=== PATIENT | female | born 1985 | race Caucasian/White ===

== ENCOUNTER 2016-11-25 15:12 | Emergency (ER) | payer SELFPAY ==
[~2016-11-25] VITALS: Ht 157.5 cm; Wt 91.0 kg
[~2016-11-25 15:12] MED LIST: ACET-789 PO; ACHD5005 PO; AMOX875T2 PO; AZIT-21 PO; BPR150TCR; CEFD300C3 PO; CEFU250T PO; CEPH-506 PO; CEPH250C PO; CEPH500C PO; CIPR500T4 PO; CODE118S2 PO; CYCL10TA9 PO; DCS100C PO; DICY10CA12 PO; DICY20TA57 PO; DOXY1TAB3 PO; FERR-84 PO; FERR325T74; FLUO10CA29 PO; HYDR-3714 PO; HYDR-3729 PO; HYDR-3812 PO; HYDR-3816 PO; HYDR115S2 PO; HYDR15SO8 PO; IBP800T PO; IBUP-1773 PO; LEVO500T2 PO; LOPE2CAP PO; METR500T PO; NAPR-243 PO; NITR-65 PO; NITR100C PO; OMEP-10 PO; ONDA4TAB11 PO; ONDA8TAB9 PO; ONDAN4ODT PO; OXYC-12; OXYC-197 PO; OXYC1TAB87 PO; PENI500T PO; PRD20T PO; PREN-115 PO; PREN1TAB39; PREN1TAB54; PREN1TAB71 PO; PRM25T PO; PRNMV1T PO; PROC10TA PO; PROM25SU43 RC; PROM25SU8 RC; PROM25TA14 PO; RANI15SY PO; SERT50TA PO; SERT50TA2 PO; TERC20CR4 VG
--- NOTE | 2016-11-25 15:26 | ED General ---
General Chief Complaint: Chest Pain Stated Complaint: CP Source of Information: Patient, EMS History of Present Illness Time Seen by Provider: 15:05 Initial Comments PT ARRIVES VIA EMS FROM COURTHOUSE/CARE HOME--PT WAS IN PROCESS OF GOING TO CARE HOME WHEN SHE SUDDENLY C/O CHEST PAIN AND STARTED SHAKING AND GETTING SHORT OF BREATH ( "FEELS LIKE SHE CAN'T GET ANY AIR IN" )AND STARTED GETTING DIZZY AND HAVING TINGLING ALL OVER AND ARMS AND LEGS FEEL NUMB, AND HER VISION IS STARTING TO GET BLURRY PT STATES SHE HAD A "SEIZURE"--EMS REPORT THAT POLICE HAD MONITOR/CAMERA ON PT AND THERE WAS NO SEIZURE ACTIVITY WITNESSED PT IS EXTREMELY ANXIOUS AND HYPERVENTILATING AND TREMULOUS ON ARRIVAL PT STATES THIS HAS HAPPENED BEFORE PT STATES SHE WAS AT [facility] YESTERDAY FOR BACK PAIN AND DX WITH UTI, AND WAS GIVEN RX FOR ANTIBIOTICS, BUT PT HAS NOT GOTTEN IT FILLED PT ALSO STATES SHE WAS DX WITH YESTERDAY--HAD A + HOME TEST , AND AT THE ER WELL LMP END OF SEPTEMBER PT IS AB 1--LAST DELIVERY 01/2016 PCP: DR. SHOEMAKER Allergies and Home Medications Allergies Coded Allergies: sulfamethoxazole (Verified Allergy, Unknown, 09/17/14) tramadol (Verified Allergy, Unknown, 09/17/14) trimethoprim (Verified Allergy, Unknown, 09/17/14) Constitutional: see HPI, dizziness EENTM: blurred vision, see HPI Respiratory: see HPI, short of breath Cardiovascular: see HPI, chest pain Gastrointestinal: no symptoms reported Genitourinary: see HPI : Yes LMP: Oct 09, 2016 Musculoskeletal: see HPI (SHALKING ALL OVER) Skin: no symptoms reported Psychiatric/Neurological: See HPI, Anxiety, Numbness, Paresthesia, Tingling, Tremors Hematologic/Lymphatic: No Symptoms Reported Immunological/Allergic: no symptoms reported Past Luppgci-Ydpvno-Tmgufp Hx Patient Social History Alcohol Use: Occasionally Uses Recreational Drug Use: Yes (THC, METH, BENZO'S, OTHERS) Drug of Choice: cannibus Smoking Status: Current Everyday Smoker (1 PPD) Type Used: Cigarettes Recent Hopitalizations: No Immunizations Up To Date Tetanus Booster (TDap): More than 5yrs Date of Influenza Vaccine: Apr 21, 2015 Seasonal Allergies Seasonal Allergies: No Surgeries HX Surgeries: Yes ( X 5; CLOSED REDUCTION OF ANKLE FX) Surgeries: Adenoidectomy, Section, Gallbladder, Orthopedic Respiratory Hx Respiratory Disorders: No Cardiovascular Hx Cardiac Disorders: No Neurological Hx Neurological Disorders: No Reproductive System : Yes Hx : 7 Hx Para: 5 Hx Total # of Abortions (Spona: 1 (1 ELECIVE ) Hx Reproductive Disorders: No Sexually Transmitted Disease: No HIV/AIDS: No Female Reproductive Disorders: Denies Genitourinary Hx Genitourinary Disorders: Yes Genitourinary Disorders: Bladder Infection, UTI-Chronic Gastrointestinal Hx Gastrointestinal Disorders: Yes Gastrointestinal Disorders: Gastroesophageal Reflux Musculoskeletal Hx Musculoskeletal Disorders: Yes Musculoskeletal Disorders: Degenerate Disk Disease, Chronic Back Pain Endocrine Hx Endocrine Disorders: No HEENT HX ENT Disorders: No Cancer Hx Cancer: No Psychosocial Hx Psychiatric Problems: Yes Behavioral Health Disorders: Anxiety, Depression Integumentary HX Skin/Integumentary Disorder: No Blood Transfusions Hx Blood Disorders: Yes (ANEMIA) Hx of Blood Transfusion YES Adverse Reaction to a Blood Tr: No Family Medical History Significant Family History: Cancer, Hypertension Family Medial History: Arthritis (pt's mother) FH: cancer (grandmother) Physical Exam Vital Signs Vital Sign - Last 12Hours 11/25/16 15:14 Temp 98.0 Pulse 94 Resp 24 B/P (MAP) 133/84 Pulse Ox 100 O2 Delivery Room Air Capillary Refill : General Appearance: WD/WN, Anxious, Other (PT VERY ANXIOUS, TREMULOUS, HYPERVENTILATING) HEENT: PERRL/EOMI Neck: Normal Inspection Respiratory: Normal Breath Sounds, Other (HYPERVENTILATING) Cardiovascular: Regular Rate, Rhythm, No Edema, No Murmur, Normal Peripheral Pulses Gastrointestinal: Non Tender, Soft Extremity: Normal Inspection Neurologic/Psychiatric: Alert, Oriented x3, No Motor/Sensory Deficits, stock feeder II- XII Norm as Tested, Other (ABLE TO WALK ON OWN BUT IS TREMULOUS) Skin: Normal Color, Warm/Dry Progress/Results/Core Measures Results/Orders Lab Results Laboratory Tests Test 11/25/16 15:16 11/25/16 15:31 Range/Units Urine Color YELLOW Urine Clarity CLEAR Urine pH 8 5-9 Urine Specific [place] 1.010 L 1.016-1.022 Urine Protein NEGATIVE NEGATIVE Urine Glucose (UA) NEGATIVE NEGATIVE Urine Ketones 3+ H NEGATIVE Urine Nitrite NEGATIVE NEGATIVE Urine Bilirubin NEGATIVE NEGATIVE Urine Urobilinogen NORMAL NORMAL MG/DL Urine Leukocyte Esterase 1+ H NEGATIVE Urine RBC (Auto) NEGATIVE NEGATIVE Urine RBC NONE /HPF Urine WBC 5-10 H /HPF Urine Squamous Epithelial Cells 10-25 H /HPF Urine Crystals NONE /LPF Urine Bacteria MODERATE H /HPF Urine Casts NONE /LPF Urine Mucus NEGATIVE /LPF Urine Culture Indicated YES Urine Opiates Screen NEGATIVE NEGATIVE Urine Oxycodone Screen NEGATIVE NEGATIVE Urine Methadone Screen NEGATIVE NEGATIVE Urine Propoxyphene Screen NEGATIVE NEGATIVE Urine Barbiturates Screen NEGATIVE NEGATIVE Ur Tricyclic Antidepressants Screen NEGATIVE NEGATIVE Urine Phencyclidine Screen NEGATIVE NEGATIVE Urine Amphetamines Screen POSITIVE H NEGATIVE Urine Methamphetamines Screen POSITIVE H NEGATIVE Urine Benzodiazepines Screen POSITIVE H NEGATIVE Urine Cocaine Screen NEGATIVE NEGATIVE Urine Cannabinoids Screen POSITIVE H NEGATIVE White Blood Count 6.5 4.3-11.0 10^3/uL Red Blood Count 4.37 4.35-5.85 10^6/uL Hemoglobin 11.7 11.5-16.0 G/DL Hematocrit 36 35-52 % Mean Corpuscular Volume 82 80-99 FL Mean Corpuscular Hemoglobin 27 25-34 PG Mean Corpuscular Hemoglobin Concent 33 32-36 G/DL Red Cell Distribution Width 15.1 H 10.0-14.5 % Platelet Count 357 130-400 10^3/uL Mean Platelet Volume 10.5 H 7.4-10.4 FL Neutrophils (%) (Auto) 78 H 42-75 % Lymphocytes (%) (Auto) 17 12-44 % Monocytes (%) (Auto) 5 0-12 % Eosinophils (%) (Auto) 0 0-10 % Basophils (%) (Auto) 0 0-10 % Neutrophils # (Auto) 5.0 1.8-7.8 X 10^3 Lymphocytes # (Auto) 1.1 1.0-4.0 X 10^3 Monocytes # (Auto) 0.3 0.0-1.0 X 10^3 Eosinophils # (Auto) 0.0 0.0-0.3 10^3/uL Basophils # (Auto) 0.0 0.0-0.1 10^3/uL Sodium Level 139 135-145 MMOL/L Potassium Level 3.8 3.6-5.0 MMOL/L Chloride Level 110 H 98-107 MMOL/L Carbon Dioxide Level 19 L 21-32 MMOL/L Anion Gap 10 5-14 MMOL/L Blood Urea Nitrogen 5 L 7-18 MG/DL Creatinine 0.80 0.60-1.30 MG/DL Estimat Glomerular Filtration Rate > 60 BUN/Creatinine Ratio 6 Glucose Level 93 70-105 MG/DL Calcium Level 9.6 8.5-10.1 MG/DL Magnesium Level 1.9 1.8-2.4 MG/DL Total Bilirubin 0.5 0.1-1.0 MG/DL Aspartate Amino Transf (AST/SGOT) 16 5-34 U/L Alanine Aminotransferase (ALT/SGPT) 14 0-55 U/L Alkaline Phosphatase 59 40-136 U/L Total Creatine Kinase 83 29-168 U/L Troponin I < 0.30 <0.30 NG/ML Total Protein 7.7 6.4-8.2 G/DL Albumin 4.4 3.2-4.5 G/DL TSH [place] Testing 0.89 0.35-4.94 UIU/ML Serum Test, Qualitative POSITIVE NEGATIVE Serum Alcohol < 10 <10 MG/DL My Orders Orders - SIMON CROOK DO Saline Lock/Iv-Start (11/25/16 15:16) Ekg Tracing (11/25/16 15:16) Monitor-Rhythm Ecg Trace Only (11/25/16 15:16) Alcohol (11/25/16 15:16) Cbc With Automated Diff (11/25/16 15:16) Comprehensive Metabolic Panel (11/25/16 15:16) Creatine Kinase (11/25/16 15:16) Drug Screen Stat (Urine) (11/25/16 15:16) Hcg,Qualitative Serum (11/25/16 15:16) Magnesium (11/25/16 15:16) Thyroid Analyzer (11/25/16 15:16) Troponin I (11/25/16 15:16) Ua Culture If Indicated (11/25/16 15:16) Urine Culture (11/25/16 15:16) Vital Signs/I&O Vital Sign - Last 12Hours 11/25/16 15:14 Temp 98.0 Pulse 94 Resp 24 B/P (MAP) 133/84 Pulse Ox 100 O2 Delivery Room Air Progress Note : Progress Note SYMPTOMS RESOLVED DURING ER STAY, WITHOUT TREATMENT, AND PT SLEPT SOUNDLY FOR REMAINDER OF ER STAY ECG Initial ECG Impression Time: 15:12 Initial ECG Rate: 91 Initial ECG Rhythm: Normal Sinus Initial ECG Comparisson: No Previous ECG Available Departure Communication Progress Notes [facility] DEPUT[facility] HERE PRIOR TO PT'S DISMISSAL--DOES NOT HAVE A WARRANT AT THIS TIME, SO PT IS TO BE DISMISSED AND IS NOT IN THEIR CUSTODY Impression Impression: Primary Impression: Hyperventilation Additional Impressions: Illicit drug use RECENT DX OF UTI (urinary tract infection) Disposition: HOME, SELF-CARE Condition: Improved Departure-Patient Inst. Referrals: DESHAUN SHOEMAKER MD (PCP/Family) Primary Care Physician Patient Instructions: Chest Pain That Is Not Caused by the Heart (DC), Drug Abuse and Drug Addiction (DC), Hyperventilation, Urinary Tract Infection, Adult (DC) Add. Discharge Instructions: NO DRUGS OR ALCOHOL!! GET YOUR ANTIBIOTIC PRESCRIPTION FOR UTI FILLED TODAY AND TAKE DIRECTED TYLENOL NEEDED FOR PAIN FOLLOW UP WITH OB DR. SOON POSSIBLE FOR CARE All discharge instructions reviewed with patient and/or family. Voiced understanding. SIMON CROOK DO November 25, 2016 15:26
[2016-11-25 15:31] LABS: BILIRUBIN,URINE NEGATIVE (NEGATIVE); KETONES,URINE 3+ (NEGATIVE); LEUKOCYTE ESTERASE ,URINE 1+ (NEGATIVE); NITRITE,URINE NEGATIVE (NEGATIVE); PH,URINE 8 (5-9); PROTEIN,URINE NEGATIVE (NEGATIVE); UROBILINOGEN,URINE NORMAL (NORMAL)
[2016-11-25 15:41] LABS: BASOPHILS % (AUTO) 0 % (0-10); EOSINOPHILS % (AUTO) 0 % (0-10); LYMPHOCYTES # (AUTO) 1.1 X 10^3 (1.0-4.0); LYMPHOCYTES % (AUTO) 17 % (12-44); MEAN CORPUSCULAR HEMOGLOBIN 27 PG (25-34); MEAN CORPUSCULAR HGB CONC 33 G/DL (32-36); MEAN CORPUSCULAR VOLUME 82 FL (80-99); MEAN PLATELET VOLUME 10.5 FL (7.4-10.4); MONOCYTES # (AUTO) 0.3 X 10^3 (0.0-1.0); MONOCYTES % (AUTO) 5 % (0-12); NEUTROPHILS % (AUTO) 78 % (42-75); PLATELET COUNT 357 10^3/uL (130-400); RED BLOOD COUNT 4.37 10^6/uL (4.35-5.85); RED CELL DISTRIBUTION WIDTH 15.1 % (10.0-14.5); WHITE BLOOD COUNT 6.5 10^3/uL (4.3-11.0)
[2016-11-25 16:00] LABS: ALANINE AMINOTRANSFERASE 14 U/L (0-55); ALBUMIN 4.4 G/DL (3.2-4.5); ANION GAP 10 MMOL/L (5-14); ASPARTATE AMINO TRANSFERASE 16 U/L (5-34); BILIRUBIN,TOTAL 0.5 MG/DL (0.1-1.0); BLOOD UREA NITROGEN 5 MG/DL (7-18); BUN/CREATININE RATIO 6; CALCIUM 9.6 MG/DL (8.5-10.1); CARBON DIOXIDE 19 MMOL/L (21-32); CHLORIDE 110 MMOL/L (98-107); CREATINE KINASE 83 U/L (29-168); GFR ESTIMATED > 60; GLUCOSE 93 MG/DL (70-105); MAGNESIUM 1.9 MG/DL (1.8-2.4); POTASSIUM 3.8 MMOL/L (3.6-5.0); SODIUM 139 MMOL/L (135-145); TOTAL PROTEIN 7.7 G/DL (6.4-8.2)
[2016-11-25 16:08] LABS: ALCOHOL < 10 MG/DL (<10)
[2016-11-25 16:19] LABS: TROPONIN I < 0.30 NG/ML (<0.30)
[2016-11-25 16:58] VITALS: BP 130/86
== END 2016-11-25 16:58 | disposition home or self-care (01) ==
LOC: EDUNIT# 15:12 → ER 15:13
DX: R06.4 Hyperventilation (principal); O23.41 Unspecified infection of urinary tract in pregnancy, first trimester; O99.331 Smoking (tobacco) complicating pregnancy, first trimester; F17.210 Nicotine dependence, cigarettes, uncomplicated; O99.321 Drug use complicating pregnancy, first trimester; F15.90 Other stimulant use, unspecified, uncomplicated; F12.90 Cannabis use, unspecified, uncomplicated; F13.90 Sedative, hypnotic, or anxiolytic use, unspecified, uncomplicated; Z3A.01 Less than 8 weeks gestation of pregnancy
CPT/HCPCS: 36415; 80053; 80306; 80320; 81000; 82550; 83735; 84443; 84484; 84703; 85025; 87088; 93005; 93041

== ENCOUNTER → 2016-12-25 | Outpatient (CLI) | payer MEDICAID, OTHER ==
--- NOTE | 2016-12-25 14:59 | Diagnostic Imaging Report ---
First trimester OB ultrasound. INDICATION: Dating. FINDINGS: There is a normal-appearing single intrauterine . An embryo is seen with cardiac activity at 165 beats per minute. The crown-rump length is at 9 weeks and one day. EFRAIN is 07/29/17. The ovaries are obscured by bowel gas. IMPRESSION: Live single intrauterine . Dictated by: Dictated on workstation # [id number]
== END ==
LOC: RAD 14:09
PROVIDERS: ATTEND Family Medicine
DX: Z36 Encounter for antenatal screening of mother (principal); Z3A.09 9 weeks gestation of pregnancy
CPT/HCPCS: 76801

== ENCOUNTER 2017-05-28 20:34 | Outpatient (CLI) | payer MEDICAID ==
[~2017-05-28] VITALS: Ht 157.5 cm; Wt 98.6 kg
[~2017-05-28 20:34] MED LIST changes: +FOLI1TAB24 PO; +PREN-37 PO
[2017-05-28 20:50] VITALS: BP 111/63
[2017-05-28] MEDS ORDERED: CITA10TA12 PO (20:56)
[2017-05-28 21:05] LABS: BILIRUBIN,URINE NEGATIVE (NEGATIVE); KETONES,URINE NEGATIVE (NEGATIVE); LEUKOCYTE ESTERASE ,URINE 2+ (NEGATIVE); NITRITE,URINE NEGATIVE (NEGATIVE); PH,URINE 7 (5-9); PROTEIN,URINE NEGATIVE (NEGATIVE); UROBILINOGEN,URINE NORMAL (NORMAL)
--- NOTE | 2017-05-29 10:06 | Physician Query-Final Dx ---
TARA ANAND 05/29/17 1006: Clinic Account Progress/Dx Physician Query: Please give diagnosis Date of Service May 28, 2017 at 20:34 VALERIA MARTINEZ DO 06/01/17 0709: Clinic Account Progress/Dx DIAGNOSIS: Diagnosis 35 week IUP Blood in stool TARA ANAND May 29, 2017 10:06 VALERIA MARTINEZ DO Jun 01, 2017 07:09
== END 2017-05-28 22:00 | disposition home or self-care (01) ==
LOC: WSo 20:34 → LDRP 20:35 → WSo 22:00
PROVIDERS: ATTEND Obstetrics & Gynecology
DX: O99.613 Diseases of the digestive system complicating pregnancy, third trimester (principal); K92.1 Melena; Z3A.35 35 weeks gestation of pregnancy
CPT/HCPCS: 81000; 87088; 99212

== ENCOUNTER 2017-06-05 13:58 | Observation (INO) | payer MEDICAID ==
[~2017-06-05] VITALS: Ht 157.5 cm; Wt 99.0 kg
[~2017-06-05 13:58] MED LIST changes: +CITA10TA12 PO
[2017-06-05 14:04] VITALS: BP 126/84
[2017-06-05 14:15] VITALS: BP 113/72
[2017-06-05 15:10] LABS: BILIRUBIN,URINE 1+ (NEGATIVE); KETONES,URINE 3+ (NEGATIVE); LEUKOCYTE ESTERASE ,URINE 3+ (NEGATIVE); NITRITE,URINE POSITIVE (NEGATIVE); PH,URINE 6 (5-9); PROTEIN,URINE 2+ (NEGATIVE); UROBILINOGEN,URINE 1 MG/DL (NORMAL)
[2017-06-05 15:19] LABS: SQUAMOUS EPITHELIAL CELL,UR >50 /HPF
[2017-06-05] MEDS ORDERED: ONDANSETRON 4 MG/2 ML (SDV) Z0FRAN IVP ONE (15:30)
[2017-06-05] MEDS: D5 LR IV SOLUTION 1,000 ML IV SCH ×2 (15:40→20:04)
[2017-06-05 15:57] LABS: BASOPHILS % (AUTO) 0 % (0-10); EOSINOPHILS % (AUTO) 0 % (0-10); LYMPHOCYTES # (AUTO) 0.4 X 10^3 (1.0-4.0); LYMPHOCYTES % (AUTO) 3 % (12-44); MEAN CORPUSCULAR HEMOGLOBIN 28 PG (25-34); MEAN CORPUSCULAR HGB CONC 34 G/DL (32-36); MEAN CORPUSCULAR VOLUME 83 FL (80-99); MEAN PLATELET VOLUME 10.6 FL (7.4-10.4); MONOCYTES # (AUTO) 0.5 X 10^3 (0.0-1.0); MONOCYTES % (AUTO) 4 % (0-12); NEUTROPHILS # (AUTO) 11.9 X 10^3 (1.8-7.8); NEUTROPHILS % (AUTO) 93 % (42-75); PLATELET COUNT 246 10^3/uL (130-400); WHITE BLOOD COUNT 12.8 10^3/uL (4.3-11.0)
[2017-06-05 16:10] LABS: ALANINE AMINOTRANSFERASE 12 U/L (0-55); ALBUMIN 3.3 GM/DL (3.2-4.5); AMYLASE 64 U/L (25-125); ANION GAP 11 MMOL/L (5-14); ASPARTATE AMINO TRANSFERASE 18 U/L (5-34); BILIRUBIN,DIRECT 0.1 MG/DL (0.0-0.3); BILIRUBIN,INDIRECT 0.2 MG/DL; BILIRUBIN,TOTAL 0.3 MG/DL (0.1-1.0); BLOOD UREA NITROGEN 8 MG/DL (7-18); BUN/CREATININE RATIO 14; CALCIUM 8.5 MG/DL (8.5-10.1); CARBON DIOXIDE 18 MMOL/L (21-32); CHLORIDE 110 MMOL/L (98-107); CREATININE SERUM 0.59 MG/DL (0.60-1.30); GFR ESTIMATED > 60; GLUCOSE 88 MG/DL (70-105); LIPASE 13 U/L (8-78); SODIUM 139 MMOL/L (135-145); TOTAL PROTEIN 7.1 GM/DL (6.4-8.2)
[2017-06-05 16:18] LABS: BAND NEUTROPHILS 13 %; BASOPHILS % (MANUAL) 0 %; EOSINOPHILS % (MANUAL) 0 %; LYMPHOCYTES % (MANUAL) 8 %; NEUTROPHILS % (MANUAL) 77 %
[2017-06-05] MEDS ORDERED: cefTRIAXone 1 GM (ROCEPHIN) VIAL ONE (16:32)
[2017-06-05] MEDS ORDERED: NS (IVPB) 50 ML ONE (16:34)
[2017-06-05] MEDS ORDERED: PROMETHAZINE INJ 25 MG/ML (PHENERGAN) AMP IVP ONE (16:45)
[2017-06-05] MEDS ORDERED: cefTRIAXone INJECTION 1,000 MG in NS (IVPB) 50 ML IV ONE (16:45)
[2017-06-05] MEDS ORDERED: SUCRALFATE 1 GM (CARAFATE) TAB PO NR (18:00)
[2017-06-05] MEDS: ONDANSETRON 4 MG/2 ML (SDV) Z0FRAN IVP PRN (18:50)
[2017-06-05] MEDS ORDERED: CATHETER FLUSH 10 ML SYR IV PRN (19:00)
[2017-06-05] MEDS ORDERED: INFLUENZA TRIvalent 2017-2018 0.5 ML/45 MCG SYR IM ONE (19:30)
[2017-06-05 20:04] VITALS: BP 99/53
[2017-06-05] MEDS: PROMETHAZINE INJ 25 MG/ML (PHENERGAN) AMP IVP PRN (21:21)
[2017-06-06] MEDS: ONDANSETRON 4 MG/2 ML (SDV) Z0FRAN IVP PRN ×3 (00:25→10:36)
[2017-06-06] MEDS: PROMETHAZINE INJ 25 MG/ML (PHENERGAN) AMP IVP PRN (06:27)
[2017-06-06] MEDS ORDERED: cefTRIAXone INJECTION 1,000 MG in NS (IVPB) 50 ML IV ONE (08:15)
--- NOTE | 2017-06-06 08:25 | History & Physical-OB ---
OB - Chief Complaint & HPI Date/Time Date of Admission: Date of Admission: 06/05/2017 Time Seen by Provider: 08:20 Chief Complaint/History OB-Reason for Admission/Chief: Medical Complication Hx : 7 Hx Para: 5 Expected Date of Delivery: Jul 28, 2017 Gestational Age in Weeks: 32 Gestational Age in Days: 3 Admission Nurse Assessment Rev: Yes History of Labs A neg Antibody + K and D RI RPR NR HBsAg NR HIV NR GC neg GBS unknown Other Laboratory Tests Test 06/05/17 14:15 06/05/17 15:41 Range/Units Urine Color YELLOW Urine Clarity VERY CLOUDY H Urine pH 6 5-9 Urine Specific [place] 1.020 1.016-1.022 Urine Protein 2+ H NEGATIVE Urine Glucose (UA) NEGATIVE NEGATIVE Urine Ketones 3+ H NEGATIVE Urine Nitrite POSITIVE H NEGATIVE Urine Bilirubin 1+ H NEGATIVE Urine Urobilinogen 1 NORMAL MG/DL Urine Leukocyte Esterase 3+ H NEGATIVE Urine RBC (Auto) 1+ H NEGATIVE Urine RBC 2-5 H /HPF Urine WBC 10-25 H /HPF Urine Squamous Epithelial Cells >50 H /HPF Urine Crystals NONE /LPF Urine Bacteria FEW H /HPF Urine Casts NONE /LPF Urine Mucus SMALL H /LPF Urine Culture Indicated YES Urine Opiates Screen NEGATIVE NEGATIVE Urine Oxycodone Screen NEGATIVE NEGATIVE Urine Methadone Screen NEGATIVE NEGATIVE Urine Propoxyphene Screen NEGATIVE NEGATIVE Urine Barbiturates Screen NEGATIVE NEGATIVE Ur Tricyclic Antidepressants Screen NEGATIVE NEGATIVE Urine Phencyclidine Screen NEGATIVE NEGATIVE Urine Amphetamines Screen NEGATIVE NEGATIVE Urine Methamphetamines Screen NEGATIVE NEGATIVE Urine Benzodiazepines Screen NEGATIVE NEGATIVE Urine Cocaine Screen NEGATIVE NEGATIVE Urine Cannabinoids Screen NEGATIVE NEGATIVE White Blood Count 12.8 H 4.3-11.0 10^3/uL Red Blood Count 4.70 4.35-5.85 10^6/uL Hemoglobin 13.2 11.5-16.0 G/DL Hematocrit 39 35-52 % Mean Corpuscular Volume 83 80-99 FL Mean Corpuscular Hemoglobin 28 25-34 PG Mean Corpuscular Hemoglobin Concent 34 32-36 G/DL Red Cell Distribution Width 13.0 10.0-14.5 % Platelet Count 246 130-400 10^3/uL Mean Platelet Volume 10.6 H 7.4-10.4 FL Neutrophils (%) (Auto) 93 H 42-75 % Lymphocytes (%) (Auto) 3 L 12-44 % Monocytes (%) (Auto) 4 0-12 % Eosinophils (%) (Auto) 0 0-10 % Basophils (%) (Auto) 0 0-10 % Neutrophils # (Auto) 11.9 H 1.8-7.8 X 10^3 Lymphocytes # (Auto) 0.4 L 1.0-4.0 X 10^3 Monocytes # (Auto) 0.5 0.0-1.0 X 10^3 Eosinophils # (Auto) 0.0 0.0-0.3 10^3/uL Basophils # (Auto) 0.0 0.0-0.1 10^3/uL Neutrophils % (Manual) 77 % Lymphocytes % (Manual) 8 % Monocytes % (Manual) 2 % Eosinophils % (Manual) 0 % Basophils % (Manual) 0 % Band Neutrophils 13 % Blood Morphology Comment NORMAL Sodium Level 139 135-145 MMOL/L Potassium Level 4.0 3.6-5.0 MMOL/L Chloride Level 110 H 98-107 MMOL/L Carbon Dioxide Level 18 L 21-32 MMOL/L Anion Gap 11 5-14 MMOL/L Blood Urea Nitrogen 8 7-18 MG/DL Creatinine 0.59 L 0.60-1.30 MG/DL Estimat Glomerular Filtration Rate > 60 BUN/Creatinine Ratio 14 Glucose Level 88 70-105 MG/DL Calcium Level 8.5 8.5-10.1 MG/DL Total Bilirubin 0.3 0.1-1.0 MG/DL Direct Bilirubin 0.1 0.0-0.3 MG/DL Indirect Bilirubin 0.2 MG/DL Aspartate Amino Transf (AST/SGOT) 18 5-34 U/L Alanine Aminotransferase (ALT/SGPT) 12 0-55 U/L Alkaline Phosphatase 157 H 40-136 U/L Total Protein 7.1 6.4-8.2 GM/DL Albumin 3.3 3.2-4.5 GM/DL Amylase Level 64 25-125 U/L Lipase 13 8-78 U/L Allergies and Home Medications Allergies Coded Allergies: sulfamethoxazole (Verified Allergy, Unknown, 09/17/14) tramadol (Verified Allergy, Unknown, 09/17/14) trimethoprim (Verified Allergy, Unknown, 09/17/14) Home Medications Citalopram Hydrobromide 10 Mg Tablet, 10 MG PO DAILY, (Reported) Folic Acid 1 Mg Tablet, 1 MG PO DAILY, (Reported) Vit/Iron Fumarate/FA 1 Each Tablet, 1 EACH PO DAILY, (Reported) OB - History Hx of Present Care: Yes Obstetrical History Hx : 7 Hx Para: 5 Hx Termination: No Hx Total # of Abortions (Spona: 1 Hx Multiple Gestation: No Hx Stillbirth: No Hx Complication: Yes (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, Anti-porsche antibodies) Hx Induced Hypertens: No Hx Maternal Gestational Diabet: No Delivery History Hx Dystocia: No Hx Large For Gestational Age I: No Hx Small for Gestational Age I: No Hx Section: Yes (x4, anti-D antibody) Hx Vaginal Delivery Post C-Sec: No Hx Blood Disorders: Yes (ANEMIA) Adverse Rxn to Tranfusion: No Patient Past Medical History Hx of substance abuse, CIN2, Anti K and D antibodies Social History/Family History HIV/AIDS: No Recent Infectious Disease Expo: No Sexually Transmitted Disease: No Immunizations Hepatitis A: No Hepatitis B: No Tetanus Booster (TDap): More than 5yrs Date of Influenza Vaccine: Apr 21, 2015 OB - Admission Exam Physical Exam Vitals: Vital Signs 06/05/17 06/05/17 20:04 21:21 Temp 99.1 Pulse 86 Resp 18 B/P (MAP) 99/53 O2 Delivery Room Air HEENT: NCAT Heart: Rhythm Normal Lungs: Clear Abdomen: Gravid Extremities: Normal Reflexes: Normal Cervical Dilatation: Fingertip Effacement: 75% Station: -2 Membranes: Intact Heart Rate: 130's Accelerations: Accelerations Present Decelerations: Variable Decelerations (1x variable last night) Short Term Variability: Present Residential Variability: Average (6-25) Contractions on Admission: >10 Minutes Apart Intensity: Mild Labs Laboratory Tests Test 06/05/17 14:15 06/05/17 15:41 Range/Units Urine Color YELLOW Urine Clarity VERY CLOUDY H Urine pH 6 5-9 Urine Specific [place] 1.020 1.016-1.022 Urine Protein 2+ H NEGATIVE Urine Glucose (UA) NEGATIVE NEGATIVE Urine Ketones 3+ H NEGATIVE Urine Nitrite POSITIVE H NEGATIVE Urine Bilirubin 1+ H NEGATIVE Urine Urobilinogen 1 NORMAL MG/DL Urine Leukocyte Esterase 3+ H NEGATIVE Urine RBC (Auto) 1+ H NEGATIVE Urine RBC 2-5 H /HPF Urine WBC 10-25 H /HPF Urine Squamous Epithelial Cells >50 H /HPF Urine Crystals NONE /LPF Urine Bacteria FEW H /HPF Urine Casts NONE /LPF Urine Mucus SMALL H /LPF Urine Culture Indicated YES Urine Opiates Screen NEGATIVE NEGATIVE Urine Oxycodone Screen NEGATIVE NEGATIVE Urine Methadone Screen NEGATIVE NEGATIVE Urine Propoxyphene Screen NEGATIVE NEGATIVE Urine Barbiturates Screen NEGATIVE NEGATIVE Ur Tricyclic Antidepressants Screen NEGATIVE NEGATIVE Urine Phencyclidine Screen NEGATIVE NEGATIVE Urine Amphetamines Screen NEGATIVE NEGATIVE Urine Methamphetamines Screen NEGATIVE NEGATIVE Urine Benzodiazepines Screen NEGATIVE NEGATIVE Urine Cocaine Screen NEGATIVE NEGATIVE Urine Cannabinoids Screen NEGATIVE NEGATIVE White Blood Count 12.8 H 4.3-11.0 10^3/uL Red Blood Count 4.70 4.35-5.85 10^6/uL Hemoglobin 13.2 11.5-16.0 G/DL Hematocrit 39 35-52 % Mean Corpuscular Volume 83 80-99 FL Mean Corpuscular Hemoglobin 28 25-34 PG Mean Corpuscular Hemoglobin Concent 34 32-36 G/DL Red Cell Distribution Width 13.0 10.0-14.5 % Platelet Count 246 130-400 10^3/uL Mean Platelet Volume 10.6 H 7.4-10.4 FL Neutrophils (%) (Auto) 93 H 42-75 % Lymphocytes (%) (Auto) 3 L 12-44 % Monocytes (%) (Auto) 4 0-12 % Eosinophils (%) (Auto) 0 0-10 % Basophils (%) (Auto) 0 0-10 % Neutrophils # (Auto) 11.9 H 1.8-7.8 X 10^3 Lymphocytes # (Auto) 0.4 L 1.0-4.0 X 10^3 Monocytes # (Auto) 0.5 0.0-1.0 X 10^3 Eosinophils # (Auto) 0.0 0.0-0.3 10^3/uL Basophils # (Auto) 0.0 0.0-0.1 10^3/uL Neutrophils % (Manual) 77 % Lymphocytes % (Manual) 8 % Monocytes % (Manual) 2 % Eosinophils % (Manual) 0 % Basophils % (Manual) 0 % Band Neutrophils 13 % Blood Morphology Comment NORMAL Sodium Level 139 135-145 MMOL/L Potassium Level 4.0 3.6-5.0 MMOL/L Chloride Level 110 H 98-107 MMOL/L Carbon Dioxide Level 18 L 21-32 MMOL/L Anion Gap 11 5-14 MMOL/L Blood Urea Nitrogen 8 7-18 MG/DL Creatinine 0.59 L 0.60-1.30 MG/DL Estimat Glomerular Filtration Rate > 60 BUN/Creatinine Ratio 14 Glucose Level 88 70-105 MG/DL Calcium Level 8.5 8.5-10.1 MG/DL Total Bilirubin 0.3 0.1-1.0 MG/DL Direct Bilirubin 0.1 0.0-0.3 MG/DL Indirect Bilirubin 0.2 MG/DL Aspartate Amino Transf (AST/SGOT) 18 5-34 U/L Alanine Aminotransferase (ALT/SGPT) 12 0-55 U/L Alkaline Phosphatase 157 H 40-136 U/L Total Protein 7.1 6.4-8.2 GM/DL Albumin 3.3 3.2-4.5 GM/DL Amylase Level 64 25-125 U/L Lipase 13 8-78 U/L OB - Assessment/Plan/Diagnosis Assessment Assessment: observation Plan Other Plan IVF hydration 1gm Rocephin q 24 hours x 2 doses then sending patient home on Macrobid UDS negative Discharge home once tolerating diet Discharge Diagnosis Diagnosis: 31yo @ 32.3 Acute gastroenteritis UTI Hx of Drug use VALERIA MARTINEZ DO Jun 06, 2017 8:25 am
--- OUTSIDE RECORDS SUMMARY | 2017-06-06 08:38 | XMS REPORT | Clinical Summary ---
Author Author [facility] Organization [facility] Address Unknown Phone Unavailable Care Team Providers Care Production Staff Worker Name Role Phone PCP Unavailable Source Comments Some departments are not documenting in the electronic medical record. If you do not see the information that you expected, contact Release of Information in the Health Information Management department at [phone] for further assistance in locating additional records.[facility] Allergies Active Allergy Reactions Severity Noted Date Comments Sulfa (Sulfonamide UNKNOWN Low 09/03/2015 Antibiotics) Tramadol SEE COMMENTS Low 09/03/2015 swelling Current Medications Prescription Sig. Disp. Refills Start End Date Status Date promethazine (PHENERGAN) Take 25 mg by mouth every Active 25 mg tablet 6 hours as needed for Nausea. PROMETHAZINE HCL Take by mouth. Active (PHENERGAN PO) VIT Take by mouth. 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 Social History Tobacco Use Types Packs/Day Years Used Date Current Every Day Smoker Sex Assigned at Date Recorded Not on file Last Filed Vital Signs Vital Sign Reading Time Taken Blood Pressure 104/59 09/03/2015 1:49 PM SENIOR CLINICAL RESEARCH SCIENTIST Pulse 87 09/03/2015 1:49 PM SENIOR CLINICAL RESEARCH SCIENTIST Temperature - - Respiratory Rate - - Oxygen Saturation - - Inhaled Oxygen - - Concentration Weight 82.1 kg (181 lb) 09/03/2015 1:49 PM SENIOR CLINICAL RESEARCH SCIENTIST Height 157.5 cm (5' 2") 09/03/2015 1:49 PM SENIOR CLINICAL RESEARCH SCIENTIST Body Mass Index 33.11 09/03/2015 1:49 PM SENIOR CLINICAL RESEARCH SCIENTIST Plan of Treatment Health Maintenance Due Date Last Done Comments PHYSICAL (COMPREHENSIVE) 1993 EXAM PERTUSSIS VACCINE 1997 TETANUS VACCINE 09/17/2003 CERVICAL CANCER SCREENING 2016 INFLUENZA VACCINE 02/10/2017 Results Not on filefrom Last 3 Months
--- OUTSIDE RECORDS SUMMARY | 2017-06-06 08:44 | XMS REPORT ---
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 Active 452315251 Problem Post traumatic stress disorder (PTSD) F43.10 Active 49420623 Problem Substance abuse F19.10 Active 30889316 Problem Severe single current episode of major depressive disorder, without psychotic features F32.2 Active 91432163 Problem Generalized anxiety disorder F41.1 Active 63746434 Problem examination or test, positive result V72.42 Active 155513695 Problem Need for prophylactic vaccination and inoculation, Influenza V04.81 Active 449297610 Problem Screening for malignant neoplasm of the cervix V76.2 Active 698367933 Problem Insufficient care V23.7 Active 4528282415002 Problem Screening examination for venereal disease V74.5 Active 424972730 Problem Abdominal pain, generalized 789.07 Active 374257722 ALLERGIES No Information SOCIAL HISTORY Never Assessed PLAN OF CARE VITAL SIGNS MEDICATIONS Unknown Medications RESULTS No Results PROCEDURES No Known procedures IMMUNIZATIONS No Known Immunizations MEDICAL (GENERAL) HISTORY Type Description Date Medical History 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
[2017-06-06] MEDS: D5 LR IV SOLUTION 1,000 ML IV SCH (09:30)
[2017-06-06] MEDS ORDERED: NITR-65 PO (10:59)
[2017-06-06] MEDS ORDERED: ONDA4TAB8 PO (10:59)
--- OUTSIDE RECORDS SUMMARY | 2017-06-08 14:13 | XMS REPORT | Clinical Summary ---
Author Author [facility] Organization [facility] Address Unknown Phone Unavailable Care Team Providers Care Review Consultant Name Role Phone PCP Unavailable Source Comments Some departments are not documenting in the electronic medical record. If you do not see the information that you expected, contact Release of Information in the Health Information Management department at [phone] for further assistance in locating additional records.[facility] Allergies Active Allergy Reactions Severity Noted Date [...] Taken Blood Pressure 104/59 09/03/2015 1:49 PM PIPELINE WELDER Pulse 87 09/03/2015 1:49 PM PIPELINE WELDER Temperature - - Respiratory Rate - - Oxygen Saturation - - Inhaled Oxygen - - Concentration Weight 82.1 kg (181 lb) 09/03/2015 1:49 PM PIPELINE WELDER Height 157.5 cm (5' 2") 09/03/2015 1:49 PM PIPELINE WELDER Body Mass Index 33.11 09/03/2015 1:49 PM PIPELINE WELDER Plan of Treatment Health Maintenance Due Date Last Done Comments PHYSICAL (COMPREHENSIVE) 1993 EXAM PERTUSSIS VACCINE 1997 TETANUS VACCINE 09/17/2003 CERVICAL CANCER SCREENING 2016 INFLUENZA VACCINE 02/10/2017 Results Not on filefrom Last 3 Months
== END 2017-06-06 10:56 | disposition home or self-care (01) ==
LOC: WSo 13:58 → LDRP 13:59 → UNDOADMOB 06-06 08:21 → WSo 06-06 08:21 → LDRP 06-06 08:21 → UNDODISOB 06-06 11:12 → EDSTATUS 06-08 14:08
PROVIDERS: ADMIT Obstetrics & Gynecology; ATTEND Obstetrics & Gynecology
DX: O99.613 Diseases of the digestive system complicating pregnancy, third trimester (principal); K52.9 Noninfective gastroenteritis and colitis, unspecified; O23.43 Unspecified infection of urinary tract in pregnancy, third trimester; O09.43 Supervision of pregnancy with grand multiparity, third trimester; O99.323 Drug use complicating pregnancy, third trimester; F19.11 Other psychoactive substance abuse, in remission; Z3A.32 32 weeks gestation of pregnancy
CPT/HCPCS: 36415; 80053; 80306; 81000; 82150; 82247; 82248; 83690; 85007; 85027; 87077; 87088; 87186; 96361; 96374; 96375; 96376; 99211; G0378

== ENCOUNTER 2017-06-24 10:45 | Outpatient (CLI) | payer MEDICAID ==
[~2017-06-24] VITALS: Ht 157.5 cm; Wt 102.6 kg
[~2017-06-24 10:45] MED LIST changes: +ONDA4TAB8 PO
[2017-06-24 10:55] VITALS: BP 129/59
[2017-06-24] MEDS ORDERED: D5 LR IV SOLUTION 1,000 ML IV SCH (11:15)
[2017-06-24] MEDS ORDERED: NS 1000 ML IV BAG IV ONE (11:15)
[2017-06-24] MEDS ORDERED: ACET-2267 PO ×2 (11:40)
[2017-06-24] MEDS ORDERED: CALC500T7 PO ×2 (11:40)
[2017-06-24 12:01] LABS: BASOPHILS % (AUTO) 0 % (0-10); EOSINOPHILS # (AUTO) 0.1 10^3/uL (0.0-0.3); EOSINOPHILS % (AUTO) 1 % (0-10); LYMPHOCYTES # (AUTO) 1.5 X 10^3 (1.0-4.0); LYMPHOCYTES % (AUTO) 17 % (12-44); MEAN CORPUSCULAR HEMOGLOBIN 28 PG (25-34); MEAN CORPUSCULAR HGB CONC 33 G/DL (32-36); MEAN CORPUSCULAR VOLUME 83 FL (80-99); MEAN PLATELET VOLUME 9.9 FL (7.4-10.4); MONOCYTES # (AUTO) 0.5 X 10^3 (0.0-1.0); MONOCYTES % (AUTO) 6 % (0-12); NEUTROPHILS # (AUTO) 6.9 X 10^3 (1.8-7.8); NEUTROPHILS % (AUTO) 77 % (42-75); PLATELET COUNT 254 10^3/uL (130-400); RED CELL DISTRIBUTION WIDTH 13.4 % (10.0-14.5)
[2017-06-24 12:23] LABS: ALANINE AMINOTRANSFERASE 7 U/L (0-55); ALBUMIN 3.1 GM/DL (3.2-4.5); ANION GAP 8 MMOL/L (5-14); ASPARTATE AMINO TRANSFERASE 12 U/L (5-34); BILIRUBIN,TOTAL 0.2 MG/DL (0.1-1.0); BLOOD UREA NITROGEN 5 MG/DL (7-18); BUN/CREATININE RATIO 9; CALCIUM 9.6 MG/DL (8.5-10.1); CARBON DIOXIDE 22 MMOL/L (21-32); CHLORIDE 104 MMOL/L (98-107); CREATININE SERUM 0.58 MG/DL (0.60-1.30); GFR ESTIMATED > 60; GLUCOSE 73 MG/DL (70-105); POTASSIUM 3.7 MMOL/L (3.6-5.0); SODIUM 134 MMOL/L (135-145); TOTAL PROTEIN 6.4 GM/DL (6.4-8.2)
[2017-06-24 12:42] LABS: THYROID STIMULATING HORMONE 0.92 UIU/ML (0.35-4.94)
[2017-06-24] MEDS ORDERED: BETAMETHASONE ACE/NA PHOS 6 MG/ML (CELESTONE SOLUSPAN) IM SCH (12:45)
[2017-06-24] MEDS ORDERED: INFLUENZA TRIvalent 2017-2018 0.5 ML/45 MCG SYR IM ONE (13:15)
[2017-06-24 13:45] VITALS: BP 118/70
--- NOTE | 2017-06-24 14:10 | Diagnostic Imaging Report ---
INDICATION: Third trimester bleeding, tachycardia. TECHNIQUE: Multiple real-time grayscale images were obtained over the gravid uterus. COMPARISON: None. FINDINGS: [place] gestation measures 35 weeks 5 days and is in cephalic position. The anterior placenta appeared normal. Amniotic fluid volume appeared normal. Estimated age is congruent with the last menstrual period. The biophysical profile is reportedly normal 02/17. IMPRESSION: Anterior placenta. No abruption or previa. Normal-volume amniotic fluid. [place] gestation measuring 35 weeks 5 days with 8 biophysical profile. Biometrical measurements are as follows: Biparietal 8.69 cm, age 35 weeks 1 days. Head circumference 32.7 cm, age 37 weeks 1 days. Abdominal circumference 30.77 cm, age 34 weeks 6 days. Femur length 6.87 cm, age 35 weeks 2 days. Sonographic estimate age: 35 weeks 5 days. Sonographic estimated date of delivery: 07/24/2017. Estimated Weight: 2607 gm (+/- 381 gm). LMP percentile: 51%. heart rate: 153 beats per minute. number: 1 of 1. Dictated by: Dictated on workstation # [id number]
--- NOTE | 2017-06-25 10:57 | Progress Note-Standard ---
Standard Progress Note Progress Notes/Assess & Plan Date Seen by Provider: Jun 24, 2017 Time Seen by Provider: 16:50 Progress/Assessment & Plan Patient was seen in office for routine Ob visit at 35 1/7 weeks. 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 She had routine NST due to the above problems. Was also complaining of rare contractions. The heart rate with 170-180 with out accelerations, minimal variability and no decelerations. On the strip, there was also evidence of uterine irritability. She states she has not used any illicit drugs . No fever. Otherwise feeling ok. Due to unknown reasons for tachycardia, she was sent to women's services for prolonged monitoring. In addition she said she had had bleeding early in the week. While on women's services, The strip initially had tachycardia, however, after monitoring for over 1 hour, and 1 liter of fluid instillation, the heart rate returned to a baseline of 140s with good variability, accelerations and no decelerations, she had few contractions. Cervix was closed. BPP 8/8. Growth adequate, normal emily with normal placenta (no evidence of abruption. However, drug screen on admission urine returned with + THC, + TCA, + benzodiazepines, + methadone, + amphetamines. I addressed the drug screen results with Beryl and she immediately declined drug usage. She was very tearful and states "I have b een clean for 7 months". She is not taking anything prescription that results in + UDS. After discussing this with her and she continued to adamantly deny usage of any drugs, I offered to do a repeat UDS. The repeat UDS done with witnessed void, was negative. So the lab agreed to retest the initial UDS. This was also negative. The same specimen that was tested initially was now negative. The lab has no explanation for this, but the patient was told of the mistaken and mis reported results. The results have been corrected and sent the [facility]. She was given betamethasone x 1 and to repeat in 24 hours in the event that baby will be delivered early. However, because testing was reassuring and heart rate improved and is more reassuring, she was sent home and instructed to followup in 1 week. GILA GREWAL DO Jun 25, 2017 10:57
--- NOTE | 2017-06-25 12:30 | Physician Query-Final Dx ---
Clinic Account Progress/Dx Physician Query: Please give diagnosis Date of Service Jun 24, 2017 at 10:45 JOHN RANDHAWA Jun 25, 2017 12:30
[2017-06-25] MEDS ORDERED: NITR-65 PO ×2 (21:19)
[2017-06-26 06:31] LABS: BENZODIAZEPINES SCREEN BLOOD Negative; SALICYLATE SCREEN BLOOD Negative; SERUM (BLOOD) DRUG SCREEN Positive; TRICYCLICS SCREEN BLOOD Negative
== END 2017-06-24 17:50 | disposition home or self-care (01) ==
LOC: WSo 10:45 → LDRP 10:45 → WSo 17:50
PROVIDERS: ATTEND Obstetrics & Gynecology
DX: O35.8XX0 Maternal care for other (suspected) fetal abnormality and damage, not applicable or unspecified (principal); Z3A.35 35 weeks gestation of pregnancy
CPT/HCPCS: 36415; 76805; 76819; 80053; 80306; 80307; 84443; 85025; 96360; 96361; 96372; 99213

== ENCOUNTER 2017-06-25 19:27 | Outpatient (CLI) | payer MEDICAID ==
[~2017-06-25] VITALS: Ht 157.5 cm; Wt 104.1 kg
[~2017-06-25 19:27] MED LIST changes: -BETAMETHASONE ACE/NA PHOS 6 MG/ML (CELESTONE SOLUSPAN) IM NR; -BETAMETHASONE ACE/NA PHOS 6 MG/ML (CELESTONE SOLUSPAN) ONE
[2017-06-25 19:42] VITALS: BP 127/76
[2017-06-25 19:50] LABS: BILIRUBIN,URINE NEGATIVE (NEGATIVE); KETONES,URINE NEGATIVE (NEGATIVE); LEUKOCYTE ESTERASE ,URINE 3+ (NEGATIVE); NITRITE,URINE NEGATIVE (NEGATIVE); PH,URINE 7 (5-9); PROTEIN,URINE NEGATIVE (NEGATIVE); UROBILINOGEN,URINE NORMAL (NORMAL)
[2017-06-25 20:01] LABS: SQUAMOUS EPITHELIAL CELL,UR 25-50 /HPF; WBC,URINE 25-50 /HPF
[2017-06-25] MEDS ORDERED: NS IV 500 ML 500 ML IV ONE (20:30)
[2017-06-25] MEDS ORDERED: NITR-65 PO (21:19)
--- NOTE | 2017-06-26 10:51 | Physician Query-Final Dx ---
TARA ANAND 06/26/17 1051: Clinic Account Progress/Dx Physician Query: Please give diagnosis Date of Service Jun 25, 2017 at 19:27 VALERIA MARTINEZ DO 06/29/17 0810: Clinic Account Progress/Dx DIAGNOSIS: Diagnosis 35 week IUP Uterine contractions Hx of substance abuse TARA ANAND Jun 26, 2017 10:51 VALERIA MARTINEZ DO Jun 29, 2017 08:10
== END 2017-06-25 21:25 | disposition home or self-care (01) ==
LOC: WSo 19:27 → LDRP 19:27 → WSo 21:25
PROVIDERS: ATTEND Obstetrics & Gynecology
DX: O47.03 False labor before 37 completed weeks of gestation, third trimester (principal); Z3A.35 35 weeks gestation of pregnancy; O99.323 Drug use complicating pregnancy, third trimester; F19.11 Other psychoactive substance abuse, in remission
CPT/HCPCS: 80306; 81000; 87088; 96360; 99213

== ENCOUNTER → 2017-06-25 | Outpatient (CLI) | payer MEDICAID ==
[~2017-06-25] MED LIST changes: +ACET-2267 PO; +BETAMETHASONE ACE/NA PHOS 6 MG/ML (CELESTONE SOLUSPAN) IM NR; +BETAMETHASONE ACE/NA PHOS 6 MG/ML (CELESTONE SOLUSPAN) ONE; +CALC500T7 PO
--- NOTE | 2017-06-26 10:50 | Physician Query-Final Dx ---
TARA ANAND 06/26/17 1050: Clinic Account Progress/Dx Physician Query: Please give diagnosis Date of Service Jun 25, 2017 at 13:51 GILA GREWAL DO 07/01/17 1504: Clinic Account Progress/Dx DIAGNOSIS: Diagnosis betamethasone injection indication - tachycardia TARA ANAND Jun 26, 2017 10:50 GILA GREWAL DO Jul 01, 2017 15:04
== END ==
LOC: WSo 13:51
PROVIDERS: ATTEND Obstetrics & Gynecology
DX: O76 Abnormality in fetal heart rate and rhythm complicating labor and delivery (principal)
CPT/HCPCS: 96372

== ENCOUNTER 2017-06-26 09:35 | Outpatient (CLI) | payer MEDICAID ==
[~2017-06-26] VITALS: Ht 157.5 cm; Wt 103.9 kg
[2017-06-26 09:52] VITALS: BP 118/70
--- NOTE | 2017-07-01 11:01 | Physician Query-Final Dx ---
TARA ANAND 07/01/17 1101: Clinic Account Progress/Dx Physician Query: Please give diagnosis Date of Service Jun 26, 2017 at 09:35 VALERIA MARTINEZ DO 07/02/17 0727: Clinic Account Progress/Dx DIAGNOSIS: Diagnosis 35 week IUP Hx of polysubstance abuse Previous Pelvic pain/pressure Uterine contractions TARA ANAND Jul 01, 2017 11:01 VALERIA MARTINEZ DO Jul 02, 2017 07:27
== END 2017-06-26 10:24 | disposition home or self-care (01) ==
LOC: LDRP 09:35 → WSo 09:35
PROVIDERS: ATTEND Obstetrics & Gynecology
DX: O47.03 False labor before 37 completed weeks of gestation, third trimester (principal); O99.323 Drug use complicating pregnancy, third trimester; F19.11 Other psychoactive substance abuse, in remission; O34.219 Maternal care for unspecified type scar from previous cesarean delivery; R10.2 Pelvic and perineal pain; Z3A.35 35 weeks gestation of pregnancy
CPT/HCPCS: 99213

== ENCOUNTER 2017-06-29 17:58 | Outpatient (CLI) | payer MEDICAID ==
[~2017-06-29] VITALS: Ht 157.5 cm; Wt 102.7 kg
[2017-06-29 18:10] VITALS: BP 128/93
[2017-06-29 18:44] LABS: BILIRUBIN,URINE NEGATIVE (NEGATIVE); KETONES,URINE NEGATIVE (NEGATIVE); LEUKOCYTE ESTERASE ,URINE 3+ (NEGATIVE); NITRITE,URINE NEGATIVE (NEGATIVE); PH,URINE 6.5 (5-9); PROTEIN,URINE NEGATIVE (NEGATIVE); UROBILINOGEN,URINE NORMAL (NORMAL)
[2017-06-29 18:52] VITALS: BP 127/82
[2017-06-29 19:09] LABS: TRICHOMONAS,URINE FEW /HPF
--- NOTE | 2017-06-29 19:51 | Diagnostic Imaging Report ---
INDICATION: Leaking fluid. COMPARISON: 06/24/2017 FINDINGS: biophysical profile score is as follows: movement: 2/2 breathin/2 posture and tone: 2/2 Amniotic fluid volume: 2/2 Total score: 8/8 Single live intrauterine gestation is in cephalic position with a heart rate of 138 beats per minute. RICHARD is 14 cm. Placenta is developing anteriorly and is grade 3 maturational change. IMPRESSION: 1. 02/17 biophysical profile score 2. Amniotic fluid index is 14 cc. Dictated by: Dictated on workstation # [id number]
--- NOTE | 2017-06-30 13:28 | Physician Query-Final Dx ---
JOHN RANDHAWA 06/30/17 1328: Clinic Account Progress/Dx Physician Query: Please give diagnosis Date of Service Jun 29, 2017 at 17:58 VALERIA MARTINEZ DO 07/01/17 0939: Clinic Account Progress/Dx DIAGNOSIS: Diagnosis 35 week IUP Hx of Substance abuse previous Late care Noncompliance Uterine contractions JOHN RANDHAWA Jun 30, 2017 13:28 VALERIA MARTINEZ DO Jul 01, 2017 09:39
== END 2017-06-29 19:29 | disposition home or self-care (01) ==
LOC: WSo 17:58 → LDRP 17:58 → WSo 19:29
PROVIDERS: ATTEND Obstetrics & Gynecology
DX: O47.03 False labor before 37 completed weeks of gestation, third trimester (principal); O34.211 Maternal care for low transverse scar from previous cesarean delivery; O09.33 Supervision of pregnancy with insufficient antenatal care, third trimester; F19.90 Other psychoactive substance use, unspecified, uncomplicated; Z91.19 Patient's noncompliance with other medical treatment and regimen; Z3A.35 35 weeks gestation of pregnancy
CPT/HCPCS: 76819; 80306; 81000; 87088; 99213

== ENCOUNTER 2017-07-06 12:01 | Outpatient (CLI) | payer MEDICAID ==
[~2017-07-06] VITALS: Ht 157.5 cm; Wt 102.5 kg
[~2017-07-06 12:01] MED LIST changes: -HYDR-3812 PO
[2017-07-06 12:44] LABS: BILIRUBIN,URINE NEGATIVE (NEGATIVE); KETONES,URINE NEGATIVE (NEGATIVE); LEUKOCYTE ESTERASE ,URINE 3+ (NEGATIVE); NITRITE,URINE NEGATIVE (NEGATIVE); PH,URINE 7 (5-9); PROTEIN,URINE NEGATIVE (NEGATIVE); UROBILINOGEN,URINE NORMAL (NORMAL)
[2017-07-06 12:55] LABS: TRICHOMONAS,URINE LARGE /HPF
[2017-07-06] MEDS ORDERED: metroNIDAZOLE 500 MG (FLAGYL) TAB PO ONE (13:30)
[2017-07-06] MEDS ORDERED: METR500T PO (13:32)
[2017-07-06] MEDS ORDERED: INFLUENZA TRIvalent 2017-2018 0.5 ML/45 MCG SYR IM ONE (15:15)
--- NOTE | 2017-07-07 14:39 | Physician Query-Final Dx ---
TARA ANAND 07/07/17 1439: Clinic Account Progress/Dx Physician Query: Please give diagnosis Date of Service Jul 06, 2017 at 12:01 VALERIA MARTINEZ DO 07/08/17 1248: Clinic Account Progress/Dx DIAGNOSIS: Diagnosis 36.6 weeks Previous Vaginal irritation and contractions Trichomonas Hx of sub abuse TARA ANAND Jul 07, 2017 14:39 VALERIA MARTINEZ DO Jul 08, 2017 12:48
== END 2017-07-06 14:02 | disposition home or self-care (01) ==
LOC: WSo 12:01 → LDRP 12:01 → WSo 14:02
PROVIDERS: ATTEND Obstetrics & Gynecology
DX: O47.03 False labor before 37 completed weeks of gestation, third trimester (principal); O99.323 Drug use complicating pregnancy, third trimester; F19.11 Other psychoactive substance abuse, in remission; O34.219 Maternal care for unspecified type scar from previous cesarean delivery; O98.313 Other infections with a predominantly sexual mode of transmission complicating pregnancy, third trimester; A59.9 Trichomoniasis, unspecified; Z3A.36 36 weeks gestation of pregnancy
CPT/HCPCS: 80306; 81000; 87088; 99213

== ENCOUNTER 2017-07-14 14:10 | Inpatient (IN) | payer MEDICAID ==
[~2017-07-14] VITALS: Ht 157.5 cm; Wt 104.8 kg
[2017-07-14] VITALS (7 sets, daily range): BP systolic 119–145; BP diastolic 69–88
[2017-07-14] MEDS: LACTATED RINGERS 1,000 ML IV PRN ×2 (14:30→16:15)
[2017-07-14] MEDS ORDERED: ceFAZolin 2 GM/50 ML NS 50 ML ONE (14:33)
[2017-07-14] MEDS ORDERED: METOCLOPRAMIDE INJ 10 MG/2 ML (REGLAN) ONE (14:34)
[2017-07-14] MEDS ORDERED: FAMOTIDINE 20MG/2ML IV (PEPCID) ONE (14:34)
[2017-07-14] MEDS ORDERED: CITRIC ACID/SOB CIT (BICITRA) 30 ML UDC ONE (14:34)
--- OUTSIDE RECORDS SUMMARY | 2017-07-14 14:35 | XMS REPORT | Encounter Summary ---
Author Author [facility] Organization [facility] Address Unknown Phone Unavailable Care Team Providers Care Ship'S Carpenter Name Role Phone PCP Unavailable Encounter Details Date Type Department Care Team Description 04/13/2017 Imaging Cotton Wolfgang Maternal Edds, MD Lyudmila Kelly isoimmunization Medicine during in [address] second trimester, [place] [address] applicable or unspecified [phone] fetus;Rh alloimmunization, maternal, antepartum, second trimester, not applicable or unspecified fetus;Supervision of other high risk pregnancies, second trimester Social History Tobacco Use Types Packs/Day Years Used Date Current Some Day Smoker Cigarettes 0.5 12 Smokeless Tobacco: Never Used Alcohol Use Drinks/Week oz/Week Comments No Sex Assigned at Date Recorded Not on file as of this encounter Plan of Treatment Not on fileas of this encounter Results * US [facility] Ultrasound Evaluation (04/13/2017 8:29 AM) Specimen Performing Laboratory [facility] [address] [place], [place] Narrative Results from a Maternal Medicine study have been reported below. * [employer] users:Click "Open [facility] Report" link under "Linked Documents" section. * [facility] PACS users:View this result from [employer]. * FAX Recipients:Blank page may follow report. Contact [facility] at if illegible or missing page. Procedure Note Tim, Pdf Results In - 04/13/2017 9:19 AM CDT Results from a Maternal Medicine study have been reported below. * [employer] users: Click "Open [facility] Report" link under "Linked Documents" section. * [facility] PACS users: View this result from [employer]. * FAX Recipients: Blank page may follow report. Contact [facility] at [phone] if illegible or missing page. in this encounter Visit Diagnoses Diagnosis [place] isoimmunization during in second trimester, not applicable or unspecified fetus Rh alloimmunization, maternal, antepartum, second trimester, not applicable or unspecified fetus Supervision of other high risk pregnancies, second trimester in this encounter
--- OUTSIDE RECORDS SUMMARY | 2017-07-14 14:35 | XMS REPORT | Encounter Summary ---
Author Author [facility] Organization [facility] Address Unknown Phone Unavailable Care Team Providers Care Post Office Markup Clerk Name Role Phone PCP Unavailable Encounter Details Date Type Department Care Team Description 06/08/2017 [facility] MULTIPLE TESTS Link, On[facility] Scan [place], [place] Social History Tobacco Use Types Packs/Day Years Used Date Current Some Day Smoker Cigarettes 0.5 12 Smokeless Tobacco: Never Used Alcohol Use Drinks/Week oz/Week Comments No Sex Assigned at Date Recorded Not on file as of this encounter Plan of Treatment Not on fileas of this encounter Visit Diagnoses Not on filein this encounter
--- OUTSIDE RECORDS SUMMARY | 2017-07-14 14:35 | XMS REPORT | Clinical Summary ---
Author Author [facility] Address Unknown Phone Unavailable Support Name Relationship Address Phone , Contact,No ECON Unknown Allergies Active Allergy Reactions Severity Noted Date Comments Sulfamethoxazole-Trimetho Swelling High 10/10/2015 prim Sulfacetamide Anaphylaxis High 10/10/2015 Tramadol Swelling High 10/10/2015 Current Medications Prescription Sig. Disp. Refills Start End Date Status Date multivitamin Take 1 tablet by mouth Active ( PLUS) 27-1 MG daily. Indications: TABSIndications: folic acid (FOLVITE) 1 MG Take 1 mg by mouth daily. Active tablet acetaminophen (TYLENOL) Take 650 mg by mouth 2 Active 325 MG tablet (two) times daily as needed for Mild Pain. Active Problems Problem Noted Date Previous delivery affecting , antepartum 03/19/2017 Rh alloimmunization, maternal, antepartum, second trimester, not applicable 02/18/2017 or unspecified fetus Supervision of other high risk pregnancies, second trimester 02/18/2017 [place] isoimmunization during in second trimester, not applicable or unspecified fetus Prior poor obstetrical history, antepartum, second trimester 02/18/2017 Maternal obesity, antepartum, second trimester 02/18/2017 Currently Estimated Date of Delivery Comments Yes 07/28/2017 Based on Ultrasound Resolved Problems Problem Noted Date Resolved Date 23 weeks gestation of 10/11/2015 02/18/2017 Anti-D antibodies present in , unspecified trimester, other fetus 10/10/2015 02/18/2017 [place] isoimmunization during , unspecified trimester, other fetus 02/18/2017 History of delivery, currently 10/10/2015 02/18/2017 , incidental 11/11/2013 11/12/2013 Previous delivery affecting 11/11/2013 11/12/2013 Isoimmunization from blood group incompatibility in 11/11/2013 11/12/2013 Antepartum placental abruption 11/11/2013 11/12/2013 Anti-D antibodies present in 10/06/2013 11/12/2013 , status unknown 08/21/2013 11/12/2013 Lyudmila isoimmunization in 08/04/2013 11/12/2013 Placental abruption, antepartum 08/04/2013 11/12/2013 abnormality suspected, antepartum condition 08/04/2013 11/12/2013 Encounters Date Type Specialty Care Team Description 06/17/2017 [facility] Link, [facility] 06/08/2017 [facility] Link, [facility] 05/05/2017 [facility] Link, [facility] 04/13/2017 Imaging Edds, Olivier Kelly MD [place] isoimmunization during in second trimester, not applicable or unspecified fetus;Rh alloimmunization, maternal, antepartum, second trimester, not applicable or unspecified fetus;Supervision of other high risk pregnancies, second trimester 04/13/2017 Routine Venita Kerns MD [place]: 24w6d from Last 3 Months Immunizations Name Dates Previously Given Next Due DTP ([facility] registry) 02/23/1992, 05/15/1988, 03/23/1987, 01/25/1987, 1986 Hib (Hboc) ([facility] 01/08/1989 registry) Influenza IIV3 PFree 06/08/2013 MMR 02/23/1992, 02/07/1988 OPV ([facility] registry) 05/15/1988, 03/23/1987, 01/25/1987, 1986 Rho(D) Immune Globulin 11/11/2013 Td(adult), adsorbed 04/05/2003 Tdap 11/12/2013, 08/18/2012 Family History Medical History Relation Name Comments No Known Problems Daughter No Known Problems Daughter No Known Problems Daughter No Known Problems Father Heart disease Maternal Grandmother Hypertension Mother No Known Problems Son No Known Problems Son Relation Name Status Comments Daughter Alive Daughter Alive Daughter Alive Father Alive Maternal Grandmother Mother Alive Son Alive Son Alive Social History Tobacco Use Types Packs/Day Years Used Date Current Some Day Smoker Cigarettes 0.5 12 Smokeless Tobacco: Never Used Tobacco Cessation: Ready to Quit: No; Counseling Given: Yes Alcohol Use Drinks/Week oz/Week Comments No Currently Estimated Date of Delivery Comments Yes 07/28/2017 Based on Ultrasound Sex Assigned at Date Recorded Not on file Last Filed Vital Signs Vital Sign Reading Time Taken Blood Pressure 116/68 04/13/2017 8:05 AM CDT Pulse 90 04/13/2017 8:05 AM CDT Temperature 36.8 C (98.2 F) 11/12/2013 7:49 PM CDT Respiratory Rate 18 11/12/2013 7:49 PM CDT Oxygen Saturation 98% 11/12/2013 7:49 PM CDT Inhaled Oxygen - - Concentration Weight 100.2 kg (221 lb) 04/13/2017 8:05 AM CDT Height 161.9 cm (5' 3.75") 02/18/2017 8:52 AM CDT Body Mass Index 38.23 04/13/2017 8:05 AM CDT Plan of Treatment Health Maintenance Due Date Last Done Comments Varicella Vaccines (1 of 09/17/1999 2 - 2 Dose Adolescent Series) CERVICAL CANCER SCREENING 09/17/2007 Influenza Vaccine (#1) 2017 06/08/2013 DTaP,Tdap,and Td Vaccines 11/13/2023 11/12/2013, 08/18/2012, 04/05/2003, (7 - Td) Additional history exists Results * Antibody screen (04/13/2017 8:55 AM) Component Value Ref Range Antibody Screen NEGComment: This patient's plasma previously contained the allo-antibodies anti-D,anti-E, and anti-K. All three antibodies are clinically significant, butnone are currently reacting. Specimen Performing Laboratory Blood [facility] [address] [address] * US [facility] Ultrasound Evaluation (04/13/2017 8:29 AM) Specimen Performing Laboratory [facility] [address] [place], [place] Narrative Results from a Maternal Medicine study have been reported below. * [facility] users:Click "Open [facility] Report" link under "Linked Documents" section. * [facility] PACS users:View this result from [employer]. * FAX Recipients:Blank page may follow report. Contact [facility] at [phone] if illegible or missing page. Procedure Note Tim, Pdf Results In - 04/13/2017 9:19 AM CDT Results from a Maternal Medicine study have been reported below. * [facility] users: Click "Open [facility] Report" link under "Linked Documents" section. * [facility] PACS users: View this result from [employer]. * FAX Recipients: Blank page may follow report. Contact [facility] at [phone] if illegible or missing page. from Last 3 Months
--- OUTSIDE RECORDS SUMMARY | 2017-07-14 14:35 | XMS REPORT | Encounter Summary ---
Author [facility] Organization [facility] Address Unknown Phone Unavailable Care Team Providers Care Brass Molder Name Role Phone PCP Unavailable Reason for Visit * Reason Comments Other D antibody Encounter Details Date Type Department Care Team Description 04/13/2017 Routine Jasper Goss Maternal Venita Kerns MD [place]: 24w6d Medicine [address] [place] [address] [place] [address] Social History Tobacco Use Types Packs/Day Years Used Date Current Some Day Smoker Cigarettes 0.5 12 Smokeless Tobacco: Never Used Alcohol Use Drinks/Week oz/Week Comments No Sex Assigned at Date Recorded Not on file as of this encounter Last Filed Vital Signs Vital Sign Reading Time Taken Blood Pressure 116/68 04/13/2017 8:05 AM CDT Pulse 90 04/13/2017 8:05 AM CDT Temperature - - Respiratory Rate - - Oxygen Saturation - - Inhaled Oxygen - - Concentration Weight 100.2 kg (221 lb) 04/13/2017 8:05 AM CDT Height - - Body Mass Index 38.23 04/13/2017 8:05 AM CDT in this encounter Progress Notes * Venita Kerns MD - 04/13/2017 8:45 AM CDT Formatting of this note may be different from the original. [facility] [address] [facility] [address] 04/13/2017 Patient: Beryl Elizabeth : 1985 Date: 04/13/2017 31-year-old 8, para 5025 at 24-6/7 weeks with an EDC of 07/28/17 based on a 17 week ultrasound. 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 The patient is currently incarcerated. The most recent anti-D titer was 1 on 02/04/17. Anti-[place] was not detected. The patient reports that she had a blood transfusion in 2003. She reports that she did not receive RhoGAM with her in 2013. The patient reports that her 2 previous pregnancies were affected; however, neither had hemolytic disease of the fetus/ . Her partner's antigen status is unknown. The patient has a history of 2 prior pregnancies complicated by placental abruption. Another was complicated by IUGR. Records reviewed. The patient has had 5 prior deliveries. Three of the deliveries were low-transverse; however, the type of uterine incision was not documented on 2 of the deliveries. Records reviewed. The patient reports a history of depression and anxiety. She reports that her anxiety is worsening with . The patient is not on any psychiatric medications currently. Quad screen was low risk for Down syndrome, trisomy 18 and open neural tube defects. Today, the patient denies any obstetric complaints and reports good movement. The patient reports that her antibody titers have not been followed at the skilled nursing. We have not received results from antibody titers since January. Visit Vitals BP 116/68 Pulse 90 Wt 221 lb (100.2 kg) LMP 10/10/2016 BMI 38.23 kg/m2 ULTRASOUND: See separate report. Estimated weight and RICHARD appropriate for gestational age. I reviewed the ultrasound findings with the patient. Reviewed the maternal alloimmunization. This patient may have been sensitized during a previous or with her blood transfusions in the past. Anti-D and Anti-[place] alloimmunization have both been associated with hemolytic disease of the fetus/ (HDFN). The risk to the fetus is dependent upon whether the fetus is expressing [place] or D- antigen on its RBCs. The patient is certain of paternity. Paternal antigen testing planned when the patient can come with her . Antibody titers will need to be followed every 4 weeks throughout gestation. The critical titer for anti-D is 16. The critical titer for anti-Lyudmila is 8. If the anti-D antibody titer is greater than or equal to 16 or the anti-[place] titer is greater than or equal to 8, serial MCA Dopplers will need to be performed to evaluate for significant anemia. If significant anemia develops remote from term, cordocentesis with intrauterine transfusions can be performed. Maternal alloimmunization will worsen with each subsequent affected . Patients who have formed one alloantibody are at significant risk for development of other alloantibodies. The recurrence risk for placental abruption is approximately 5-15%. Unfortunately, there is no way to predict or prevent another abruption. Patients with a history of placental abruption also appear to be at increased risk for preeclampsia and IUGR. Furthermore, a history of poor growth in a prior further increases the risk for IUGR. Will plan to follow serial growth scans. RECOMMENDATIONS: 1. Interval growth with MFM in 4 weeks. 2. Antibody titers drawn today. We will follow antibody titers every 4 weeks. 3. This patient is not a candidate for RhoGAM. Approximately 15 minutes were spent with the patient today and 10 minutes of that time was spent in counseling. All questions were answered and the patient verbalized her understanding of our discussion. Venita Kerns MD Specialist, Maternal- Medicine Electronically Signed 04/13/2017 9:09 AM * Alyssa Bull, COMP FIELD CASE MANAGER - 04/13/2017 8:45 AM CDT Follow up sonogram for D antibody. Contractions/Cramping cramping off and on . Bleeding no. Vaginal discharge/drainage no. Concerns no. in this encounter Plan of Treatment Not on fileas of this encounter Results * Antibody screen (04/13/2017 8:55 AM) Component Value Ref Range Antibody Screen NEGComment: This patient's plasma previously contained the allo-antibodies anti-D,anti-E, and anti-K. All three antibodies are clinically significant, butnone are currently reacting. Specimen Performing Laboratory Blood [facility] [address] [place] [address] * US [facility] Ultrasound Evaluation (04/13/2017 8:29 AM) Specimen Performing Laboratory [facility] [address] [place], [place] Narrative Results from a Maternal Medicine study have been reported below. * [employer] users:Click "Open [facility] Report" link under "Linked Documents" section. * [facility] PACS users:View this result from [employer]. * FAX Recipients:Blank page may follow report. Contact [facility] at if illegible or missing page. Procedure Note Tim, Pdf Results In - 04/13/2017 9:19 AM CDT Results from a Maternal Medicine study have been reported below. * [employer] users: Click "Open [facility] Report" link under "Linked Documents" section. * [facility] PACS users: View this result from [employer]. * FAX Recipients: Blank page may follow report. Contact [facility] at [phone] if illegible or missing page. in this encounter Visit Diagnoses Diagnosis Prior poor obstetrical history, antepartum, second trimester - Primary [place] isoimmunization during in second trimester, not applicable or unspecified fetus Rh alloimmunization, maternal, antepartum, second trimester, not applicable or unspecified fetus Supervision of other high risk pregnancies, second trimester in this encounter
--- OUTSIDE RECORDS SUMMARY | 2017-07-14 14:35 | XMS REPORT | Clinical Summary ---
Author Author [facility] Organization [facility] Address Unknown Phone Unavailable Care Team Providers Care Industrial Electrical Technician Name Role Phone PCP Unavailable Source Comments Some departments are not documenting in the electronic medical record. If you do not see the information that you expected, contact Release of Information in the Health Information Management department at [phone] for further assistance in locating additional records.[facility] Allergies Active Allergy Reactions Severity Noted [...] Taken Blood Pressure 104/59 09/03/2015 1:49 PM BUILDING ANALYST/SUPERVISOR Pulse 87 09/03/2015 1:49 PM BUILDING ANALYST/SUPERVISOR Temperature - - Respiratory Rate - - Oxygen Saturation - - Inhaled Oxygen - - Concentration Weight 82.1 kg (181 lb) 09/03/2015 1:49 PM BUILDING ANALYST/SUPERVISOR Height 157.5 cm (5' 2") 09/03/2015 1:49 PM BUILDING ANALYST/SUPERVISOR Body Mass Index 33.11 09/03/2015 1:49 PM BUILDING ANALYST/SUPERVISOR Plan of Treatment Health Maintenance Due Date Last Done Comments PHYSICAL (COMPREHENSIVE) 1993 EXAM PERTUSSIS VACCINE 1997 TETANUS VACCINE 09/17/2003 CERVICAL CANCER SCREENING 2016 INFLUENZA VACCINE 02/10/2017 Results Not on filefrom Last 3 Months
--- OUTSIDE RECORDS SUMMARY | 2017-07-14 14:35 | XMS REPORT | Encounter Summary ---
Author Author [facility] Organization [facility] Address Unknown Phone Unavailable Care Team Providers Care Can Tester Name Role Phone PCP Unavailable Encounter Details Date Type Department Care Team Description 05/05/2017 [facility], [facility] [place], [place] Social History Tobacco Use Types Packs/Day Years Used Date Current Some Day Smoker Cigarettes 0.5 12 Smokeless Tobacco: Never Used Alcohol Use Drinks/Week oz/Week Comments No Sex Assigned at Date Recorded Not on file as of this encounter Plan of Treatment Not on fileas of this encounter Visit Diagnoses Not on filein this encounter
--- OUTSIDE RECORDS SUMMARY | 2017-07-14 14:35 | XMS REPORT | Encounter Summary ---
Author Author [facility] Organization [facility] Address Unknown Phone Unavailable Care Team Providers Care Mannequin Mounter Name Role Phone PCP Unavailable Encounter Details Date Type Department Care Team Description 06/17/2017 [facility] Link, [facility] [place], [place] Social History Tobacco Use Types Packs/Day Years Used Date Current Some Day Smoker Cigarettes 0.5 12 Smokeless Tobacco: Never Used Alcohol Use Drinks/Week oz/Week Comments No Sex Assigned at Date Recorded Not on file as of this encounter Plan of Treatment Not on fileas of this encounter Visit Diagnoses Not on filein this encounter
[2017-07-14] MEDS ORDERED: LACTATED RINGERS 1,000 ML IV PRN (14:37)
--- OUTSIDE RECORDS SUMMARY | 2017-07-14 14:42 | XMS REPORT | Continuity of Care Document ---
Author Author [facility] Address Unknown Phone Unavailable Allergies Active Description Code Type Severity Reaction Onset Reported/Identified Relationship to Patient Clinical Status Yes No Known Drug Allergies [id number] Drug Allergy Mild N/A 01/17/2009 Yes sulfamethoxazole [id number] Drug Allergy Unknown N/A 09/17/2014 Yes tramadol [id number] Drug Allergy Unknown N/A 09/17/2014 Yes trimethoprim [id number] Drug Allergy Unknown N/A 09/17/2014 Yes SULFACETAMIDE 5563 DRUG INGREDI N/A Other 10/10/2015 10/10/2015 Yes SULFACETAMIDE 87138 DRUG INGREDI High Anaphylaxis 10/10/2015 10/10/2015 Yes SULFAMETHOXAZOLE-TRIMETHOPRIM 73339 DRUG INGREDI High Swelling 10/10/2015 Yes SULFAMETHOXAZOLE-TRIMETHOPRIM 15880 DRUG INGREDI Med Swelling 10/10/2015 Yes TRAMADOL 46422 DRUG INGREDI High Swelling 10/10/2015 10/10/2015 Yes TRAMADOL 51171 DRUG INGREDI Med Swelling 10/10/2015 10/10/2015 Medications There is no data. Problems Date Dx Coded Attending Type Code Diagnosis Diagnosed By 06/04/2007 Ot 276.51 06/04/2007 Ot 643.23 06/09/2007 Ot V07.2 07/27/2007 Ot 599.0 07/27/2007 Ot 646.63 07/27/2007 Ot 648.93 07/27/2007 Ot 780.4 08/06/2007 Ot 644.03 01/17/2009 Ot 131.9 01/17/2009 Ot 641.93 01/17/2009 Ot 647.83 01/21/2009 Ot 616.0 01/21/2009 Ot 641.93 01/21/2009 Ot 646.63 09/21/2009 SHARRON HEAD APRN 465.9 UPPER RESPIRATORY INFECTION 09/21/2009 KABA DO, GHADA K 465.9 UPPER RESPIRATORY INFECTION 10/21/2010 Ot 558.9 NONINF GASTROENTERIT NEC 10/21/2010 Ot 599.0 URIN TRACT INFECTION NOS 10/21/2010 Ot 787.02 NAUSEA ALONE 10/22/2010 Ot 599.0 URIN TRACT INFECTION NOS 10/22/2010 Ot 787.02 NAUSEA ALONE 10/22/2010 Ot 789.00 ABDOMINAL PAIN, UNSPECIFIED SITE 03/24/2011 Ot 388.70 OTALGIA NOS 03/24/2011 Ot 780.60 FEVER, UNSPECIFIED 05/26/2011 Ot 490 BRONCHITIS NOS 05/26/2011 Ot 786.2 COUGH 12/10/2011 Ot 922.31 BACK CONTUSION 12/10/2011 Ot 959.19 OTH INJURY OF OTHER SITES OF TRUNK 12/10/2011 Ot E000.8 OTHER EXTERNAL CAUSE STATUS 12/10/2011 Ot E849.0 ACCIDENT IN HOME 12/10/2011 Ot E888.9 FALL NOS 03/16/2012 Ot 131.9 TRICHOMONIASIS NOS 03/16/2012 Ot 599.0 URIN TRACT INFECTION NOS 03/16/2012 Ot 643.93 VOMIT OF PG NOS-ANTEPART 03/16/2012 Ot 646.63 INFECTION -ANTEPARTUM 03/16/2012 Ot 647.83 INFECT DIS NEC-ANTEPART 08/18/2012 Ot 590.80 PYELONEPHRITIS NOS 08/18/2012 Ot 646.63 INFECTION -ANTEPARTUM 08/18/2012 Ot V06.1 DIPHTHERIA- TETANUS-PERTUSSIS, COMBINED [ 09/17/2012 Ot 276.51 DEHYDRATION 09/17/2012 Ot 648.93 OTH CURR COND-ANTEPARTUM 09/17/2012 Ot 787.01 NAUSEA WITH VOMITING 09/17/2012 Ot 787.91 DIARRHEA 09/17/2012 Ot V07.2 PROPHYLACT IMMUNOTHERAPY 10/09/2012 Ot 599.0 URIN TRACT INFECTION NOS 10/09/2012 Ot 644.03 THRT LE LABOR-ANTEPART 10/09/2012 Ot 646.63 INFECTION -ANTEPARTUM 10/14/2012 Ot 648.73 BONE DISORDER-ANTEPARTUM 10/14/2012 Ot 724.5 BACKACHE NOS 10/26/2012 Ot 644.03 THRT LE LABOR-ANTEPART 11/05/2012 GILA GREWAL DO Ot 305.20 CANNABIS ABUSE-UNSPEC 11/05/2012 CARMINA ALANIS GILA C Ot 648.41 MENTAL DISORDER-DELIVER 11/05/2012 CARMINA ALANIS GILA C Ot 654.21 PREV DELIVRY W/ OR W/O MENT ANT 11/05/2012 GREWAL DOGILA Ot V27.0 DELIVER-SINGLE LIVEBORN 04/26/2013 SHARRON HEAD APRN 789.07 ABDOMINAL PAIN GENERALIZED 04/26/2013 SHARRON HEAD APRN V72.42 TEST POSITIVE RESULT 04/26/2013 GHADA KABA DO 789.07 ABDOMINAL PAIN GENERALIZED 04/26/2013 GHADA KABA DO V72.42 TEST POSITIVE RESULT 06/08/2013 GHADA KABA DO 654.20 PREVIOUS 06/08/2013 GHADA KABA DO 656.13 RH NEGATIVE 06/08/2013 GHADA KABA DO V04.81 FLU SHOT 06/08/2013 GHADA KABA DO V23.7 , HIGH RISK W/ INSUFFICIENT CARE 06/08/2013 GHADA KABA DO V74.5 STD SCREEN 06/08/2013 GHADA KABA DO V76.2 CERVICAL CANCER SCREENING (PAP SMEAR) 11/02/2013 V Other 11/02/2013 V 641.23 Premature separation of placenta, antepartum 11/02/2013 V 655.90 Unspecified abnormality affecting management of mother, unspecified as to episode of care 11/02/2013 V 656.20 Isoimmunization from other and unspecified blood-group incompatibility, unspecified as to episode of care in 11/21/2013 V 656.20 Isoimmunization from other and unspecified blood-group incompatibility, unspecified as to episode of care in 11/21/2013 V 656.23 Isoimmunization from other and unspecified blood-group incompatibility, affecting management of mother, antepartum 11/21/2013 V 656.20 Isoimmunization from other and unspecified blood-group incompatibility, unspecified as to episode of care in 06/23/2014 XAVI GREGORY, MINE Berger Ot 574.10 CHOLELITH W CHOLECYS NEC 07/10/2014 GILA GREWAL DO Ot 574.20 09/17/2014 Ot 305.60 COCAINE ABUSE-UNSPEC 09/17/2014 Ot 558.9 NONINF GASTROENTERIT NEC 09/17/2014 Ot 787.03 VOMITING ALONE 02/17/2015 Ot 654.23 02/17/2015 Ot V72.63 02/17/2015 YOGI STILES APRN Ot V28.89 02/17/2015 GILA GREWAL DO Ot 574.20 02/17/2015 SHARRON MELO DO Ot 462 ACUTE PHARYNGITIS 02/17/2015 SHARRON MELO DO Ot 466.0 ACUTE BRONCHITIS 02/17/2015 SHARRON MELO DO Ot 473.9 CHRONIC SINUSITIS NOS 05/14/2015 SAHARA GREGORY, DESHAUN Fernandez Ot M51.36 05/28/2015 SAHARA GREGORY, DESHAUN Fernandez Ot M51.36 06/23/2015 DIONTE GREGORY, MICHAELA Baird Ot 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 06/23/2015 MICHAELA RAPP MD Ot F17.210 NICOTINE DEPENDENCE, CIGARETTES, UNCOMPL 06/23/2015 MICHAELA RAPP MD Ot O21.1 HYPEREMESIS GRAVIDARUM WITH METABOLIC DI 06/23/2015 MICHAELA RAPP MD Ot O98.311 OTH INFECT W SEXL MODE OF TRANSMISS COMP 06/23/2015 MICHAELA RAPP MD Ot Z3A.09 9 WEEKS GESTATION OF 07/18/2015 SIMON CROOK DO Ot F11.10 OPIOID ABUSE, UNCOMPLICATED 07/18/2015 SIMON CROOK DO Ot F15.10 OTHER STIMULANT ABUSE, UNCOMPLICATED 07/18/2015 SIMON CROOK DO Ot F17.210 NICOTINE DEPENDENCE, CIGARETTES, UNCOMPL 07/18/2015 SIMON CROOK DO Ot O21.0 MILD HYPEREMESIS GRAVIDARUM 07/18/2015 SIMON CROOK DO Ot O23.41 UNSP INFCT OF URINARY TRACT IN 07/18/2015 SIMON CROOK DO Ot O99.321 DRUG USE COMPLICATING , FIRST T 07/18/2015 SIMON CROOK DO Ot O99.331 SMOKING (TOBACCO) COMPLICATING 07/18/2015 SIMON CROOK DO Ot Z3A.10 10 WEEKS GESTATION OF 07/22/2015 GILA GREWAL DO Ot F11.10 OPIOID ABUSE, UNCOMPLICATED 07/22/2015 GILA GREWAL DO Ot F15.10 OTHER STIMULANT ABUSE, UNCOMPLICATED 07/22/2015 GILA GREWAL DO Ot F17.210 NICOTINE DEPENDENCE, CIGARETTES, UNCOMPL 07/22/2015 GILA GREWAL DO Ot N12 TUBULO-INTERSTITIAL NEPHRITIS, NOT SPCF 07/22/2015 GILA GREWAL DO Ot O23.41 UNSP INFCT OF URINARY TRACT IN 07/22/2015 GILA GREWAL DO Ot O99.321 DRUG USE COMPLICATING , FIRST T 07/22/2015 GILA GREWAL DO Ot O99.331 SMOKING (TOBACCO) COMPLICATING 07/22/2015 GILA GREWAL DO Ot O99.89 OTH DISEASES AND CONDITIONS COMPL PREG/C 07/22/2015 GILA GREWAL DO Ot Z3A.12 12 WEEKS GESTATION OF 07/25/2015 GILA GREWAL DO Ot 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 07/25/2015 GILA GREWAL DO Ot B37.3 CANDIDIASIS OF VULVA AND VAGINA 07/25/2015 GILA GREWAL DO Ot O23.41 UNSP INFCT OF URINARY TRACT IN 07/25/2015 GILA GREWAL DO Ot O98.311 OTH INFECT W SEXL MODE OF TRANSMISS COMP 07/25/2015 GILA GREWAL DO Ot Z3A.12 12 WEEKS GESTATION OF 08/18/2015 MOO GREGORY, ANGELI Fowler Ot F17.210 NICOTINE DEPENDENCE, CIGARETTES, UNCOMPL 08/18/2015 MOO GREGORY, ANGELI Fowler Ot O26.891 OTH RELATED CONDITIONS, FIRST 08/18/2015 ANGELI CORTÉS MD Ot R10.2 PELVIC AND PERINEAL PAIN 08/18/2015 ANGELI CORTÉS MD Ot Z3A.16 16 WEEKS GESTATION OF 08/30/2015 MARVIN HANSON MD Ot O21.0 MILD HYPEREMESIS GRAVIDARUM 08/30/2015 MARVIN HANSON MD Ot Z3A.19 19 WEEKS GESTATION OF 12/02/2015 DEMARCO GREGORY, TYRONE Arriaga Ot O23.43 UNSP INFCT OF URINARY TRACT IN 12/02/2015 TYRONE PAL MD Ot Z3A.32 32 WEEKS GESTATION OF 12/24/2015 TYRONE PAL MD Ot O23.43 UNSP INFCT OF URINARY TRACT IN 12/24/2015 TYRONE PAL MD Ot Z3A.32 32 WEEKS GESTATION OF 12/26/2015 TYRONE PAL MD Ot O23.43 UNSP INFCT OF URINARY TRACT IN 12/26/2015 TYRONE PAL MD Ot Z3A.32 32 WEEKS GESTATION OF 12/31/2015 KEO CORREIA MD Ot O99.89 OTH DISEASES AND CONDITIONS COMPL PREG/C 12/31/2015 KEO CORREIA MD Ot Z3A.36 36 WEEKS GESTATION OF 12/31/2015 KEO CORREIA MD Ot Z53.21 PROC/TRTMT NOT CRD OUT D/T PT LV BEF SEE 12/31/2015 MICHAEL CADET MD Ot O47.9 FALSE LABOR, UNSPECIFIED 01/02/2016 KEO CORREIA MD A Ot O99.89 OTH DISEASES AND CONDITIONS COMPL PREG/C 01/02/2016 KEO CORREIA MD A Ot Z3A.36 36 WEEKS GESTATION OF 01/02/2016 KEO CORREIA MD Ot Z53.21 PROC/TRTMT NOT CRD OUT D/T PT LV BEF SEE 01/02/2016 MICHAEL CADET MD Ot O47.9 FALSE LABOR, UNSPECIFIED 01/02/2016 MICHAEL CADET MD Ot O47.9 FALSE LABOR, UNSPECIFIED 01/06/2016 KEO CORREIA MD A Ot O99.89 OTH DISEASES AND CONDITIONS COMPL PREG/C 01/06/2016 KEO CORREIA MD A Ot Z3A.36 36 WEEKS GESTATION OF 01/06/2016 KEO CORREIA MD Ot Z53.21 PROC/TRTMT NOT CRD OUT D/T PT LV BEF SEE 01/13/2016 GILA GREWAL DO Ot O36.1930 MATERNAL CARE FOR OTH ISOIMMUNIZATION, T 01/13/2016 GILA GREWAL DO Ot O36.5930 MATERN CARE FOR OTH OR SUSP POOR FETL GR 01/13/2016 GILA GREWAL DO Ot Z3A.37 37 WEEKS GESTATION OF 01/16/2016 KEO CORREIA MD Ot O99.89 OTH DISEASES AND CONDITIONS COMPL PREG/C 01/16/2016 KEO CORREIA MD Ot Z3A.36 36 WEEKS GESTATION OF 01/16/2016 KEO CORREIA MD Ot Z53.21 PROC/TRTMT NOT CRD OUT D/T PT LV BEF SEE 01/16/2016 GILA GREWAL DO Ot O36.1930 MATERNAL CARE FOR OTH ISOIMMUNIZATION, T 01/16/2016 GILA GREWAL DO Ot O36.5930 MATERN CARE FOR OTH OR SUSP POOR FETL GR 01/16/2016 GIAL GREWAL DO Ot Z3A.37 37 WEEKS GESTATION OF 01/16/2016 GILA GREWAL DO Ot O36.1930 MATERNAL CARE FOR OTH ISOIMMUNIZATION, T 01/16/2016 GILA GREWAL DO Ot O36.5930 MATERN CARE FOR OTH OR SUSP POOR FETL GR 01/16/2016 GILA GREWAL DO Ot Z3A.37 37 WEEKS GESTATION OF 01/16/2016 Ot 654.23 PREV DELIVERY, ANTEPARTUM COND 01/16/2016 Ot V72.63 PRE- PROCEDURAL LABORATORY EXAMINATION 01/16/2016 YOGI STILES APRN Ot V28.89 OTHER SPECIFIED SCREENING 01/16/2016 GILA GREWAL DO Ot 574.20 CHOLELITHIASIS NOS 01/16/2016 SAHARA GREGORY, DESHAUN Fernandez Ot M51.36 OTHER INTERVERTEBRAL DISC DEGENERATION, 01/16/2016 KEO CORREIA MD Ot O99.89 OTH DISEASES AND CONDITIONS COMPL PREG/C 01/16/2016 KEO CORREIA MD Ot Z3A.36 36 WEEKS GESTATION OF 01/16/2016 KEO CORREIA MD Ot Z53.21 PROC/TRTMT NOT CRD OUT D/T PT LV BEF SEE 01/16/2016 GILA GREWAL DO Ot O36.1930 MATERNAL CARE FOR OTH ISOIMMUNIZATION, T 01/16/2016 GILA GREWAL DO Ot O36.5930 MATERN CARE FOR OTH OR SUSP POOR FETL GR 01/16/2016 GILA GREWAL DO Ot Z01.812 ENCOUNTER FOR PREPROCEDURAL LABORATORY E 01/16/2016 GILA GREWAL DO Ot Z11.2 ENCOUNTER FOR SCREENING FOR OTHER BACTER 01/16/2016 GILA GREWAL DO Ot Z3A.37 37 WEEKS GESTATION OF 01/17/2016 GILA GREWAL DO Ot O36.1930 MATERNAL CARE FOR OTH ISOIMMUNIZATION, T 01/17/2016 GILA GREWAL DO Ot O36.5930 MATERN CARE FOR OTH OR SUSP POOR FETL GR 01/17/2016 GILA GREWAL DO Ot Z01.812 ENCOUNTER FOR PREPROCEDURAL LABORATORY E 01/17/2016 GILA GREWAL DO Ot Z11.2 ENCOUNTER FOR SCREENING FOR OTHER BACTER 01/17/2016 GILA GREWAL DO Ot Z3A.37 37 WEEKS GESTATION OF 01/21/2016 GILA GREWAL DO Ot B96.20 UNSP ESCHERICHIA COLI THE CAUSE OF DI 01/21/2016 GILA GREWAL DO Ot D62 ACUTE POSTHEMORRHAGIC ANEMIA 01/21/2016 GILA GREWAL DO Ot F12.10 CANNABIS ABUSE, UNCOMPLICATED 01/21/2016 GILA GREWAL DO Ot F17.210 NICOTINE DEPENDENCE, CIGARETTES, UNCOMPL 01/21/2016 GILA GREWAL DO Ot F32.9 MAJOR DEPRESSIVE DISORDER, SINGLE EPISOD 01/21/2016 GILA GREWAL DO Ot O09.43 SUPRVSN OF W GRAND MULTIPARITY 01/21/2016 GILA GREWAL DO Ot O23.43 UNSP INFCT OF URINARY TRACT IN 01/21/2016 GILA GREWAL DO Ot O34.21 MATERNAL CARE FOR SCAR FROM PREVIOUS RIOS 01/21/2016 GILA GREWAL DO Ot O36.0130 MATERNAL CARE FOR ANTI-D ANTIBODIES, THI 01/21/2016 GILA GREWAL DO Ot O36.1930 MATERNAL CARE FOR OTH ISOIMMUNIZATION, T 01/21/2016 GILA GREWAL DO Ot O36.5930 MATERN CARE FOR OTH OR SUSP POOR FETL GR 01/21/2016 GILA GREWAL DO Ot O90.81 ANEMIA OF THE PUERPERIUM 01/21/2016 GILA GREWAL DO Ot O99.323 DRUG USE COMPLICATING , THIRD T 01/21/2016 GILA GREWAL DO Ot O99.333 SMOKING (TOBACCO) COMPLICATING 01/21/2016 GILA GREWAL DO Ot O99.343 OTH MENTAL DISORDERS COMPLICATING PREGNA 01/21/2016 IGLA GREWAL DO Ot R51 HEADACHE 01/21/2016 GILA GREWAL DO Ot Z23 ENCOUNTER FOR IMMUNIZATION 01/21/2016 GILA GREWAL DO Ot Z37.0 SINGLE LIVE 01/21/2016 GILA GREWAL DO Ot Z3A.38 38 WEEKS GESTATION OF 01/27/2016 Ot 654.23 PREV DELIVERY, ANTEPARTUM COND 01/27/2016 Ot V72.63 PRE- PROCEDURAL LABORATORY EXAMINATION 01/27/2016 YOGI STILES APRN Ot V28.89 OTHER SPECIFIED SCREENING 01/27/2016 GILA GREWAL DO Ot 574.20 CHOLELITHIASIS NOS 01/27/2016 SAHARA GREGORY, DESHAUN Fernandez Ot M51.36 OTHER INTERVERTEBRAL DISC DEGENERATION, 01/27/2016 MASOOD GREGORY, KEO Kelly Ot O99.89 OTH DISEASES AND CONDITIONS COMPL PREG/C 01/27/2016 KEO CORREIA MD Ot Z3A.36 36 WEEKS GESTATION OF 01/27/2016 KEO CORREIA MD Ot Z53.21 PROC/TRTMT NOT CRD OUT D/T PT LV BEF SEE 02/11/2016 Ot 654.23 PREV DELIVERY, ANTEPARTUM COND 02/11/2016 Ot V72.63 PRE- PROCEDURAL LABORATORY EXAMINATION 02/11/2016 YOGI STILES APRN Ot V28.89 OTHER SPECIFIED SCREENING 02/11/2016 GREWAL GILA ALANIS Ot 574.20 CHOLELITHIASIS NOS 02/11/2016 DESHAUN SHOEMAKER MD Ot M51.36 OTHER INTERVERTEBRAL DISC DEGENERATION, 04/09/2016 Ot 654.23 PREV DELIVERY, ANTEPARTUM COND 04/09/2016 Ot V72.63 PRE- PROCEDURAL LABORATORY EXAMINATION 04/09/2016 YOGI STILES APRN Ot V28.89 OTHER SPECIFIED SCREENING 04/09/2016 CARMINA ALANIS GILA Brayden Ot 574.20 CHOLELITHIASIS NOS 04/09/2016 DESHAUN SHOEMAKER MD Ot M51.36 OTHER INTERVERTEBRAL DISC DEGENERATION, 04/09/2016 STEPHANIE SIMMONS Ot J06.9 ACUTE UPPER RESPIRATORY INFECTION, UNSPE 04/09/2016 STEPHANIE SIMMONS Ot R05 COUGH 04/10/2016 STEPHANIE SIMMONS Ot J06.9 ACUTE UPPER RESPIRATORY INFECTION, UNSPE 04/10/2016 STEPHANIE SIMMONS Ot R05 COUGH 04/12/2016 STEPHANIE SIMMONS Ot J06.9 ACUTE UPPER RESPIRATORY INFECTION, UNSPE 04/12/2016 STEPHANIE SIMMONS Ot R05 COUGH 04/15/2016 Ot 654.23 PREV DELIVERY, ANTEPARTUM COND 04/15/2016 Ot V72.63 PRE- PROCEDURAL LABORATORY EXAMINATION 04/15/2016 YOGI STILES APRN Ot V28.89 OTHER SPECIFIED SCREENING 04/15/2016 GILA GREWAL DO Ot 574.20 CHOLELITHIASIS NOS 04/15/2016 DESHAUN SHOEMAKER MD Ot M51.36 OTHER INTERVERTEBRAL DISC DEGENERATION, 04/15/2016 STEPHANIE SIMMONS Ot J06.9 ACUTE UPPER RESPIRATORY INFECTION, UNSPE 04/15/2016 STEPHANIE SIMMONS Ot R05 COUGH 06/02/2016 MICHAELA RAPP MD Ot F17.210 NICOTINE DEPENDENCE, CIGARETTES, UNCOMPL 06/02/2016 MICHAELA RAPP MD Ot M54.5 LOW BACK PAIN 06/02/2016 MICHAELA RAPP MD Ot N39.0 URINARY TRACT INFECTION, SITE NOT SPECIF 06/02/2016 MICHAELA RAPP MD Ot R11.2 NAUSEA WITH VOMITING, UNSPECIFIED 06/17/2016 SHARRON MELO DO Ot J02.0 STREPTOCOCCAL PHARYNGITIS 06/17/2016 SHARRON MELO DO Ot J02.9 ACUTE PHARYNGITIS, UNSPECIFIED 06/17/2016 SHARRON MELO DO Ot R50.9 FEVER, UNSPECIFIED 06/17/2016 SHARRON MELO DO Ot J02.0 STREPTOCOCCAL PHARYNGITIS 06/17/2016 SHARRON MELO DO Ot J02.9 ACUTE PHARYNGITIS, UNSPECIFIED 06/17/2016 SHARRON MELO DO Ot R50.9 FEVER, UNSPECIFIED 07/10/2016 DUSTIN, ALYSE CULTURE MANAGER Ot F17.210 NICOTINE DEPENDENCE, CIGARETTES, UNCOMPL 07/10/2016 DUSTIN, ALYSE CULTURE MANAGER Ot N39.0 URINARY TRACT INFECTION, SITE NOT SPECIF 07/10/2016 DUSTIN, ALYSE CULTURE MANAGER Ot R10.32 LEFT LOWER QUADRANT PAIN 07/11/2016 DUSTIN, ALYSE CULTURE MANAGER Ot F17.210 NICOTINE DEPENDENCE, CIGARETTES, UNCOMPL 07/11/2016 DUSTIN, ALYSE CULTURE MANAGER Ot N39.0 URINARY TRACT INFECTION, SITE NOT SPECIF 07/11/2016 DUSTIN, ALYSE CULTURE MANAGER Ot R10.32 LEFT LOWER QUADRANT PAIN 11/25/2016 ARMAAN DO, SIMON K Ot F12.90 CANNABIS USE, UNSPECIFIED, UNCOMPLICATED 11/25/2016 ARMAAN DO SIMON K Ot 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, HYPNOTIC, OR ANXIOLYTIC USE, U 11/25/2016 ARMAAN DO SIMON K Ot F15.90 OTHER STIMULANT USE, UNSPECIFIED, UNCOMP 11/25/2016 ARMAAN DO SIMON K Ot F17.210 NICOTINE DEPENDENCE, CIGARETTES, UNCOMPL 11/25/2016 ARMAAN DO, SIMON K Ot O23.41 UNSP INFCT OF URINARY TRACT IN 11/25/2016 ARMAAN DO SIMON K Ot O99.321 DRUG USE COMPLICATING , FIRST T 11/25/2016 ARMAAN ALANIS SIMON K Ot O99.331 SMOKING (TOBACCO) COMPLICATING 11/25/2016 PATRICE CROOK DOA K Ot R06.4 HYPERVENTILATION 11/25/2016 PATRICE CROOK DOA K Ot Z3A.01 LESS THAN 8 WEEKS GESTATION OF 11/26/2016 ARMAAN DO SIMON K Ot F12.90 CANNABIS USE, UNSPECIFIED, UNCOMPLICATED 11/26/2016 ARMAAN DO SIMON K Ot 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, HYPNOTIC, OR ANXIOLYTIC USE, U 11/26/2016 ARMAAN DO SIMON K Ot F15.90 OTHER STIMULANT USE, UNSPECIFIED, UNCOMP 11/26/2016 ARMAAN DO SIMON K Ot F17.210 NICOTINE DEPENDENCE, CIGARETTES, UNCOMPL 11/26/2016 ARMAAN DO SIMON K Ot O23.41 UNSP INFCT OF URINARY TRACT IN 11/26/2016 ARMAAN DO SIMON K Ot O99.321 DRUG USE COMPLICATING , FIRST T 11/26/2016 SIMON CROOK DO Ot O99.331 SMOKING (TOBACCO) COMPLICATING 11/26/2016 SIMON CROOK DO Ot R06.4 HYPERVENTILATION 11/26/2016 SIMON CROOK DO Ot Z3A.01 LESS THAN 8 WEEKS GESTATION OF 12/25/2016 Ot 654.23 PREV DELIVERY, ANTEPARTUM COND 12/25/2016 Ot V72.63 PRE- PROCEDURAL LABORATORY EXAMINATION 12/25/2016 YOGI STILES APRN Ot V28.89 OTHER SPECIFIED SCREENING 12/25/2016 GILA GREWAL DO Ot 574.20 CHOLELITHIASIS NOS 12/25/2016 SAHARA GREGORY, DESHAUN Fernandez Ot M51.36 OTHER INTERVERTEBRAL DISC DEGENERATION, 04/09/2017 Ot V15.89 04/09/2017 Ot 654.23 04/09/2017 Ot V72.83 04/09/2017 Ot V74.8 04/09/2017 Ot 654.23 PREV DELIVERY, ANTEPARTUM COND 04/09/2017 Ot V72.63 PRE- PROCEDURAL LABORATORY EXAMINATION 04/09/2017 YOGI STILES APRN Ot V28.89 OTHER SPECIFIED SCREENING 04/09/2017 GILA GREWAL DO Ot 574.20 CHOLELITHIASIS NOS 04/09/2017 SAHARA GREGORY, DESHAUN R Ot M51.36 OTHER INTERVERTEBRAL DISC DEGENERATION, 04/09/2017 Ot 654.23 PREV DELIVERY, ANTEPARTUM COND 04/09/2017 Ot V72.63 PRE- PROCEDURAL LABORATORY EXAMINATION 04/09/2017 YOGI STILES APRN Ot V28.89 OTHER SPECIFIED SCREENING 04/09/2017 GILA GREWAL DO Ot 574.20 CHOLELITHIASIS NOS 04/09/2017 SAHARA GREGORY, DESHAUN Fernandez Ot M51.36 OTHER INTERVERTEBRAL DISC DEGENERATION, 04/09/2017 ANGEL GREGORY, RAJESH Gaines Ot Z36 ENCOUNTER FOR SCREENING OF MOT 04/09/2017 RAJESH ORTIZ MD Ot Z3A.09 9 WEEKS GESTATION OF 05/13/2017 Ot 654.23 PREV DELIVERY, ANTEPARTUM COND 05/13/2017 Ot V72.63 PRE- PROCEDURAL LABORATORY EXAMINATION 05/13/2017 YOGI STILES CHARTERED WEALTH MANAGER Ot V28.89 OTHER SPECIFIED SCREENING 05/13/2017 GILA GREWAL DO Ot 574.20 CHOLELITHIASIS NOS 05/13/2017 DESHAUN SHOEMAKER MD Ot M51.36 OTHER INTERVERTEBRAL DISC DEGENERATION, 05/13/2017 RAJESH ORTIZ MD, Ot Z36 ENCOUNTER FOR SCREENING OF MOT 05/13/2017 RAJESH ORTIZ MD, Ot Z3A.09 9 WEEKS GESTATION OF 05/13/2017 MICHAEL CADET MD, Ot O47.1 FALSE LABOR AT OR AFTER 37 COMPLETED WEE 05/13/2017 MICHAEL CADET MD, Ot Z3A.29 29 WEEKS GESTATION OF 05/20/2017 MICHAEL CADET MD, Ot O47.1 FALSE LABOR AT OR AFTER 37 COMPLETED WEE 05/20/2017 MICHAEL CADET MD, Ot Z3A.29 29 WEEKS GESTATION OF 05/28/2017 Ot 654.23 PREV DELIVERY, ANTEPARTUM COND 05/28/2017 Ot V72.63 PRE- PROCEDURAL LABORATORY EXAMINATION 05/28/2017 YOGI STILES CHARTERED WEALTH MANAGER Ot V28.89 OTHER SPECIFIED SCREENING 05/28/2017 GILA GREWAL DO Ot 574.20 CHOLELITHIASIS NOS 05/28/2017 SAHARA GREGORY, DESHAUN Fernandez Ot M51.36 OTHER INTERVERTEBRAL DISC DEGENERATION, 05/28/2017 RAJESH ORTIZ MD, Ot Z36 ENCOUNTER FOR SCREENING OF MOT 05/28/2017 RAJESH ORTIZ MD, Ot Z3A.09 9 WEEKS GESTATION OF 05/28/2017 VALERIA MARTINEZ DO S Ot K92.1 MELENA 05/28/2017 VALERIA MARTINEZ DO S Ot O99.613 DISEASES OF THE DGSTV SYS COMP 05/28/2017 VALERIA MARTINEZ DO S Ot Z3A.35 35 WEEKS GESTATION OF 06/06/2017 VALERIA MARTINEZ DO Ot F19.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, IN R 06/06/2017 VALERIA MARTINEZ DO S Ot K52.9 NONINFECTIVE GASTROENTERITIS AND COLITIS 06/06/2017 VALERIA MARTINEZ DO S Ot O09.43 SUPRVSN OF W GRAND MULTIPARITY 06/06/2017 VALERIA MARTINEZ DO Ot O23.43 UNSP INFCT OF URINARY TRACT IN 06/06/2017 VALERIA MARTINEZ DO Ot O99.323 DRUG USE COMPLICATING , THIRD T 06/06/2017 VALERIA MARTINEZ DO Ot O99.613 DISEASES OF THE DGSTV SYS COMP 06/06/2017 VALERIA MARTINEZ DO Ot Z3A.32 32 WEEKS GESTATION OF 06/26/2017 MICHAEL CADET MD, Ot O47.1 FALSE LABOR AT OR AFTER 37 COMPLETED WEE 06/26/2017 MICHAEL CADET MD, Ot Z3A.29 29 WEEKS GESTATION OF Procedures Code Description Performed By Performed On 74.1 LOW CERVICAL 08/25/2007 99.77 APPL/ADMIN OF AN ADHESION BARRIER SUBSTA 08/25/2007 72.79 VACUUM EXTRACT DEL NEC 03/21/2009 74.1 LOW CERVICAL 03/21/2009 74.1 LOW CERVICAL 11/02/2012 99.77 APPL/ADMIN OF AN ADHESION BARRIER SUBSTA 11/02/2012 96795 ROUTINE VENIPUNCTURE 06/08/2013 91857 UA OB DIP 06/08/2013 15247 URINE TEST (IN- HOUSE) 06/08/2013 77566 TRICHOMONAS (IN-HOUSE) 06/08/2013 73756 URINE DRUG SCREEN (IN-HOUSE ) 06/08/2013 73131 CBC 06/08/2013 28540 TSH 06/08/2013 47588 HIV ANTIBODIES (RML) 06/09/2013 59438 BLOOD TYPE/Rh FACTOR 06/09/2013 [id number] ANTIBODY SCREEN (RESULT ONLY) 06/09/2013 69458 DIRECT VESTA 06/09/2013 12852 RUBELLA ANTIBODY, IGG 06/09/2013 03100 ANTIBODY IDENTIFICATION 06/09/2013 44026 CULTURE, URINE 06/09/2013 70263 US OB - EARLY <14 WEEKS 06/10/2013 45488 SYPHILLIS-STATE [facility] 06/10/2013 75396 HEP B ANTIBODY ([facility] LAB) 06/10/2013 68105 ANTIBODY SCREEN (order) 06/10/2013 28410 GC/CHLAM PROBE (STATE) 06/10/2013 78261 PAP SMEAR 06/10/2013 Q0091 PAP SMEAR OBTAIN SMEAR 06/10/2013 18672 CULTURE UROGENITAL 06/11/2013 [id number] MFM US MIDDLE CEREBRAL ARTERY ECHO 11/02/2013 [id number] MFM US OB FOLLOW UP TRANSABDOMINAL APPROACH 11/02/2013 [id number] MFM US UMBILICAL ARTERY ECHO 11/02/2013 [id number] MFM US BIOPHYSICAL PROFILE WO NON STRESS TESTING 11/02/2013 [id number] ANTIGEN TYPING, RBC, OTHER THAN ABORH 11/21/2013 URL006 ANTIBODY TITER 11/21/2013 SIS599 ANTIBODY SCREEN 11/21/2013 IRY603 ABO/RH 11/21/2013 IBH285 ANTIBODY IDENTIFICATION 11/21/2013 SKH246 ANTIBODY TITER 11/21/2013 OFU265 ANTIBODY SCREEN 11/21/2013 UNH539 ANTIBODY IDENTIFICATION 11/21/2013 SMS499 ANTIBODY TITER 11/19/2015 CJR451 ANTIBODY IDENTIFICATION 11/19/2015 INY1460 LS RATIO 11/19/2015 [id number] LAMELLAR BODY COUNTS 11/19/2015 [id number] MISCELLANEOUS TEST 11/19/2015 WEU940 URIC ACID 11/19/2015 LAB20 HEPATIC FUNCTION PANEL 11/19/2015 [id number] CANCELLED TEST 11/19/2015 ZSN684 CBC AND DIFFERENTIAL 11/19/2015 ZDX235 ANTIBODY IDENTIFICATION 11/19/2015 [id number] EXTRACTION OF POC, LOW CERVICAL, OPEN AP 01/18/2016 [id number] INTRODUCE OTH THERAP SUBST IN EPIDURAL S 01/21/2016 Results Test Result Range ANTIBODY TITER - 10/11/15 16:20 ANTIBODY TITER 0, anti-[place] Complete blood count (CBC) with automated white blood cell (WBC) differential - 06/02/16 00:28 Blood leukocytes automated count (number/volume) 12.8 10*3/uL 4.3-11.0 Blood erythrocytes automated count (number/volume) 4.89 10*6/uL 4.35-5.85 Venous blood hemoglobin measurement (mass/volume) 13.3 g/dL 11.5-16.0 Blood hematocrit (volume fraction) 41 % 35-52 Automated erythrocyte mean corpuscular volume 84 [foz_us] 80-99 Automated erythrocyte mean corpuscular hemoglobin (mass per erythrocyte) 27 pg 25-34 Automated erythrocyte mean corpuscular hemoglobin concentration measurement ( mass/volume) 32 g/dL 32-36 Automated erythrocyte distribution width ratio 13.9 % 10.0-14.5 Automated blood platelet count (count/volume) 574 10*3/uL 130-400 Automated blood platelet mean volume measurement 9.6 [foz_us] 7.4-10.4 Automated blood neutrophils/100 leukocytes 62 % 42-75 Automated blood lymphocytes/100 leukocytes 28 % 12-44 Blood monocytes/100 leukocytes 7 % 0-12 Automated blood eosinophils/100 leukocytes 2 % 0-10 Automated blood basophils/100 leukocytes 1 % 0-10 Blood neutrophils automated count (number/volume) 8.0 10*3 1.8-7.8 Blood lymphocytes automated count (number/volume) 3.6 10*3 1.0-4.0 Blood monocytes automated count (number/volume) 0.9 10*3 0.0-1.0 Automated eosinophil count 0.2 10*3/uL 0.0-0.3 Automated blood basophil count (count/volume) 0.1 10*3/uL 0.0-0.1 Comprehensive metabolic panel - 06/02/16 00:28 Serum or plasma sodium measurement (moles/volume) 143 mmol/L 135-145 Serum or plasma potassium measurement (moles/volume) 4.1 mmol/L 3.6-5.0 Serum or plasma chloride measurement (moles/volume) 108 mmol/L 98-107 Carbon dioxide 22 mmol/L 21-32 Serum or plasma anion gap determination (moles/volume) 13 mmol/L 5-14 Serum or plasma urea nitrogen measurement (mass/volume) 10 mg/dL 7-18 Serum or plasma creatinine measurement (mass/volume) 0.80 mg/dL 0.60-1.30 Serum or plasma urea nitrogen/creatinine mass ratio 13 NRG Serum or plasma creatinine measurement with calculation of estimated glomerular filtration rate > NRG Serum or plasma glucose measurement (mass/volume) 104 mg/dL 70-105 Serum or plasma calcium measurement (mass/volume) 9.1 mg/dL 8.5-10.1 Serum or plasma total bilirubin measurement (mass/volume) 0.2 mg/dL 0.1-1.0 Serum or plasma alkaline phosphatase measurement (enzymatic activity/volume) 87 U/L 40-136 Serum or plasma aspartate aminotransferase measurement (enzymatic activity/ volume) 19 U/L 5-34 Serum or plasma alanine aminotransferase measurement (enzymatic activity/volume ) 17 U/L 0-55 Serum or plasma protein measurement (mass/volume) 7.4 g/dL 6.4-8.2 Serum or plasma albumin measurement (mass/volume) 4.1 g/dL 3.2-4.5 Complete urinalysis with reflex to culture - 06/02/16 00:30 Urine color determination YELLOW NRG Urine clarity determination VERY CLOUDY NRG Urine pH measurement by test strip 6 5-9 Specific gravity of urine by test strip 1.015 1.016- 1.022 Urine protein assay by test strip, semi-quantitative 3+ NEGATIVE Urine glucose detection by automated test strip NEGATIVE NEGATIVE Erythrocytes detection in urine sediment by light microscopy 4+ NEGATIVE Urine ketones detection by automated test strip NEGATIVE NEGATIVE Urine nitrite detection by test strip POSITIVE NEGATIVE Urine total bilirubin detection by test strip NEGATIVE NEGATIVE Urine urobilinogen measurement by automated test strip (mass/volume) NORMAL NORMAL Urine leukocyte esterase detection by dipstick 3+ NEGATIVE Automated urine sediment erythrocyte count by microscopy (number/high power field) [HPF] NRG Automated urine sediment leukocyte count by microscopy (number/high power field ) TNTC NRG Bacteria detection in urine sediment by light microscopy LARGE NRG Squamous epithelial cells detection in urine sediment by light microscopy 2-5 NRG Crystals detection in urine sediment by light microscopy NONE NRG Casts detection in urine sediment by light microscopy NONE NRG Mucus detection in urine sediment by light microscopy NEGATIVE NRG Complete urinalysis with reflex to culture YES NRG Bacterial urine culture - 06/02/16 00:30 Bacterial urine culture [id number] NRG COLONY COUNT >100,000/ML NRG FTX;REPORTABLE SENSITIVITY REPORTED 06/03/16 7:30 NRG Bacterial susceptibility panel - 06/02/16 00:30 Gentamicin susceptibility test by minimum inhibitory concentration < = NRG Trimethoprim/sulfamethoxazole susceptibility test by minimum inhibitoryconcentration >= NRG Ampicillin susceptibility test by minimum inhibitory concentration > = NRG Tobramycin susceptibility test by minimum inhibitory concentration < = NRG Cefazolin susceptibility test by minimum inhibitory concentration 8 NRG Ceftriaxone susceptibility test by minimum inhibitory concentration <= NRG Ampicillin/sulbactam susceptibility test by minimum inhibitory concentration >= NRG Piperacillin/tazobactam susceptibility test by minimum inhibitory concentration <= NRG Ciprofloxacin susceptibility test by minimum inhibitory concentration <= NRG Meropenem susceptibility test by minimum inhibitory concentration < = NRG Nitrofurantoin susceptibility test by minimum inhibitory concentration <= NRG Aztreonam susceptibility test by minimum inhibitory concentration < = NRG Extended spectrum beta lactamase (ESBL) producing bacteria susceptibility test by minimum inhibitory concentration - NR Streptococcus pyogenes antigen detection - 06/16/16 23:30 Streptococcus pyogenes antigen detection POSITIVE NEGATIVE Complete urinalysis with reflex to culture - 07/10/16 12:32 Urine color determination YELLOW NRG Urine clarity determination VERY CLOUDY NRG Urine pH measurement by test strip 6 5-9 Specific gravity of urine by test strip 1.025 1.016- 1.022 Urine protein assay by test strip, semi-quantitative 2+ NEGATIVE Urine glucose detection by automated test strip NEGATIVE NEGATIVE Erythrocytes detection in urine sediment by light microscopy 4+ NEGATIVE Urine ketones detection by automated test strip NEGATIVE NEGATIVE Urine nitrite detection by test strip POSITIVE NEGATIVE Urine total bilirubin detection by test strip NEGATIVE NEGATIVE Urine urobilinogen measurement by automated test strip (mass/volume) NORMAL NORMAL Urine leukocyte esterase detection by dipstick 3+ NEGATIVE Automated urine sediment erythrocyte count by microscopy (number/high power field) [HPF] NRG Automated urine sediment leukocyte count by microscopy (number/high power field ) [HPF] NRG Bacteria detection in urine sediment by light microscopy LARGE NRG Squamous epithelial cells detection in urine sediment by light microscopy 2-5 NRG Crystals detection in urine sediment by light microscopy NONE NRG Casts detection in urine sediment by light microscopy NONE NRG Mucus detection in urine sediment by light microscopy NEGATIVE NRG Complete urinalysis with reflex to culture YES NRG Bacterial urine culture - 07/10/16 12:32 Bacterial urine culture [id number] NRG COLONY COUNT >100,000/ML NR FTX;REPORTABLE SENSITIVITY REPORTED AT 1652, 07-11-16 NR FREE TEXT ENTRY 2 UNUSUAL RESISTANT PATTERN DETECTED; NR FREE TEXT ENTRY 3 ESBL IDENTIFIED. [facility] Bacterial susceptibility panel - 07/10/16 12:32 Gentamicin susceptibility test by minimum inhibitory concentration < = NRG Trimethoprim/sulfamethoxazole susceptibility test by minimum inhibitoryconcentration >= NRG Ampicillin susceptibility test by minimum inhibitory concentration > = NRG Tobramycin susceptibility test by minimum inhibitory concentration < = NRG Cefazolin susceptibility test by minimum inhibitory concentration > = NRG Ceftriaxone susceptibility test by minimum inhibitory concentration >= NRG Ampicillin/sulbactam susceptibility test by minimum inhibitory concentration 4 NRG Ciprofloxacin susceptibility test by minimum inhibitory concentration >= NRG Meropenem susceptibility test by minimum inhibitory concentration < = NRG Nitrofurantoin susceptibility test by minimum inhibitory concentration <= NRG Aztreonam susceptibility test by minimum inhibitory concentration R NRG Extended spectrum beta lactamase (ESBL) producing bacteria susceptibility test by minimum inhibitory concentration + NRG Cefepime susceptibility test by minimum inhibitory concentration R NRG Complete blood count (CBC) with automated white blood cell (WBC) differential - 07/10/16 12:51 Blood leukocytes automated count (number/volume) 11.4 10*3/uL 4.3-11.0 Blood erythrocytes automated count (number/volume) 4.60 10*6/uL 4.35-5.85 Venous blood hemoglobin measurement (mass/volume) 12.2 g/dL 11.5-16.0 Blood hematocrit (volume fraction) 39 % 35-52 Automated erythrocyte mean corpuscular volume 84 [foz_us] 80-99 Automated erythrocyte mean corpuscular hemoglobin (mass per erythrocyte) 27 pg 25-34 Automated erythrocyte mean corpuscular hemoglobin concentration measurement ( mass/volume) 32 g/dL 32-36 Automated erythrocyte distribution width ratio 14.2 % 10.0-14.5 Automated blood platelet count (count/volume) 290 10*3/uL 130-400 Automated blood platelet mean volume measurement 9.5 [foz_us] 7.4-10.4 Automated blood neutrophils/100 leukocytes 90 % 42-75 Automated blood lymphocytes/100 leukocytes 9 % 12-44 Blood monocytes/100 leukocytes 1 % 0-12 Automated blood eosinophils/100 leukocytes 1 % 0-10 Automated blood basophils/100 leukocytes 0 % 0-10 Blood neutrophils automated count (number/volume) 10.3 10*3 1.8-7.8 Blood lymphocytes automated count (number/volume) 1.0 10*3 1.0-4.0 Blood monocytes automated count (number/volume) 0.1 10*3 0.0-1.0 Automated eosinophil count 0.1 10*3/uL 0.0-0.3 Automated blood basophil count (count/volume) 0.0 10*3/uL 0.0-0.1 Comprehensive metabolic panel - 07/10/16 12:51 Serum or plasma sodium measurement (moles/volume) 134 mmol/L 135-145 Serum or plasma potassium measurement (moles/volume) 3.4 mmol/L 3.6-5.0 Serum or plasma chloride measurement (moles/volume) 102 mmol/L 98-107 Carbon dioxide 24 mmol/L 21-32 Serum or plasma anion gap determination (moles/volume) 8 mmol/L 5-14 Serum or plasma urea nitrogen measurement (mass/volume) 9 mg/dL 7-18 Serum or plasma creatinine measurement (mass/volume) 0.80 mg/dL 0.60-1.30 Serum or plasma urea nitrogen/creatinine mass ratio 11 NRG Serum or plasma creatinine measurement with calculation of estimated glomerular filtration rate > NRG Serum or plasma glucose measurement (mass/volume) 95 mg/dL 70-105 Serum or plasma calcium measurement (mass/volume) 8.8 mg/dL 8.5-10.1 Serum or plasma total bilirubin measurement (mass/volume) 0.4 mg/dL 0.1-1.0 Serum or plasma alkaline phosphatase measurement (enzymatic activity/volume) 81 U/L 40-136 Serum or plasma aspartate aminotransferase measurement (enzymatic activity/ volume) 16 U/L 5-34 Serum or plasma alanine aminotransferase measurement (enzymatic activity/volume ) 14 U/L 0-55 Serum or plasma protein measurement (mass/volume) 7.5 g/dL 6.4-8.2 Serum or plasma albumin measurement (mass/volume) 4.0 g/dL 3.2-4.5 Blood manual differential performed detection - 07/10/16 12:51 Blood monocytes/100 leukocytes 1 % NRG Manual blood segmented neutrophils/100 leukocytes 92 % NRG Manual blood lymphocytes/100 leukocytes 7 % NRG Blood toxic granules detection by light microscopy 1+ NRG Complete urinalysis with reflex to culture - 11/25/16 15:16 Urine color determination YELLOW NRG Urine clarity determination CLEAR NRG Urine pH measurement by test strip 8 5-9 Specific gravity of urine by test strip 1.010 1.016- 1.022 Urine protein assay by test strip, semi-quantitative NEGATIVE NEGATIVE Urine glucose detection by automated test strip NEGATIVE NEGATIVE Erythrocytes detection in urine sediment by light microscopy NEGATIVE NEGATIVE Urine ketones detection by automated test strip 3+ NEGATIVE Urine nitrite detection by test strip NEGATIVE NEGATIVE Urine total bilirubin detection by test strip NEGATIVE NEGATIVE Urine urobilinogen measurement by automated test strip (mass/volume) NORMAL NORMAL Urine leukocyte esterase detection by dipstick 1+ NEGATIVE Automated urine sediment erythrocyte count by microscopy (number/high power field) NONE NRG Automated urine sediment leukocyte count by microscopy (number/high power field ) [HPF] NRG Bacteria detection in urine sediment by light microscopy MODERATE NRG Squamous epithelial cells detection in urine sediment by light microscopy 10-25 NRG Crystals detection in urine sediment by light microscopy NONE NRG Casts detection in urine sediment by light microscopy NONE NRG Mucus detection in urine sediment by light microscopy NEGATIVE NRG Complete urinalysis with reflex to culture YES NRG Urine drug screening test - 11/25/16 15:16 Urine phencyclidine detection by screening method NEGATIVE NEGATIVE Urine benzodiazepines detection by screening method POSITIVE NEGATIVE Urine cocaine detection NEGATIVE NEGATIVE Urine amphetamines detection by screening method POSITIVE NEGATIVE Urine methamphetamine detection by screening method POSITIVE NEGATIVE Urine cannabinoids detection by screening method POSITIVE NEGATIVE Urine opiates detection by screening method NEGATIVE NEGATIVE Urine barbiturates detection NEGATIVE NEGATIVE Screening urine tricyclic antidepressants detection NEGATIVE NEGATIVE Urine methadone detection by screening method NEGATIVE NEGATIVE Urine oxycodone detection NEGATIVE NEGATIVE Urine propoxyphene detection NEGATIVE NEGATIVE Bacterial urine culture - 11/25/16 15:16 Bacterial urine culture [id number] NRG COLONY COUNT >100,000/ML NRG FTX;REPORTABLE PLUS, NRG FREE TEXT ENTRY 2 MIXED GRAM POSITIVES <10,000/ML NRG Bacterial susceptibility panel - 11/25/16 15:16 Gentamicin susceptibility test by minimum inhibitory concentration > = NRG Trimethoprim/sulfamethoxazole susceptibility test by minimum inhibitoryconcentration >= NRG Ampicillin susceptibility test by minimum inhibitory concentration > = NRG Tobramycin susceptibility test by minimum inhibitory concentration 8 NRG Cefazolin susceptibility test by minimum inhibitory concentration < = NRG Ceftriaxone susceptibility test by minimum inhibitory concentration <= NRG Ampicillin/sulbactam susceptibility test by minimum inhibitory concentration 16 NRG Piperacillin/tazobactam susceptibility test by minimum inhibitory concentration <= NRG Ciprofloxacin susceptibility test by minimum inhibitory concentration 0.5 NRG Meropenem susceptibility test by minimum inhibitory concentration < = NRG Nitrofurantoin susceptibility test by minimum inhibitory concentration <= NRG Aztreonam susceptibility test by minimum inhibitory concentration < = NRG Extended spectrum beta lactamase (ESBL) producing bacteria susceptibility test by minimum inhibitory concentration - NRG Amikacin susceptibility test by minimum inhibitory concentration S NRG Complete blood count (CBC) with automated white blood cell (WBC) differential - 11/25/16 15:31 Blood leukocytes automated count (number/volume) 6.5 10*3/uL 4.3-11.0 Blood erythrocytes automated count (number/volume) 4.37 10*6/uL 4.35-5.85 Venous blood hemoglobin measurement (mass/volume) 11.7 g/dL 11.5-16.0 Blood hematocrit (volume fraction) 36 % 35-52 Automated erythrocyte mean corpuscular volume 82 [foz_us] 80-99 Automated erythrocyte mean corpuscular hemoglobin (mass per erythrocyte) 27 pg 25-34 Automated erythrocyte mean corpuscular hemoglobin concentration measurement ( mass/volume) 33 g/dL 32-36 Automated erythrocyte distribution width ratio 15.1 % 10.0-14.5 Automated blood platelet count (count/volume) 357 10*3/uL 130-400 Automated blood platelet mean volume measurement 10.5 [foz_us] 7.4-10.4 Automated blood neutrophils/100 leukocytes 78 % 42-75 Automated blood lymphocytes/100 leukocytes 17 % 12-44 Blood monocytes/100 leukocytes 5 % 0-12 Automated blood eosinophils/100 leukocytes 0 % 0-10 Automated blood basophils/100 leukocytes 0 % 0-10 Blood neutrophils automated count (number/volume) 5.0 10*3 1.8-7.8 Blood lymphocytes automated count (number/volume) 1.1 10*3 1.0-4.0 Blood monocytes automated count (number/volume) 0.3 10*3 0.0-1.0 Automated eosinophil count 0.0 10*3/uL 0.0-0.3 Automated blood basophil count (count/volume) 0.0 10*3/uL 0.0-0.1 Serum or plasma choriogonadotropin ( test) detection - 11/25/16 15:31 Serum or plasma choriogonadotropin ( test) detection POSITIVE NEGATIVE Comprehensive metabolic panel - 11/25/16 15:31 Serum or plasma sodium measurement (moles/volume) 139 mmol/L 135-145 Serum or plasma potassium measurement (moles/volume) 3.8 mmol/L 3.6-5.0 Serum or plasma chloride measurement (moles/volume) 110 mmol/L 98-107 Carbon dioxide 19 mmol/L 21-32 Serum or plasma anion gap determination (moles/volume) 10 mmol/L 5-14 Serum or plasma urea nitrogen measurement (mass/volume) 5 mg/dL 7-18 Serum or plasma creatinine measurement (mass/volume) 0.80 mg/dL 0.60-1.30 Serum or plasma urea nitrogen/creatinine mass ratio 6 NRG Serum or plasma creatinine measurement with calculation of estimated glomerular filtration rate > NRG Serum or plasma glucose measurement (mass/volume) 93 mg/dL 70-105 Serum or plasma calcium measurement (mass/volume) 9.6 mg/dL 8.5-10.1 Serum or plasma total bilirubin measurement (mass/volume) 0.5 mg/dL 0.1-1.0 Serum or plasma alkaline phosphatase measurement (enzymatic activity/volume) 59 U/L 40-136 Serum or plasma aspartate aminotransferase measurement (enzymatic activity/ volume) 16 U/L 5-34 Serum or plasma alanine aminotransferase measurement (enzymatic activity/volume ) 14 U/L 0-55 Serum or plasma protein measurement (mass/volume) 7.7 g/dL 6.4-8.2 Serum or plasma albumin measurement (mass/volume) 4.4 g/dL 3.2-4.5 Magnesium - 11/25/16 15:31 Magnesium 1.9 mg/dL 1.8-2.4 Serum or plasma creatine kinase measurement (enzymatic activity/volume) - 11/25 15:31 Serum or plasma creatine kinase measurement (enzymatic activity/volume) 83 U/L 29-168 Serum or plasma troponin i.cardiac measurement (mass/volume) - 11/25/16 15:31 Serum or plasma troponin i.cardiac measurement (mass/volume) < ng/ mL <0.30 Serum or plasma thyrotropin measurement by detection limit <=0.05 miu/l (units/ volume) - 11/25/16 15:31 Serum or plasma thyrotropin measurement by detection limit <=0.05 miu/l (units/ volume) 0.89 u[iU]/mL 0.35-4.94 Serum or plasma ethanol measurement (mass/volume) - 11/25/16 15:31 Serum or plasma ethanol measurement (mass/volume) < mg/dL <10 ALPHA-FETOPROTEIN TETRA PROFILE - 03/19/17 09:14 ALPHAFETOPROTEIN TETRA PROFILE Report [id number] *Screen Negative* 1781 21.3 WEEKS 1782 LMP 1783 30.8 YEARS 1784 1785 168 lbs 1786 No 1787 No 1788 83.6 ng/mL 1789 1.36 1790 60208 mIU/mL 179 3.11 1792 1.69 ng/mL 1793 0.79 1794 518.84 pg/mL 1795 2.56 1796 4034 1529 834 1886 630 1799 Not increased 1800 1:2456 1801 Comment 1802 Comment ANTIBODY SCREEN - 04/13/17 08:55 ANTIBODY SCREEN NEG Complete urinalysis with reflex to culture - 05/13/17 19:40 Urine color determination YELLOW NRG Urine clarity determination CLEAR NRG Urine pH measurement by test strip 7 5-9 Specific gravity of urine by test strip 1.010 1.016- 1.022 Urine protein assay by test strip, semi-quantitative NEGATIVE NEGATIVE Urine glucose detection by automated test strip NEGATIVE NEGATIVE Erythrocytes detection in urine sediment by light microscopy NEGATIVE NEGATIVE Urine ketones detection by automated test strip NEGATIVE NEGATIVE Urine nitrite detection by test strip NEGATIVE NEGATIVE Urine total bilirubin detection by test strip NEGATIVE NEGATIVE Urine urobilinogen measurement by automated test strip (mass/volume) NORMAL NORMAL Urine leukocyte esterase detection by dipstick 3+ NEGATIVE Automated urine sediment erythrocyte count by microscopy (number/high power field) NONE NRG Automated urine sediment leukocyte count by microscopy (number/high power field ) [HPF] NRG Bacteria detection in urine sediment by light microscopy FEW NRG Squamous epithelial cells detection in urine sediment by light microscopy 10-25 NRG Crystals detection in urine sediment by light microscopy NONE NRG Casts detection in urine sediment by light microscopy NONE NRG Mucus detection in urine sediment by light microscopy NEGATIVE NRG Complete urinalysis with reflex to culture YES NRG Urine drug screening test - 05/13/17 19:40 Urine phencyclidine detection by screening method NEGATIVE NEGATIVE Urine benzodiazepines detection by screening method NEGATIVE NEGATIVE Urine cocaine detection NEGATIVE NEGATIVE Urine amphetamines detection by screening method POSITIVE NEGATIVE Urine methamphetamine detection by screening method NEGATIVE NEGATIVE Urine cannabinoids detection by screening method NEGATIVE NEGATIVE Urine opiates detection by screening method NEGATIVE NEGATIVE Urine barbiturates detection NEGATIVE NEGATIVE Screening urine tricyclic antidepressants detection NEGATIVE NEGATIVE Urine methadone detection by screening method NEGATIVE NEGATIVE Urine oxycodone detection NEGATIVE NEGATIVE Urine propoxyphene detection NEGATIVE NEGATIVE Bacterial urine culture - 05/13/17 19:40 URINE CULTURE RESULTS <10,000/ML NRG Bacterial urine culture - 05/28/17 20:45 Bacterial urine culture [id number] NRG COLONY COUNT <10,000 NRG FTX;REPORTABLE NO FURTHER STUDIES UNLESS REQUESTED NRG URINE CULTURE RESULTS PLUS NRG Complete urinalysis with reflex to culture - 06/05/17 14:15 Urine color determination YELLOW NRG Urine clarity determination VERY CLOUDY NRG Urine pH measurement by test strip 6 5-9 Specific gravity of urine by test strip 1.020 1.016- 1.022 Urine protein assay by test strip, semi-quantitative 2+ NEGATIVE Urine glucose detection by automated test strip NEGATIVE NEGATIVE Erythrocytes detection in urine sediment by light microscopy 1+ NEGATIVE Urine ketones detection by automated test strip 3+ NEGATIVE Urine nitrite detection by test strip POSITIVE NEGATIVE Urine total bilirubin detection by test strip 1+ NEGATIVE Urine urobilinogen measurement by automated test strip (mass/volume) 1 mg/dL NORMAL Urine leukocyte esterase detection by dipstick 3+ NEGATIVE Automated urine sediment erythrocyte count by microscopy (number/high power field) [HPF] NRG Automated urine sediment leukocyte count by microscopy (number/high power field ) [HPF] NRG Bacteria detection in urine sediment by light microscopy FEW NRG Squamous epithelial cells detection in urine sediment by light microscopy >50 NRG Crystals detection in urine sediment by light microscopy NONE NRG Casts detection in urine sediment by light microscopy NONE NRG Mucus detection in urine sediment by light microscopy SMALL NRG Complete urinalysis with reflex to culture YES NRG Urine drug screening test - 06/05/17 14:15 Urine phencyclidine detection by screening method NEGATIVE NEGATIVE Urine benzodiazepines detection by screening method NEGATIVE NEGATIVE Urine cocaine detection NEGATIVE NEGATIVE Urine amphetamines detection by screening method NEGATIVE NEGATIVE Urine methamphetamine detection by screening method NEGATIVE NEGATIVE Urine cannabinoids detection by screening method NEGATIVE NEGATIVE Urine opiates detection by screening method NEGATIVE NEGATIVE Urine barbiturates detection NEGATIVE NEGATIVE Screening urine tricyclic antidepressants detection NEGATIVE NEGATIVE Urine methadone detection by screening method NEGATIVE NEGATIVE Urine oxycodone detection NEGATIVE NEGATIVE Urine propoxyphene detection NEGATIVE NEGATIVE Bacterial urine culture - 06/05/17 14:15 Bacterial urine culture [id number] NRG COLONY COUNT <10,000 NRG FTX;REPORTABLE SEE COMMENT NR URINE CULTURE RESULTS PLUS NR FREE TEXT ENTRY 2 UNUSUAL RESISTANCE PATTERN DETECTED; NR FREE TEXT ENTRY 3 ESBL IDENTIFIED. [facility] Bacterial susceptibility panel - 06/05/17 14:15 Gentamicin susceptibility test by minimum inhibitory concentration < = NRG Trimethoprim/sulfamethoxazole susceptibility test by minimum inhibitoryconcentration R NRG Ampicillin susceptibility test by minimum inhibitory concentration > = NRG Tobramycin susceptibility test by minimum inhibitory concentration < = NRG Cefazolin susceptibility test by minimum inhibitory concentration > = NRG Ceftriaxone susceptibility test by minimum inhibitory concentration >= NRG Ampicillin/sulbactam susceptibility test by minimum inhibitory concentration S NRG Ciprofloxacin susceptibility test by minimum inhibitory concentration >= NRG Meropenem susceptibility test by minimum inhibitory concentration < = NRG Nitrofurantoin susceptibility test by minimum inhibitory concentration <= NRG Aztreonam susceptibility test by minimum inhibitory concentration R NRG Extended spectrum beta lactamase (ESBL) producing bacteria susceptibility test by minimum inhibitory concentration + NRG Cefepime susceptibility test by minimum inhibitory concentration R NRG Complete blood count (CBC) with automated white blood cell (WBC) differential - 06/05/17 15:41 Blood leukocytes automated count (number/volume) 12.8 10*3/uL 4.3-11.0 Blood erythrocytes automated count (number/volume) 4.70 10*6/uL 4.35-5.85 Venous blood hemoglobin measurement (mass/volume) 13.2 g/dL 11.5-16.0 Blood hematocrit (volume fraction) 39 % 35-52 Automated erythrocyte mean corpuscular volume 83 [foz_us] 80-99 Automated erythrocyte mean corpuscular hemoglobin (mass per erythrocyte) 28 pg 25-34 Automated erythrocyte mean corpuscular hemoglobin concentration measurement ( mass/volume) 34 g/dL 32-36 Automated erythrocyte distribution width ratio 13.0 % 10.0-14.5 Automated blood platelet count (count/volume) 246 10*3/uL 130-400 Automated blood platelet mean volume measurement 10.6 [foz_us] 7.4-10.4 Automated blood neutrophils/100 leukocytes 93 % 42-75 Automated blood lymphocytes/100 leukocytes 3 % 12-44 Blood monocytes/100 leukocytes 4 % 0-12 Automated blood eosinophils/100 leukocytes 0 % 0-10 Automated blood basophils/100 leukocytes 0 % 0-10 Blood neutrophils automated count (number/volume) 11.9 10*3 1.8-7.8 Blood lymphocytes automated count (number/volume) 0.4 10*3 1.0-4.0 Blood monocytes automated count (number/volume) 0.5 10*3 0.0-1.0 Automated eosinophil count 0.0 10*3/uL 0.0-0.3 Automated blood basophil count (count/volume) 0.0 10*3/uL 0.0-0.1 Comprehensive metabolic panel - 06/05/17 15:41 Serum or plasma sodium measurement (moles/volume) 139 mmol/L 135-145 Serum or plasma potassium measurement (moles/volume) 4.0 mmol/L 3.6-5.0 Serum or plasma chloride measurement (moles/volume) 110 mmol/L 98-107 Carbon dioxide 18 mmol/L 21-32 Serum or plasma anion gap determination (moles/volume) 11 mmol/L 5-14 Serum or plasma urea nitrogen measurement (mass/volume) 8 mg/dL 7-18 Serum or plasma creatinine measurement (mass/volume) 0.59 mg/dL 0.60-1.30 Serum or plasma urea nitrogen/creatinine mass ratio 14 NRG Serum or plasma creatinine measurement with calculation of estimated glomerular filtration rate > NRG Serum or plasma glucose measurement (mass/volume) 88 mg/dL 70-105 Serum or plasma calcium measurement (mass/volume) 8.5 mg/dL 8.5-10.1 Serum or plasma total bilirubin measurement (mass/volume) 0.3 mg/dL 0.1-1.0 Serum or plasma alkaline phosphatase measurement (enzymatic activity/volume) 157 U/L 40-136 Serum or plasma aspartate aminotransferase measurement (enzymatic activity/ volume) 18 U/L 5-34 Serum or plasma alanine aminotransferase measurement (enzymatic activity/volume ) 12 U/L 0-55 Serum or plasma protein measurement (mass/volume) 7.1 g/dL 6.4-8.2 Serum or plasma albumin measurement (mass/volume) 3.3 g/dL 3.2-4.5 Serum or plasma conjugated bilirubin+indirect measurement (mass/volume) - 06/05 15:41 Bilirubin direct 0.1 mg/dL 0.0-0.3 Serum or plasma indirect bilirubin measurement (mass/volume) 0.2 mg/ dL NRG Serum or plasma amylase measurement (enzymatic activity/volume) - 06/05/17 15: 41 Serum or plasma amylase measurement (enzymatic activity/volume) 64 U /L 25-125 Lipase - 06/05/17 15:41 Lipase 13 U/L 8-78 Blood manual differential performed detection - 06/05/17 15:41 Blood monocytes/100 leukocytes 2 % NRG Manual blood segmented neutrophils/100 leukocytes 77 % NRG Blood band neutrophils/100 leukocytes 13 % NRG Manual blood lymphocytes/100 leukocytes 8 % NRG Manual eosinophils/100 leukocytes in nose 0 % NRG Manual blood basophils/100 leukocytes 0 % NRG Blood erythrocyte morphology finding identification NORMAL NRG Urine drug screening test - 06/24/17 11:05 Urine phencyclidine detection by screening method NEGATIVE NEGATIVE Urine benzodiazepines detection by screening method NEGATIVE NEGATIVE Urine cocaine detection NEGATIVE NEGATIVE Urine amphetamines detection by screening method NEGATIVE NEGATIVE Urine methamphetamine detection by screening method NEGATIVE NEGATIVE Urine cannabinoids detection by screening method NEGATIVE NEGATIVE Urine opiates detection by screening method NEGATIVE NEGATIVE Urine barbiturates detection NEGATIVE NEGATIVE Screening urine tricyclic antidepressants detection NEGATIVE NEGATIVE Urine methadone detection by screening method NEGATIVE NEGATIVE Urine oxycodone detection NEGATIVE NEGATIVE Urine propoxyphene detection NEGATIVE NEGATIVE Complete blood count (CBC) with automated white blood cell (WBC) differential - 06/24/17 11:48 Blood leukocytes automated count (number/volume) 9.0 10*3/uL 4.3-11.0 Blood erythrocytes automated count (number/volume) 4.00 10*6/uL 4.35-5.85 Venous blood hemoglobin measurement (mass/volume) 11.0 g/dL 11.5-16.0 Blood hematocrit (volume fraction) 33 % 35-52 Automated erythrocyte mean corpuscular volume 83 [foz_us] 80-99 Automated erythrocyte mean corpuscular hemoglobin (mass per erythrocyte) 28 pg 25-34 Automated erythrocyte mean corpuscular hemoglobin concentration measurement ( mass/volume) 33 g/dL 32-36 Automated erythrocyte distribution width ratio 13.4 % 10.0-14.5 Automated blood platelet count (count/volume) 254 10*3/uL 130-400 Automated blood platelet mean volume measurement 9.9 [foz_us] 7.4-10.4 Automated blood neutrophils/100 leukocytes 77 % 42-75 Automated blood lymphocytes/100 leukocytes 17 % 12-44 Blood monocytes/100 leukocytes 6 % 0-12 Automated blood eosinophils/100 leukocytes 1 % 0-10 Automated blood basophils/100 leukocytes 0 % 0-10 Blood neutrophils automated count (number/volume) 6.9 10*3 1.8-7.8 Blood lymphocytes automated count (number/volume) 1.5 10*3 1.0-4.0 Blood monocytes automated count (number/volume) 0.5 10*3 0.0-1.0 Automated eosinophil count 0.1 10*3/uL 0.0-0.3 Automated blood basophil count (count/volume) 0.0 10*3/uL 0.0-0.1 Comprehensive metabolic panel - 06/24/17 11:48 Serum or plasma sodium measurement (moles/volume) 134 mmol/L 135-145 Serum or plasma potassium measurement (moles/volume) 3.7 mmol/L 3.6-5.0 Serum or plasma chloride measurement (moles/volume) 104 mmol/L 98-107 Carbon dioxide 22 mmol/L 21-32 Serum or plasma anion gap determination (moles/volume) 8 mmol/L 5-14 Serum or plasma urea nitrogen measurement (mass/volume) 5 mg/dL 7-18 Serum or plasma creatinine measurement (mass/volume) 0.58 mg/dL 0.60-1.30 Serum or plasma urea nitrogen/creatinine mass ratio 9 NRG Serum or plasma creatinine measurement with calculation of estimated glomerular filtration rate > NRG Serum or plasma glucose measurement (mass/volume) 73 mg/dL 70-105 Serum or plasma calcium measurement (mass/volume) 9.6 mg/dL 8.5-10.1 Serum or plasma total bilirubin measurement (mass/volume) 0.2 mg/dL 0.1-1.0 Serum or plasma alkaline phosphatase measurement (enzymatic activity/volume) 144 U/L 40-136 Serum or plasma aspartate aminotransferase measurement (enzymatic activity/ volume) 12 U/L 5-34 Serum or plasma alanine aminotransferase measurement (enzymatic activity/volume ) 7 U/L 0-55 Serum or plasma protein measurement (mass/volume) 6.4 g/dL 6.4-8.2 Serum or plasma albumin measurement (mass/volume) 3.1 g/dL 3.2-4.5 THYROID STIMULATING HORMONE - 06/24/17 11:48 THYROID STIMULATING HORMONE 0.92 u[iU]/mL 0.35-4.94 [id number] - 06/24/17 11:48 Serum or plasma acetaminophen measurement (mass/volume) Positive NRG Blood drugs identification by screening method Positive NRG Serum or plasma barbiturates detection by screening method Negative NRG Tricyclic antidepressants [presence] in blood by screen method Negative NRG Serum or plasma benzodiazepines measurement by screening method (mass/volume) Negative NRG Screening ethanol detection Negative NRG Serum or plasma salicylates measurement by screening method (mass/volume) Negative NRG Urine drug screening test - 06/24/17 16:50 Urine phencyclidine detection by screening method NEGATIVE NEGATIVE Urine benzodiazepines detection by screening method NEGATIVE NEGATIVE Urine cocaine detection NEGATIVE NEGATIVE Urine amphetamines detection by screening method NEGATIVE NEGATIVE Urine methamphetamine detection by screening method NEGATIVE NEGATIVE Urine cannabinoids detection by screening method NEGATIVE NEGATIVE Urine opiates detection by screening method NEGATIVE NEGATIVE Urine barbiturates detection NEGATIVE NEGATIVE Screening urine tricyclic antidepressants detection NEGATIVE NEGATIVE Urine methadone detection by screening method NEGATIVE NEGATIVE Urine oxycodone detection NEGATIVE NEGATIVE Urine propoxyphene detection NEGATIVE NEGATIVE Complete urinalysis with reflex to culture - 06/25/17 19:40 Urine color determination YELLOW NRG Urine clarity determination SLIGHTLY CLOUDY NRG Urine pH measurement by test strip 7 5-9 Specific gravity of urine by test strip 1.010 1.016- 1.022 Urine protein assay by test strip, semi-quantitative NEGATIVE NEGATIVE Urine glucose detection by automated test strip NEGATIVE NEGATIVE Erythrocytes detection in urine sediment by light microscopy NEGATIVE NEGATIVE Urine ketones detection by automated test strip NEGATIVE NEGATIVE Urine nitrite detection by test strip NEGATIVE NEGATIVE Urine total bilirubin detection by test strip NEGATIVE NEGATIVE Urine urobilinogen measurement by automated test strip (mass/volume) NORMAL NORMAL Urine leukocyte esterase detection by dipstick 3+ NEGATIVE Automated urine sediment erythrocyte count by microscopy (number/high power field) NONE NRG Automated urine sediment leukocyte count by microscopy (number/high power field ) [HPF] NRG Bacteria detection in urine sediment by light microscopy MODERATE NRG Squamous epithelial cells detection in urine sediment by light microscopy 25-50 NRG Crystals detection in urine sediment by light microscopy NONE NRG Casts detection in urine sediment by light microscopy NONE NRG Mucus detection in urine sediment by light microscopy NEGATIVE NRG Complete urinalysis with reflex to culture YES NRG Urine drug screening test - 06/25/17 19:40 Urine phencyclidine detection by screening method NEGATIVE NEGATIVE Urine benzodiazepines detection by screening method NEGATIVE NEGATIVE Urine cocaine detection NEGATIVE NEGATIVE Urine amphetamines detection by screening method NEGATIVE NEGATIVE Urine methamphetamine detection by screening method NEGATIVE NEGATIVE Urine cannabinoids detection by screening method NEGATIVE NEGATIVE Urine opiates detection by screening method NEGATIVE NEGATIVE Urine barbiturates detection NEGATIVE NEGATIVE Screening urine tricyclic antidepressants detection NEGATIVE NEGATIVE Urine methadone detection by screening method NEGATIVE NEGATIVE Urine oxycodone detection NEGATIVE NEGATIVE Urine propoxyphene detection NEGATIVE NEGATIVE Bacterial urine culture - 06/25/17 19:40 URINE CULTURE RESULTS 10,000/ML - 100,000/ML NRG Urine drug screening test - 06/29/17 18:10 Urine phencyclidine detection by screening method NEGATIVE NEGATIVE Urine benzodiazepines detection by screening method NEGATIVE NEGATIVE Urine cocaine detection NEGATIVE NEGATIVE Urine amphetamines detection by screening method NEGATIVE NEGATIVE Urine methamphetamine detection by screening method NEGATIVE NEGATIVE Urine cannabinoids detection by screening method NEGATIVE NEGATIVE Urine opiates detection by screening method POSITIVE NEGATIVE Urine barbiturates detection NEGATIVE NEGATIVE Screening urine tricyclic antidepressants detection NEGATIVE NEGATIVE Urine methadone detection by screening method NEGATIVE NEGATIVE Urine oxycodone detection NEGATIVE NEGATIVE Urine propoxyphene detection NEGATIVE NEGATIVE Complete urinalysis with reflex to culture - 06/29/17 18:10 Urine color determination YELLOW NRG Urine clarity determination CLEAR NRG Urine pH measurement by test strip 6.5 5-9 Specific gravity of urine by test strip 1.010 1.016- 1.022 Urine protein assay by test strip, semi-quantitative NEGATIVE NEGATIVE Urine glucose detection by automated test strip NEGATIVE NEGATIVE Erythrocytes detection in urine sediment by light microscopy NEGATIVE NEGATIVE Urine ketones detection by automated test strip NEGATIVE NEGATIVE Urine nitrite detection by test strip NEGATIVE NEGATIVE Urine total bilirubin detection by test strip NEGATIVE NEGATIVE Urine urobilinogen measurement by automated test strip (mass/volume) NORMAL NORMAL Urine leukocyte esterase detection by dipstick 3+ NEGATIVE Automated urine sediment erythrocyte count by microscopy (number/high power field) NONE NRG Automated urine sediment leukocyte count by microscopy (number/high power field ) [HPF] NRG Bacteria detection in urine sediment by light microscopy NEGATIVE NRG Squamous epithelial cells detection in urine sediment by light microscopy 5-10 NRG Crystals detection in urine sediment by light microscopy NONE NRG Casts detection in urine sediment by light microscopy NONE NRG Mucus detection in urine sediment by light microscopy NEGATIVE NRG Complete urinalysis with reflex to culture YES NRG Urine Trichomonas species detection by light microscopy FEW NRG Bacterial urine culture - 06/29/17 18:10 Bacterial urine culture [id number] NRG COLONY COUNT 10,000/ML - 100,000/ML NRG FREE TEXT ENTRY 2 MIXED GRAM POSITIVE BARB NRG Complete urinalysis with reflex to culture - 07/06/17 12:15 Urine color determination YELLOW NRG Urine clarity determination CLEAR NRG Urine pH measurement by test strip 7 5-9 Specific gravity of urine by test strip 1.005 1.016- 1.022 Urine protein assay by test strip, semi-quantitative NEGATIVE NEGATIVE Urine glucose detection by automated test strip NEGATIVE NEGATIVE Erythrocytes detection in urine sediment by light microscopy 1+ NEGATIVE Urine ketones detection by automated test strip NEGATIVE NEGATIVE Urine nitrite detection by test strip NEGATIVE NEGATIVE Urine total bilirubin detection by test strip NEGATIVE NEGATIVE Urine urobilinogen measurement by automated test strip (mass/volume) NORMAL NORMAL Urine leukocyte esterase detection by dipstick 3+ NEGATIVE Automated urine sediment erythrocyte count by microscopy (number/high power field) [HPF] NRG Automated urine sediment leukocyte count by microscopy (number/high power field ) [HPF] NRG Bacteria detection in urine sediment by light microscopy FEW NRG Squamous epithelial cells detection in urine sediment by light microscopy 10-25 NRG Crystals detection in urine sediment by light microscopy NONE NRG Casts detection in urine sediment by light microscopy NONE NRG Mucus detection in urine sediment by light microscopy NEGATIVE NRG Complete urinalysis with reflex to culture YES NRG Urine Trichomonas species detection by light microscopy LARGE NRG Urine drug screening test - 07/06/17 12:15 Urine phencyclidine detection by screening method NEGATIVE NEGATIVE Urine benzodiazepines detection by screening method NEGATIVE NEGATIVE Urine cocaine detection NEGATIVE NEGATIVE Urine amphetamines detection by screening method NEGATIVE NEGATIVE Urine methamphetamine detection by screening method NEGATIVE NEGATIVE Urine cannabinoids detection by screening method NEGATIVE NEGATIVE Urine opiates detection by screening method NEGATIVE NEGATIVE Urine barbiturates detection NEGATIVE NEGATIVE Screening urine tricyclic antidepressants detection NEGATIVE NEGATIVE Urine methadone detection by screening method NEGATIVE NEGATIVE Urine oxycodone detection NEGATIVE NEGATIVE Urine propoxyphene detection NEGATIVE NEGATIVE Bacterial urine culture - 07/06/17 12:15 URINE CULTURE RESULTS 10,000/ML - 100,000/ML NRG Encounters ACCT No. Visit Date/Time Discharge Status Pt. Type Provider Facility Loc./Unit Complaint [id number] 06/08/2013 14:23:00 06/08/2013 23:59:59 CLS Outpatient GHADA KABA DO [id number] 04/26/2013 11:10:00 04/26/2013 23:59:59 CLS Outpatient SONIDO SHARRON HANSON [id number] 06/29/2017 17:58:00 06/29/2017 19:29:00 DIS Outpatient MICHELLE ALANIS VALERIA Fowler [facility] WSo LEAKING FLUID/ CONTRACTIONS [id number] 06/26/2017 09:35:00 06/26/2017 10:24:00 DIS Outpatient MICHELLE DO VALERIA Fowler [facility] WSo CONTRACTIONS [id number] 06/25/2017 13:51:00 06/25/2017 23:59:59 CLS Outpatient GILA GREWAL DO Brayden [facility] LABOR [id number] 06/25/2017 19:27:00 06/25/2017 21:25:00 DIS Outpatient VALERIA MARTINEZ DO [facility] LOW BACK PAIN, DECREASED MOVEMENT [id number] 06/24/2017 10:45:00 06/24/2017 17:50:00 DIS Outpatient GILA GREWAL DO Brayden [facility] BIOPHYSICAL PROFILE [id number] 06/05/2017 14:03:00 06/06/2017 10:56:00 DIS Inpatient VALERIA MARTINEZ DO [facility] LDRP NAUSEA,VOMITING, DIARRHEA [id number] 05/28/2017 20:34:00 05/28/2017 22:00:00 DIS Outpatient VALERIA MARTINEZ DO [facility] BLOOD IN STOOL; CRAMPING;BACK PAIN [id number] 05/13/2017 19:30:00 05/13/2017 20:55:00 DIS Outpatient HELIO GREGORY, MICHAEL Wood [facility] CONTRACTIONS [id number] 12/25/2016 14:09:00 12/25/2016 23:59:59 CLS Outpatient ANGEL GREGORY, RAJESH Gaines [facility] RAD DATING,9 WKS GESTATION Z3A.[id number] 11/25/2016 15:13:00 11/25/2016 16:58:00 DIS Emergency SIMON CROOK DO [facility] ER CP [id number] 07/10/2016 12:29:00 07/10/2016 16:36:00 DIS Emergency ALYSE CHAN [facility] ER KIDNEY PAIN [id number] 06/16/2016 23:08:00 06/17/2016 00:14:00 DIS Emergency SHARRON MELO DO [facility] ER SORE THROAT,BODY ACHE, FEVER [id number] 06/02/2016 00:21:00 06/02/2016 02:26:00 DIS Emergency MICHAELA RAPP MD [facility] ER BACK PAIN [id number] 04/09/2016 11:41:00 04/09/2016 13:00:00 DIS Emergency STEPHANIE SIMMONS [facility] ER COUGH/CONGESTION RUNNY NOSE [id number] 02/01/2016 12:21:00 02/01/2016 23:59:59 CLS Preadmit GILA GREWAL DO [id number] 01/18/2016 06:03:00 01/21/2016 16:50:00 DIS Inpatient GILA GREWAL DO [facility] LDRP PREVIOUS SECTION [id number] 01/16/2016 12:44:00 01/16/2016 13:30:00 DIS Outpatient GILA GREWAL DO [facility] PREOP PREVIOUS SECTION [id number] 01/13/2016 14:16:00 01/13/2016 15:47:00 DIS Outpatient GILA GREWAL DO [facility] ACUTE K ANTIBODIES, ACUTE D ANTIBODIES [id number] 12/31/2015 02:53:00 12/31/2015 04:47:00 DIS Outpatient HELIO GREGORY, MICHAEL Wood [facility] BODYACHE FROM FALL , N/V [id number] 12/31/2015 02:10:00 12/31/2015 02:46:00 DIS Emergency MASOOD GREGORY, KEO Kelly [facility] ER 36 WKS PREG, N/V, BODY ACHES FROM FALL [id number] 12/02/2015 22:08:00 12/02/2015 23:45:00 DIS Outpatient DEMARCO GREGORY, TYRONE Arriaga [facility] CONTRACTIONS [id number] 08/30/2015 08:33:00 08/30/2015 10:06:00 DIS Emergency MARVIN HANSON MD [facility] ER VOMITING/DIARRHEA 19 WKS PREG [id number] 08/18/2015 07:17:00 08/18/2015 10:12:00 DIS Emergency MOO GREGORY, ANGELI Fowler [facility] ER SEVERE LOWER ABD PAIN AT 17 WEEKS [id number] 07/23/2015 23:15:00 07/25/2015 09:15:00 DIS Inpatient GILA GREWAL DO [facility] LDRP GENERALIZED ABD PAIN,UTI ,[place] [id number] 07/20/2015 12:50:00 07/22/2015 09:25:00 DIS Inpatient GILA GREWAL DO [facility] LDRP PYELONEPHRITIS WITH PERSISTENT VOMITING [id number] 07/17/2015 20:53:00 07/18/2015 00:52:00 DIS Emergency ARMAANSIMON Pond DO [facility] ER ABD PAIN/11 WEEKS PREG [id number] 06/22/2015 23:02:00 06/23/2015 02:34:00 DIS Emergency MICHAELA RAPP MD [facility] ER VOMITING;9 WKS PREG [id number] 05/10/2015 13:03:00 05/10/2015 23:59:59 CLS Outpatient SAHARA GREGORY, DESHAUN Fernandez [facility] RAD INJ LUMBAR SPINE PAIN [id number] 02/17/2015 17:20:00 02/17/2015 17:51:00 DIS Emergency SHARRON MELO DO [facility] ER SORE THROAT/CHEST CONGESTION [id number] 06/22/2014 13:02:00 06/23/2014 17:49:00 DIS Outpatient MINE HURLEY MD [facility] SDC CHOLELITHIASIS [id number] 06/21/2014 09:04:00 06/21/2014 23:59:59 CLS Outpatient GILA GREWAL DO [facility] RAD ABD PAIN, GALL STONES [id number] 06/17/2013 13:43:00 06/17/2013 23:59:59 CLS Outpatient YOGI STILES APRN [facility] RAD DATING [id number] 11/02/2012 09:00:00 11/05/2012 12:30:00 DIS Inpatient GILA GREWAL DO [facility] WS REPEAT SECTION [id number] 07/06/2017 12:56:00 Document Registration [id number] 04/09/2017 05:25:00 Document Registration [id number] 04/09/2017 05:25:00 Document Registration [id number] 04/09/2017 05:11:00 Document Registration [id number] 04/09/2017 05:11:00 Document Registration [id number] 04/09/2017 05:11:00 Document Registration [id number] 04/09/2017 05:11:00 Document Registration [id number] 04/09/2017 05:11:00 Document Registration [id number] 04/09/2017 05:11:00 Document Registration [id number] 04/09/2017 05:11:00 Document Registration [id number] 04/09/2017 05:11:00 Document Registration [id number] 04/09/2017 05:11:00 Document Registration [id number] 04/09/2017 05:11:00 Document Registration [id number] 04/09/2017 05:11:00 Document Registration [id number] 04/09/2017 05:11:00 Document Registration [id number] 04/09/2017 05:11:00 Document Registration [id number] 04/09/2017 05:11:00 Document Registration [id number] 04/09/2017 05:11:00 Document Registration [id number] 04/09/2017 05:11:00 Document Registration [id number] 04/09/2017 05:11:00 Document Registration [id number] 04/09/2017 05:11:00 Document Registration [id number] 02/17/2015 17:19:00 Document Registration [id number] 09/17/2014 20:25:00 Document Registration [id number] 10/29/2012 11:38:00 Document Registration [id number] 10/26/2012 13:00:00 Document Registration [id number] 10/13/2012 19:51:00 Document Registration [id number] 10/09/2012 13:51:00 Document Registration [id number] 07:40:00 Document Registration [id number] 08/18/2012 10:40:00 Document Registration [id number] 12/10/2011 12:49:00 Document Registration [id number] 05/26/2011 15:07:00 Document Registration [id number] 03/24/2011 21:34:00 Document Registration [id number] 10/22/2010 10:06:00 Document Registration [id number] 10/21/2010 15:02:00 Document Registration [id number] 03/21/2009 05:47:00 Document Registration [id number] 03/14/2009 10:11:00 Document Registration [id number] 01/21/2009 09:35:00 Document Registration [id number] 01/17/2009 16:20:00 Document Registration [id number] 08/25/2007 06:05:00 Document Registration [id number] 08/06/2007 21:31:00 Document Registration [id number] 07/27/2007 18:45:00 Document Registration [id number] 06/09/2007 11:51:00 Document Registration [id number] 06/04/2007 13:13:00 Document Registration [id number] 05/19/2007 11:22:00 Document Registration [id number] 04/13/2017 08:12:28 04/13/2017 23:59:59 CLS Outpatient [facility] [id number] 04/13/2017 07:52:23 04/13/2017 23:59:59 CLS Outpatient DALIA PRADO [facility] [id number] 04/13/2017 07:51:17 04/13/2017 23:59:59 CLS Outpatient [facility] [id number] 03/19/2017 08:05:50 03/19/2017 23:59:59 CLS Outpatient [facility] [id number] 03/19/2017 07:55:22 03/19/2017 23:59:59 CLS Outpatient [facility] [id number] 03/19/2017 07:55:09 03/19/2017 23:59:59 CLS Outpatient DIONE SCHROEDER [facility] [id number] 02/18/2017 09:15:56 02/18/2017 23:59:59 CLS Outpatient [facility] [id number] 02/18/2017 08:26:14 02/18/2017 23:59:59 [id number] 02/18/2017 08:25:53 02/18/2017 23:59:59 CLS Outpatient DALIA PRADO [facility] [id number] 12/24/2015 13:16:42 12/24/2015 23:59:59 CLS [facility] [id number] 12/24/2015 12:53:08 12/24/2015 23:59:59 CLS Outpatient MARIELLA WEST [facility] [id number] 12/13/2015 10:39:10 12/13/2015 23:59:59 CLS Outpatient [facility] [id number] 12/13/2015 10:23:49 12/13/2015 23:59:59 CLS Outpatient MARIELLA WEST [facility] [id number] 11/01/2015 13:11:30 11/01/2015 23:59:59 CLS Outpatient [facility] [id number] 11/01/2015 12:41:57 11/01/2015 23:59:59 CLS Outpatient MARIELLA WEST [facility] [id number] 10/11/2015 17:56:07 Document Registration [id number] 10/11/2015 16:04:34 Document Registration [id number] 10/11/2015 15:00:48 Document Registration [id number] 10/11/2015 14:58:43 Document Registration [id number] 10/27/2013 09:32:46 Document Registration [id number] 10/13/2013 10:13:31 Document Registration [id number] 09/29/2013 07:43:16 Document Registration [id number] 09/15/2013 10:42:33 Document Registration [id number] 09/01/2013 10:44:59 Document Registration [id number] 08/04/2013 11:16:36 Document Registration
[2017-07-14] MEDS ORDERED: fentaNYL INJECTION 100 MCG/2 ML AMP ONE (14:44)
[2017-07-14] MEDS ORDERED: OXYTOCIN/NORMAL SALINE 0 ML IV ONE (14:44)
[2017-07-14] MEDS ORDERED: CATHETER FLUSH 10 ML SYR IV PRN (14:45)
[2017-07-14] MEDS ORDERED: ceFAZolin 2 GM/50 ML NS 50 ML IV ONE (14:45)
[2017-07-14] MEDS ORDERED: FAMOTIDINE 20MG/2ML IV (PEPCID) IV ONE (14:45)
[2017-07-14] MEDS ORDERED: OXYTOCIN/NORMAL SALINE 500 ML IV ONE ×2 (14:45→18:19)
[2017-07-14] MEDS ORDERED: METOCLOPRAMIDE INJ 10 MG/2 ML (REGLAN) IV ONE (14:45)
[2017-07-14] MEDS ORDERED: CITRIC ACID/SOB CIT (BICITRA) 30 ML UDC PO ONE (14:45)
[2017-07-14 14:53] LABS: BASOPHILS % (AUTO) 0 % (0-10); EOSINOPHILS # (AUTO) 0.1 10^3/uL (0.0-0.3); EOSINOPHILS % (AUTO) 1 % (0-10); HEMATOCRIT 32 % (35-52); HEMOGLOBIN 10.7 G/DL (11.5-16.0); LYMPHOCYTES # (AUTO) 1.7 X 10^3 (1.0-4.0); LYMPHOCYTES % (AUTO) 17 % (12-44); MEAN CORPUSCULAR HEMOGLOBIN 27 PG (25-34); MEAN CORPUSCULAR HGB CONC 33 G/DL (32-36); MEAN CORPUSCULAR VOLUME 82 FL (80-99); MEAN PLATELET VOLUME 10.6 FL (7.4-10.4); MONOCYTES # (AUTO) 0.5 X 10^3 (0.0-1.0); MONOCYTES % (AUTO) 5 % (0-12); NEUTROPHILS # (AUTO) 7.6 X 10^3 (1.8-7.8); NEUTROPHILS % (AUTO) 78 % (42-75); PLATELET COUNT 251 10^3/uL (130-400); RED BLOOD COUNT 3.94 10^6/uL (4.35-5.85); RED CELL DISTRIBUTION WIDTH 14.3 % (10.0-14.5); WHITE BLOOD COUNT 9.8 10^3/uL (4.3-11.0)
[2017-07-14] MEDS ORDERED: NITR-65 PO (15:03)
[2017-07-14 15:12] LABS: AMPHETAMINE SCREEN, URINE NEGATIVE (NEGATIVE); BARBITURATE SCREEN URINE NEGATIVE (NEGATIVE); BENZODIAZEPINES SCREEN URINE NEGATIVE (NEGATIVE); CANNABINOID SCREEN, URINE NEGATIVE (NEGATIVE); COCAINE SCREEN URINE NEGATIVE (NEGATIVE); METHADONE STAT NEGATIVE (NEGATIVE); METHAMPHETAMINE SCREEN URINE S POSITIVE (NEGATIVE); OPIATE SCREEN URINE NEGATIVE (NEGATIVE); OXYCODONE STAT NEGATIVE (NEGATIVE); PROPOXYPHENE STAT NEGATIVE (NEGATIVE); TRICYCLIC ANTIDEPRESSANTS SCRE NEGATIVE (NEGATIVE)
[2017-07-14] MEDS ORDERED: NALOXONE 0.4 MG/ML 1 ML (NARCAN) VIAL IV PRN (16:00)
[2017-07-14] MEDS ORDERED: ONDANSETRON 4 MG/2 ML (SDV) Z0FRAN IV PRN (16:00)
[2017-07-14] MEDS ORDERED: diphenhydrAMINE 50 MG/ML INJ (BENADRYL) IV PRN (16:00)
[2017-07-14] MEDS ORDERED: KETOROLAC 30 MG/ML VIAL ONE (16:01)
[2017-07-14] MEDS ORDERED: ONDANSETRON 4 MG/2 ML (SDV) Z0FRAN ONE (16:15)
[2017-07-14] MEDS ORDERED: INFLUENZA TRIvalent 2017-2018 0.5 ML/45 MCG SYR IM ONE (16:15)
[2017-07-14] MEDS ORDERED: D5 LR IV SOLUTION 1,000 ML IV SCH (16:30)
[2017-07-14] MEDS ORDERED: ONDANSETRON 4 MG/2 ML (SDV) Z0FRAN IVP PRN (16:30)
[2017-07-14] MEDS ORDERED: HYDROmorphone (DILAUDID) 2 MG/ML VIAL IVP PRN (16:30)
[2017-07-14] MEDS ORDERED: TETANUS,DIPTH,PERTUSS P/F (BOOSTRIX) 0.5 ML VIAL IM SCH (16:30)
[2017-07-14] MEDS ORDERED: MEASLES,MUMPS,RUBELLA 1 EA INJ SC SCH (16:30)
--- NOTE | 2017-07-14 16:44 | Cesarean Section Operative ---
Procedure Procedure Note Pre-operative Diagnosis: Beryl Elizabeth is a 31 /Para 8 /5 ,Gestational Age 38 weeks with non reassuring testing (spontaneous decelerations), previous section, G BS +, recurrent UTI, history of drug usage, abnormal maternal antibodies, Rh - with isoimmunization, desires to reduce risk of ovarian cancer with family history Post-operative Diagnosis: same, true knot in cord Procedure: Repeat low transverse section Physician: GILA GREWAL Estimated blood loss: 600 mL Disposition: stable Findings: Viable female , Apgars 7/7/8, weight 6#5oz, intact placenta, 3vc with true knot, normal appearing uterus, tubes, and ovaries. Indications:Beryl beal . 30 /Para 8 /5 ,Gestational Age 38 weeks with non reassuring testing (spontaneous decelerations), previous section, G BS +, recurrent UTI, history of drug usage, abnormal maternal antibodies, Rh - with isoimmunization, desires to reduce risk of ovarian cancer with family history. Presenting for repeat section and risk reducing salpingectomy. Procedure Details: The patient was seen in pre-op and the procedure was discussed with the patient in full, including the risks, benefits, and alternatives. All questions were answered. The patient was taken to the operating room and a time out was performed, verifying patient and procedure. After spinal anesthesia was placed by our anesthesia colleagues, the patient was placed in the dorsal supine with leftward tilt for uterine displacement.~ Her abdomen was then prepped and draped in the typical sterile fashion. A Pfannenstiel skin incision was made using a scalpel and carried down through the underlying fascia. The fascia was incised in the midline and tented up using Lore clamps. On both the inferior and superior fascia side the rectus muscle was dissected off bluntly and sharply using Garcia scissors. The peritoneum was identified and entered bluntly in the midline. The muscles were scarred together in the midline, but I could enter this directly into the peritoneal cavity. This was then stretched laterally using manual strength. After entering the abdominal cavity and confirming lack of intraperitoneal adhesions, a large Alfredo retractor was placed and the lower uterine segment was visualized. There was bladder scarring over the lower uterine segment. A bladder flap was created with the use of Metzenbaum scissors.~ The center of the lower uterine segment was very thin and I entered this with Metzenbaum scissors. I then was able to extend this laterally. Amniotomy was performed with an Allis clamp with return of clear fluid. The 's head was grasped and brought to the level of the incision. The infant was in OP presentation. The silastic was placed on the vertex to assist in delivery of the head. Fundal pressure was applied and was delivered without difficulty. Mouth and nares were suctioned with bulb suction. The infant was vigorous and had spontaneous cry. After the umbilical cord was clamped and cut, the was handed off to the pediatric staff. A sample of cord blood was then obtained. There was a true knot noted. The placenta was delivered intact via uterine massage. The uterus was cleared of all clots and debris. The uterine incision was closed using 0 Vicryl in a running locked fashion. A second imbricated layer was placed using 0 Vicryl in a running fashion as well. The bilateral tubes and ovaries appeared normal. A salpingectomy was now performed bilaterally. I elevated each tube with Huntingdon clamps and then incised the mesosalpinx with the Bovie cautery. I then used the LigaSure device to clamp and ligate across the mesosalpinx and up to the cornu. I now clamped across the cornu and transected. There was good hemostasis. The abdominal gutters were cleared of all clots and debris. A final check of the uterine incision showed it to be hemostatic. The peritoneum was closed using 3-0 Vicryl in a running fashion. The fascia was closed with 0 Vicryl in a running fashion. The subcutaneous space was hemostatic, and irrigated. The subcutaneous space was closed with 3-0 Vicryl in several single interrupted stitches. The skin was then closed using 4-0 Monocryl in a running subcuticular fashion. The skin edges were reapproximated together and were hemostatic. A pressure dressing was applied. All sponge, lap and needle counts were correct at the end of the procedure per nursing. Vitals - Labs Vital Signs - I&O Vital Signs Date Time Temp Pulse Resp B/P (MAP) Pulse Ox O2 Delivery O2 Flow Rate FiO2 07/14/17 15:10 07/14/17 15:00 82 18 145/83 (103) 07/14/17 14:30 99.4 93 18 120/75 (90) Labs Laboratory Tests 07/14/17 14:15: Urine Opiates Screen NEGATIVE, Urine Oxycodone Screen NEGATIVE, Urine Methadone Screen NEGATIVE, Urine Propoxyphene Screen NEGATIVE, Urine Barbiturates Screen NEGATIVE, Ur Tricyclic Antidepressants Screen NEGATIVE, Urine Phencyclidine Screen NEGATIVE, Urine Amphetamines Screen NEGATIVE, Urine Methamphetamines Screen POSITIVEH, Urine Benzodiazepines Screen NEGATIVE, Urine Cocaine Screen NEGATIVE, Urine Cannabinoids Screen NEGATIVE 07/14/17 14:30: White Blood Count 9.8, Red Blood Count 3.94L, Hemoglobin 10.7L, Hematocrit 32L, Mean Corpuscular Volume 82, Mean Corpuscular Hemoglobin 27, Mean Corpuscular Hemoglobin Concent 33, Red Cell Distribution Width 14.3, Platelet Count 251, Mean Platelet Volume 10.6H, Neutrophils (%) (Auto) 78H, Lymphocytes (%) (Auto) 17, Monocytes (%) (Auto) 5, Eosinophils (%) (Auto) 1, Basophils (%) (Auto) 0, Neutrophils # (Auto) 7.6, Lymphocytes # (Auto) 1.7, Monocytes # (Auto) 0.5, Eosinophils # (Auto) 0.1, Basophils # (Auto) 0.0 GILA GREWAL DO Jul 14, 2017 16:44
[2017-07-14] MEDS: KETOROLAC 30 MG/ML VIAL IVP SCH ×2 (16:51→23:10)
[2017-07-14] MEDS ORDERED: METHYLERGONOVINE 0.2 MG/ML (METHERGINE) AMP ONE (18:25)
[2017-07-14] MEDS ORDERED: METHYLERGONOVINE 0.2 MG/ML (METHERGINE) AMP IM ONE (18:45)
[2017-07-14] MEDS ORDERED: OXYTOCIN/NORMAL SALINE 500 ML IV SCH (18:45)
[2017-07-14] MEDS ORDERED: MISOPROSTOL 200 MCG (CYTOTEC) TABLET PR ONE ×2 (19:15→21:45)
[2017-07-14] MEDS ORDERED: PROMETHAZINE/DM SYRUP (PHENERGDAN DM) 5 ML UDC PO PRN (19:15)
[2017-07-14] MEDS: HYDROcodone/APAP 10 MG/325 MG (LORTAB) TAB PO PRN (19:44)
[2017-07-14] MEDS ORDERED: guaiFENesin/DM (ROBITUSSIN DM) 10 ML UDC PO PRN (20:45)
[2017-07-14] MEDS: guaiFENesin/DM (ROBITUSSIN DM) 10 ML UDC PO PRN (21:15)
[2017-07-14] MEDS ORDERED: CATHETER FLUSH 10 ML SYR IV SCH (22:00)
[2017-07-14] MEDS: DOCUSATE SODIUM 100 MG (COLACE) CAP PO SCH (23:10)
[2017-07-15 04:00] VITALS: BP 132/73
[2017-07-15] MEDS: HYDROcodone/APAP 10 MG/325 MG (LORTAB) TAB PO PRN ×4 (04:22→22:02)
[2017-07-15] MEDS: guaiFENesin/DM (ROBITUSSIN DM) 10 ML UDC PO PRN (04:23)
[2017-07-15] MEDS: KETOROLAC 30 MG/ML VIAL IVP SCH ×2 (04:25→09:36)
[2017-07-15 05:19] LABS: BASOPHILS % (AUTO) 0 % (0-10); EOSINOPHILS # (AUTO) 0.1 10^3/uL (0.0-0.3); EOSINOPHILS % (AUTO) 1 % (0-10); HEMATOCRIT 25 % (35-52); HEMOGLOBIN 7.8 G/DL (11.5-16.0); LYMPHOCYTES # (AUTO) 1.5 X 10^3 (1.0-4.0); LYMPHOCYTES % (AUTO) 15 % (12-44); MEAN CORPUSCULAR HEMOGLOBIN 26 PG (25-34); MEAN CORPUSCULAR HGB CONC 32 G/DL (32-36); MEAN CORPUSCULAR VOLUME 84 FL (80-99); MEAN PLATELET VOLUME 10.1 FL (7.4-10.4); MONOCYTES # (AUTO) 0.5 X 10^3 (0.0-1.0); MONOCYTES % (AUTO) 5 % (0-12); NEUTROPHILS # (AUTO) 8.1 X 10^3 (1.8-7.8); NEUTROPHILS % (AUTO) 79 % (42-75); PLATELET COUNT 200 10^3/uL (130-400); RED BLOOD COUNT 2.97 10^6/uL (4.35-5.85); RED CELL DISTRIBUTION WIDTH 14.1 % (10.0-14.5); WHITE BLOOD COUNT 10.3 10^3/uL (4.3-11.0)
[2017-07-15 08:00] VITALS: BP 119/63
[2017-07-15] MEDS ORDERED: IBUPROFEN 800 MG (MOTRIN) TAB PO ONE (09:56)
[2017-07-15] MEDS: DOCUSATE SODIUM 100 MG (COLACE) CAP PO SCH ×2 (10:01→22:02)
[2017-07-15] MEDS ORDERED: IBUPROFEN 600 MG (MOTRIN) TAB PO ONE (10:02)
[2017-07-15] MEDS: IBUPROFEN 600 MG (MOTRIN) TAB PO SCH ×3 (10:04→23:16)
[2017-07-15 12:00] VITALS: BP 122/60
--- NOTE | 2017-07-15 12:29 | Anesthesia-Regional Post-Op ---
Regional Patient Condition Mental Status: Alert, Oriented x3 Circulation: Same as Pre-Op Headache: Absent Sensation: Full Recovery Motor Block: Absent Post Op Complications Complications None Follow Up Care/Instructions Patient Instructions None needed. Anesthesia/Patient Condition Patient is doing well, no complaints, stable vital signs, no apparent adverse anesthesia problems. No complications reported per nursing. NIRALI APONTE CRNA Jul 15, 2017 12:29
--- NOTE | 2017-07-15 14:50 | Postpartum Progress Note ---
Post Op Post-operative Day #1 s/p RLTCS, non reassuring tracing, GBS +, previous cs x 5, rr salpingectomy, history of drug abuse with + drug screen on admission. Had increase in bleeding last night following the delivery. Given IV pitocin x 60 mu, methergine 0.2 mg x 1 and misoprostel 800 mcg rectally. doing better today and vitals stable. Requesting IV out. Wants to go off the floor. Have discussed that she can leave the floor but not with IV in place. And do not give permission to smoke Subjective: Patient is without complaints. Ambulating, voiding after Joseph removed. Tolerating a regular diet without nausea or vomiting. Normal lochia. Pain is well controlled with oral pain medications. Passing flatus. breast feeding. Objective: Vital Sign - Last 12Hours 07/15/17 07/15/17 07/15/17 04:00 08:00 12:00 Temp 98.2 97.8 98.0 Pulse 81 98 96 Resp 18 16 18 B/P (MAP) 132/73 (92) 119/63 (81) 122/60 (80) Pulse Ox 98 99 98 O2 Delivery Room Air Room Air Room Air Intake and Output 07/14/17 23:59 Intake Total 2300 ml Output Total 1600 ml Balance 700 ml Laboratory Tests Test 07/15/17 05:10 Range/Units White Blood Count 10.3 4.3-11.0 10^3/uL Red Blood Count 2.97 L 4.35-5.85 10^6/uL Hemoglobin 7.8 #L 11.5-16.0 G/DL Hematocrit 25 L 35-52 % Mean Corpuscular Volume 84 80-99 FL Mean Corpuscular Hemoglobin 26 25-34 PG Mean Corpuscular Hemoglobin Concent 32 32-36 G/DL Red Cell Distribution Width 14.1 10.0-14.5 % Platelet Count 200 130-400 10^3/uL Mean Platelet Volume 10.1 7.4-10.4 FL Neutrophils (%) (Auto) 79 H 42-75 % Lymphocytes (%) (Auto) 15 12-44 % Monocytes (%) (Auto) 5 0-12 % Eosinophils (%) (Auto) 1 0-10 % Basophils (%) (Auto) 0 0-10 % Neutrophils # (Auto) 8.1 H 1.8-7.8 X 10^3 Lymphocytes # (Auto) 1.5 1.0-4.0 X 10^3 Monocytes # (Auto) 0.5 0.0-1.0 X 10^3 Eosinophils # (Auto) 0.1 0.0-0.3 10^3/uL Basophils # (Auto) 0.0 0.0-0.1 10^3/uL Physical Exam: General - Alert and oriented, no apparent distress Abdomen - Soft, appropriately tender to palpation, non-distended, fundus firm at umbilicus Incision - clean, dry and intact; no erythema or induration, no drainage Extremities - no edema, negative Dorian bilaterally [] Assessment: 1. post-operative day # 1, status post RLTCS. Recovering well, hemodynamically stable 2. Acute blood loss anemia due to post hemorrhage, now stable Plan: Routine post-operative care. Encourage breast feeding. Encourage ambulation. VTE prophylaxis: SCDs. Ferrous sulfate supplementation. Plan for discharge tomorrow Addendum - admission UDS + methamphetamine. Patient adamantly denies taking. Urine sent out for confirmation. Meconium on baby awaiting collection Vitals - Labs Vital Signs - I&O Vital Signs Date Time Temp Pulse Resp B/P (MAP) Pulse Ox O2 Delivery O2 Flow Rate FiO2 07/15/17 12:00 98.0 96 18 122/60 (80) 98 Room Air 07/15/17 08:00 97.8 98 16 119/63 (81) 99 Room Air 07/15/17 04:00 98.2 81 18 132/73 (92) 98 Room Air 07/14/17 23:00 98.5 94 20 140/81 (100) 98 Room Air 07/14/17 19:55 Room Air 07/14/17 19:30 98.1 73 20 136/88 (104) 98 Room Air 07/14/17 18:30 83 20 136/88 (104) 100 Room Air 07/14/17 18:00 73 20 126/85 (99) 100 Room Air 07/14/17 17:29 97.8 71 20 119/69 (86) 100 Room Air 07/14/17 15:10 07/14/17 15:00 82 18 145/83 (103) I & O 07/15/17 06:59 Intake Total 6600 ml Output Total 2600 ml Balance 4000 ml Labs Laboratory Tests 07/15/17 05:10: White Blood Count 10.3, Red Blood Count 2.97L, Hemoglobin 7.8#L, Hematocrit 25L , Mean Corpuscular Volume 84, Mean Corpuscular Hemoglobin 26, Mean Corpuscular Hemoglobin Concent 32, Red Cell Distribution Width 14.1, Platelet Count 200, Mean Platelet Volume 10.1, Neutrophils (%) (Auto) 79H, Lymphocytes (%) (Auto) 15 , Monocytes (%) (Auto) 5, Eosinophils (%) (Auto) 1, Basophils (%) (Auto) 0, Neutrophils # (Auto) 8.1H, Lymphocytes # (Auto) 1.5, Monocytes # (Auto) 0.5, Eosinophils # (Auto) 0.1, Basophils # (Auto) 0.0 GILA GREWAL DO Jul 15, 2017 14:50
[2017-07-15 16:00] VITALS: BP 126/78
[2017-07-15] MEDS: IRON POLYSAC 150 MG CAP (NIFEREX) PO SCH (17:06)
[2017-07-15] MEDS ORDERED: ALPRAZolam 0.5 MG (XANAX) TAB PO PRN (17:45)
[2017-07-15 22:00] VITALS: BP 122/80
[2017-07-16] MEDS: HYDROcodone/APAP 10 MG/325 MG (LORTAB) TAB PO PRN ×2 (02:21→09:22)
[2017-07-16] MEDS: IBUPROFEN 600 MG (MOTRIN) TAB PO SCH (05:07)
[2017-07-16 05:08] VITALS: BP 115/77
[2017-07-16 06:12] LABS: BASOPHILS % (AUTO) 0 % (0-10); EOSINOPHILS # (AUTO) 0.2 10^3/uL (0.0-0.3); EOSINOPHILS % (AUTO) 2 % (0-10); HEMATOCRIT 24 % (35-52); HEMOGLOBIN 7.7 G/DL (11.5-16.0); LYMPHOCYTES # (AUTO) 1.7 X 10^3 (1.0-4.0); LYMPHOCYTES % (AUTO) 17 % (12-44); MEAN CORPUSCULAR HEMOGLOBIN 27 PG (25-34); MEAN CORPUSCULAR HGB CONC 32 G/DL (32-36); MEAN CORPUSCULAR VOLUME 84 FL (80-99); MEAN PLATELET VOLUME 10.5 FL (7.4-10.4); MONOCYTES # (AUTO) 0.6 X 10^3 (0.0-1.0); MONOCYTES % (AUTO) 6 % (0-12); NEUTROPHILS # (AUTO) 7.8 X 10^3 (1.8-7.8); NEUTROPHILS % (AUTO) 75 % (42-75); PLATELET COUNT 246 10^3/uL (130-400); RED BLOOD COUNT 2.87 10^6/uL (4.35-5.85); RED CELL DISTRIBUTION WIDTH 14.4 % (10.0-14.5); WHITE BLOOD COUNT 10.3 10^3/uL (4.3-11.0)
--- NOTE | 2017-07-16 08:56 | Postpartum Progress Note ---
Post Op Post-operative Day #2 s/p RLTCS Subjective: Patient is without complaints. Ambulating, voiding after delarosa removed. Tolerating a regular diet without nausea or vomiting. Normal lochia, no clots. Pain is well controlled with oral pain medications. Passing flatus. pumping. Baby transferred to [place] last night. Objective: Laboratory Tests Test 07/16/17 05:25 Range/Units White Blood Count 10.3 4.3-11.0 10^3/uL Red Blood Count 2.87 L 4.35-5.85 10^6/uL Hemoglobin 7.7 L 11.5-16.0 G/DL Hematocrit 24 L 35-52 % Mean Corpuscular Volume 84 80-99 FL Mean Corpuscular Hemoglobin 27 25-34 PG Mean Corpuscular Hemoglobin Concent 32 32-36 G/DL Red Cell Distribution Width 14.4 10.0-14.5 % Platelet Count 246 130-400 10^3/uL Mean Platelet Volume 10.5 H 7.4-10.4 FL Neutrophils (%) (Auto) 75 42-75 % Lymphocytes (%) (Auto) 17 12-44 % Monocytes (%) (Auto) 6 0-12 % Eosinophils (%) (Auto) 2 0-10 % Basophils (%) (Auto) 0 0-10 % Neutrophils # (Auto) 7.8 1.8-7.8 X 10^3 Lymphocytes # (Auto) 1.7 1.0-4.0 X 10^3 Monocytes # (Auto) 0.6 0.0-1.0 X 10^3 Eosinophils # (Auto) 0.2 0.0-0.3 10^3/uL Basophils # (Auto) 0.0 0.0-0.1 10^3/uL Vital Sign - Last 12Hours 07/15/17 07/16/17 22:00 05:08 Temp 97.6 97.9 Pulse 94 94 Resp 18 18 B/P (MAP) 122/80 (94) 115/77 (90) Pulse Ox 100 97 O2 Delivery Room Air Room Air Intake and Output 07/16/17 00:00 Intake Total 775 ml Output Total 900 ml Balance -125 ml Physical Exam: General - Alert and oriented, no apparent distress Abdomen - Soft, appropriately tender to palpation, non-distended, fundus firm at umbilicus Incision - clean, dry and intact; no erythema or induration, no drainage Extremities - no edema, negative Dorain's bilaterally Assessment: 1. post-operative day # 2, status post RLTCS. Recovering well, hemodynamically stable 2. Acute blood loss anemia - stable on iron Plan: Routine post-operative care. Encourage breast feeding. Encourage ambulation. VTE prophylaxis: SCDs. Ferrous sulfate supplementation. Plan for discharge today Await urine drug screen confirmatory test. Vitals - Labs Vital Signs - I&O Vital Signs Date Time Temp Pulse Resp B/P (MAP) Pulse Ox O2 Delivery O2 Flow Rate FiO2 07/16/17 05:08 97.9 94 18 115/77 (90) 97 Room Air 07/15/17 22:00 97.6 94 18 122/80 (94) 100 Room Air 07/15/17 16:00 97.6 88 18 126/78 (94) 99 Room Air 07/15/17 12:00 98.0 96 18 122/60 (80) 98 Room Air I & O 07/16/17 07:00 Intake Total 2875 ml Output Total 4100 ml Balance -1225 ml Labs Laboratory Tests 07/16/17 05:25: White Blood Count 10.3, Red Blood Count 2.87L, Hemoglobin 7.7L, Hematocrit 24L, Mean Corpuscular Volume 84, Mean Corpuscular Hemoglobin 27, Mean Corpuscular Hemoglobin Concent 32, Red Cell Distribution Width 14.4, Platelet Count 246, Mean Platelet Volume 10.5H, Neutrophils (%) (Auto) 75, Lymphocytes (%) (Auto) 17 , Monocytes (%) (Auto) 6, Eosinophils (%) (Auto) 2, Basophils (%) (Auto) 0, Neutrophils # (Auto) 7.8, Lymphocytes # (Auto) 1.7, Monocytes # (Auto) 0.6, Eosinophils # (Auto) 0.2, Basophils # (Auto) 0.0 GILA GREWAL DO Jul 16, 2017 08:56
[2017-07-16] MEDS ORDERED: GUAI5SYR PO (08:58)
[2017-07-16] MEDS ORDERED: DOCU100C37 PO (08:58)
[2017-07-16] MEDS ORDERED: HYDR-3820 PO (08:58)
[2017-07-16] MEDS ORDERED: IRON150C3 PO (08:58)
[2017-07-16] MEDS ORDERED: IBUP-1773 PO (08:58)
--- NOTE | 2017-07-16 09:01 | Discharge Inst-Women's Service ---
Discharge Inst-Women's Serv Depart Medication/Instructions New, Converted or Re-Newed RX: RX on Chart Final Diagnosis repeat section previous section non reassuring testing true knot in cord post hemorrhage acute blood loss anemia, antepartum anemia history of drug usage abnormal blood antibodies Rh - Consults/Follow Up Additional Follow Up: Yes (1 week and 6 weeks) Activity Activity: Activity as Tolerated Driving Instructions: No Driving for 1 Week NO SMOKING: NO SMOKING Nothing Inside Vagina: No Douching, No [place], No Tampons Diet Discharge Diet: No Restrictions Symptoms to Report to DrKaterina: Swelling Increased, Bleeding Excessive, Pain Increased, Fever Over 101 Degrees F, Vaginal Bleeding Increase, Cramps in Feet or Legs, Vaginal Discharge Foul For Any Problems or Questions: Contact Your Physician Skin/Wound Care Infection Signs and Symptoms: Increased Redness, Foul Odor of Wound, Increased Drainage, Skin Itchy or Has a Rash, Increased Swelling, Temperature Above 101 F Operative Area Clean and Dry: Keep Incision Clean/Dry Stitches/Rick/Dermabond: Dermabond Bathing Instructions: GILA Leo DO Jul 16, 2017 09:01
[2017-07-16 09:22] VITALS: BP 155/86
[2017-07-16] MEDS: IRON POLYSAC 150 MG CAP (NIFEREX) PO SCH (09:22)
[2017-07-16] MEDS: DOCUSATE SODIUM 100 MG (COLACE) CAP PO SCH (09:22)
[2017-07-16] MEDS ORDERED: INFLUENZA TRIvalent 2017-2018 0.5 ML/45 MCG SYR IM ONE (09:34)
== END 2017-07-16 09:45 | disposition home or self-care (01) | DRG 765 ==
LOC: LDRP 14:10
PROVIDERS: ADMIT Obstetrics & Gynecology; ATTEND Obstetrics & Gynecology
PROC: 0UT70ZZ Resection of Bilateral Fallopian Tubes, Open Approach (ICD-10-PCS; 2017-07-14)
PROC: 10D00Z1 Extraction of Products of Conception, Low, Open Approach (ICD-10-PCS; principal; 2017-07-14 15:11)
DX: O34.211 Maternal care for low transverse scar from previous cesarean delivery (principal); O76 Abnormality in fetal heart rate and rhythm complicating labor and delivery; O98.813 Other maternal infectious and parasitic diseases complicating pregnancy, third trimester; O36.0111 Maternal care for anti-D [Rh] antibodies, first trimester, fetus 1; O36.0931 Maternal care for other rhesus isoimmunization, third trimester, fetus 1; O69.2XX0 Labor and delivery complicated by other cord entanglement, with compression, not applicable or unspecified; O72.2 Delayed and secondary postpartum hemorrhage; O99.03 Anemia complicating the puerperium; D62 Acute posthemorrhagic anemia; O99.213 Obesity complicating pregnancy, third trimester; E66.9 Obesity, unspecified; Z68.41 Body mass index [BMI] 40.0-44.9, adult; O99.343 Other mental disorders complicating pregnancy, third trimester; F32.9 Major depressive disorder, single episode, unspecified; F41.9 Anxiety disorder, unspecified; F15.90 Other stimulant use, unspecified, uncomplicated; O99.333 Smoking (tobacco) complicating pregnancy, third trimester; F17.210 Nicotine dependence, cigarettes, uncomplicated; Z87.440 Personal history of urinary (tract) infections; Z87.898 Personal history of other specified conditions; Z80.41 Family history of malignant neoplasm of ovary; Z3A.38 38 weeks gestation of pregnancy; Z37.0 Single live birth; Z23 Encounter for immunization
CPT/HCPCS: 36415; 80306; 80307; 85025; 86850; 86900; 86901; 86902; 90715; 94664

== ENCOUNTER 2017-07-20 17:31 | Emergency (ER) | payer MEDICAID ==
[~2017-07-20] VITALS: Ht 157.5 cm; Wt 108.4 kg
[~2017-07-20 17:31] MED LIST changes: +DOCU100C37 PO; +GUAI5SYR PO; +HYDR-3820 PO; +IRON150C3 PO
--- OUTSIDE RECORDS SUMMARY | 2017-07-20 17:37 | XMS REPORT | Clinical Summary ---
Author Author [facility] Organization [facility] Address Unknown Phone Unavailable Care Team Providers Care Jewelry Estimator Name Role Phone PCP Unavailable Source Comments Some departments are not documenting in the electronic medical record. 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 UNIT REPAIRER Pulse 87 09/03/2015 1:49 PM REFRIGERATION UNIT REPAIRER Temperature - - Respiratory Rate - - Oxygen Saturation - - Inhaled Oxygen - - Concentration Weight 82.1 kg (181 lb) 09/03/2015 1:49 PM REFRIGERATION UNIT REPAIRER Height 157.5 cm (5' 2") 09/03/2015 1:49 PM REFRIGERATION UNIT REPAIRER Body Mass Index 33.11 09/03/2015 1:49 PM REFRIGERATION UNIT REPAIRER Plan of Treatment Health Maintenance Due Date Last Done Comments PHYSICAL (COMPREHENSIVE) 1993 EXAM PERTUSSIS VACCINE 1997 TETANUS VACCINE 09/17/2003 CERVICAL CANCER SCREENING 2016 INFLUENZA VACCINE 02/10/2017 Results Not on filefrom Last 3 Months
--- OUTSIDE RECORDS SUMMARY | 2017-07-20 17:37 | XMS REPORT | Encounter Summary ---
Author Author [facility] Organization [facility] Address Unknown Phone Unavailable Care Team Providers Care Product Development Manager Name Role Phone PCP Unavailable Encounter Details Date Type Department Care Team Description 05/05/2017 [facility] Link, [facility] [place], [place] Social History Tobacco Use Types Packs/Day Years Used Date Current Some Day Smoker Cigarettes 0.5 12 Smokeless Tobacco: Never Used Alcohol Use Drinks/Week oz/Week Comments No Sex Assigned at Date Recorded Not on file as of this encounter Plan of Treatment Not on fileas of this encounter Visit Diagnoses Not on filein this encounter
--- OUTSIDE RECORDS SUMMARY | 2017-07-20 17:37 | XMS REPORT | Encounter Summary ---
Author Author [facility] Organization [facility] Address Unknown Phone Unavailable Care Team Providers Care Vest Busheler Name Role Phone PCP Unavailable Encounter Details Date Type Department Care Team Description 06/08/2017 [facility] MULTIPLE TEST[facility] Link, [facility] Scan [place], [place] Social History Tobacco Use Types Packs/Day Years Used Date Current Some Day Smoker Cigarettes 0.5 12 Smokeless Tobacco: Never Used Alcohol Use Drinks/Week oz/Week Comments No Sex Assigned at Date Recorded Not on file as of this encounter Plan of Treatment Not on fileas of this encounter Visit Diagnoses Not on filein this encounter
--- OUTSIDE RECORDS SUMMARY | 2017-07-20 17:37 | XMS REPORT | Clinical Summary ---
Author Author [facility] Address Unknown Phone Unavailable Support Name Relationship [...] other high risk pregnancies, second trimester 02/18/2017 [place] isoimmunization during in second trimester, not applicable or unspecified fetus Prior poor obstetrical history, antepartum, second trimester 02/18/2017 Maternal obesity, antepartum, second trimester 02/18/2017 Currently Estimated Date of Delivery Comments Yes 07/28/2017 Based on Ultrasound Resolved Problems Problem Noted Date Resolved Date 23 weeks gestation of 10/11/2015 02/18/2017 Anti-D antibodies present in , unspecified trimester, other fetus 10/10/2015 02/18/2017 [place] isoimmunization during , unspecified trimester, other fetus [...] Scan 05/05/2017 [facility] Link, [facility] from Last 3 Months Immunizations Name Dates [...] (7 - Td) Additional history exists Results Not on filefrom Last 3 Months
--- OUTSIDE RECORDS SUMMARY | 2017-07-20 17:37 | XMS REPORT | Encounter Summary ---
Author Author [facility] Organization [facility] Address Unknown Phone Unavailable Care Team Providers Care Corporate Safety Coordinator Name Role Phone PCP Unavailable Encounter Details Date Type Department Care Team Description 06/17/2017 [facility] MULTIPLE TESTS Link, On[facility] Scan [place], [place] Social History Tobacco Use Types Packs/Day Years Used Date Current Some Day Smoker Cigarettes 0.5 12 Smokeless Tobacco: Never Used Alcohol Use Drinks/Week oz/Week Comments No Sex Assigned at Date Recorded Not on file as of this encounter Plan of Treatment Not on fileas of this encounter Visit Diagnoses Not on filein this encounter
--- OUTSIDE RECORDS SUMMARY | 2017-07-20 17:45 | XMS REPORT | Continuity of Care Document ---
Author Author [facility] Address Unknown Phone Unavailable Allergies Active Description Code Type Severity Reaction Onset Reported/Identified Relationship to Patient Clinical Status Yes No Known Drug Allergies [id number] Drug Allergy Mild N/A 01/17/2009 Yes sulfamethoxazole [id number] Drug Allergy Unknown N/A 09/17/2014 Yes tramadol [id number] Drug Allergy Unknown N/A 09/17/2014 Yes trimethoprim [id number] Drug Allergy Unknown N/A 09/17/2014 Yes SULFACETAMIDE 5563 DRUG INGREDI N/A Other 10/10/2015 10/10/2015 Yes SULFACETAMIDE 43861 DRUG INGREDI High Anaphylaxis 10/10/2015 10/10/2015 Yes SULFAMETHOXAZOLE-TRIMETHOPRIM 90985 DRUG INGREDI High Swelling 10/10/2015 Yes SULFAMETHOXAZOLE-TRIMETHOPRIM 67120 DRUG INGREDI Med Swelling 10/10/2015 Yes TRAMADOL 40035 DRUG INGREDI High Swelling 10/10/2015 10/10/2015 Yes TRAMADOL 13675 DRUG INGREDI Med Swelling 10/10/2015 10/10/2015 Medications [...] DO Ot F11.10 OPIOID ABUSE, UNCOMPLICATED 07/18/2015 SIOMN CROOK DO Ot F15.10 OTHER STIMULANT ABUSE, [...] Ot F15.10 OTHER STIMULANT ABUSE, UNCOMPLICATED 07/22/2015 IGLA GREWAL DO Ot F17.210 NICOTINE DEPENDENCE, CIGARETTES, [...] O99.343 OTH MENTAL DISORDERS COMPLICATING PREGNA 01/21/2016 GILA GREWAL DO Ot R51 HEADACHE 01/21/2016 GILA [...] Ot R50.9 FEVER, UNSPECIFIED 07/10/2016 DUSTIN, [facility] M[facility] Ot F17.210 NICOTINE DEPENDENCE, CIGARETTES, UNCOMPL 07/10/2016 DUSTIN, [facility] MGR Ot N39.0 URINARY TRACT INFECTION, SITE NOT SPECIF 07/10/2016 DUSTIN, [facility] MGR Ot R10.32 LEFT LOWER QUADRANT PAIN 07/11/2016 DUSTIN, [facility] MGR Ot F17.210 NICOTINE DEPENDENCE, CIGARETTES, UNCOMPL 07/11/2016 DUSTIN, [facility] MGR Ot N39.0 URINARY TRACT INFECTION, SITE NOT SPECIF 07/11/2016 DUSTIN, [facility] MGR Ot R10.32 LEFT LOWER QUADRANT PAIN 11/25/2016 [...] DO Ot 574.20 CHOLELITHIASIS NOS 12/25/2016 SAHARA GRGEORY, DESHAUN Fernandez Ot M51.36 OTHER INTERVERTEBRAL DISC [...] PRE- PROCEDURAL LABORATORY EXAMINATION 05/13/2017 YOGI STILES EMERGENCY DEPT TECH Ot V28.89 OTHER SPECIFIED SCREENING 05/13/2017 GILA [...] PRE- PROCEDURAL LABORATORY EXAMINATION 05/28/2017 YOGI STILES EMERGENCY DEPT TECH Ot V28.89 OTHER SPECIFIED SCREENING 05/28/2017 GILA [...] DO Ot Z3A.32 32 WEEKS GESTATION OF 06/25/2017 MICHELLE ALANIS VALERIA Fowler Ot F19.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, IN R 06/25/2017 VALERIA MARTINEZ DO Ot O47.03 FALSE LABOR BEFORE 37 COMPLETED WEEKS OF 06/25/2017 VALERIA MARTINEZ DO Ot O99.323 DRUG USE COMPLICATING , THIRD T 06/25/2017 MICHELLE ALANIS VALERIA Fowler Ot Z3A.35 35 WEEKS GESTATION OF 06/26/2017 HELIO GREGORY, MICHAEL Wood Ot O47.1 FALSE LABOR AT OR AFTER 37 COMPLETED WEE 06/26/2017 HELIO GREGORY, MICHAEL Wood Ot Z3A.29 29 WEEKS GESTATION OF 07/02/2017 GILA GREWAL DO Ot O76 ABNLT IN HEART RATE AND RHYTHM COM 07/02/2017 MICHELLE ALANIS VALERIA Fowler Ot F19.90 OTHER PSYCHOACTIVE SUBSTANCE USE, UNSPEC 07/02/2017 MICHELLE ALANIS VALERIA Fowler Ot O09.33 SUPRVSN OF PREG W INSUFFICIENT ANTENAT C 07/02/2017 MICHELLE ALANIS VALERIA Fowler Ot O34.211 MATERN CARE FOR LOW TRANSVERSE SCAR FROM 07/02/2017 MICHELLE ALANIS VALERIA Fowler Ot O47.03 FALSE LABOR BEFORE 37 COMPLETED WEEKS OF 07/02/2017 MICHELLE ALANIS VALERIA Fowler Ot Z3A.35 35 WEEKS GESTATION OF 07/02/2017 MICHELLE ALANIS VALERIA Fowler Ot Z91.19 PATIENT'S NONCOMPLIANCE W OTH MEDICAL TR 07/02/2017 GILA GREWAL DO Ot O35.8XX0 MATERNAL CARE FOR [facility] ABNORMALITY 07/02/2017 GILA GREWAL DO, Ot Z3A.35 35 WEEKS GESTATION OF Procedures Code Description Performed By Performed On 74.1 LOW CERVICAL 08/25/2007 99.77 APPL/ADMIN OF AN ADHESION BARRIER SUBSTA 08/25/2007 72.79 VACUUM EXTRACT DEL NEC 03/21/2009 74.1 LOW CERVICAL 03/21/2009 74.1 LOW CERVICAL 11/02/2012 99.77 APPL/ADMIN OF AN ADHESION BARRIER SUBSTA 11/02/2012 70305 ROUTINE VENIPUNCTURE 06/08/2013 54731 UA OB DIP 06/08/2013 41614 URINE TEST (IN- HOUSE) 06/08/2013 65811 TRICHOMONAS (IN-HOUSE) 06/08/2013 86195 URINE DRUG SCREEN (IN-HOUSE ) 06/08/2013 99916 CBC 06/08/2013 78002 TSH 06/08/2013 00336 HIV ANTIBODIES (RML) 06/09/2013 95791 BLOOD TYPE/Rh FACTOR 06/09/2013 8759947 ANTIBODY SCREEN (RESULT ONLY) 06/09/2013 72965 DIRECT VESTA 06/09/2013 47492 RUBELLA ANTIBODY, IGG 06/09/2013 55691 ANTIBODY IDENTIFICATION 06/09/2013 07852 CULTURE, URINE 06/09/2013 29118 US OB - EARLY <14 WEEKS 06/10/2013 70930 SYPHILLIS-[facility] 06/10/2013 34532 HEP B ANTIBODY ([facility]) 06/10/2013 05004 ANTIBODY SCREEN (order) 06/10/2013 99071 GC/CHLAM PROBE ([facility]) 06/10/2013 60736 PAP SMEAR 06/10/2013 Q0091 PAP SMEAR OBTAIN SMEAR 06/10/2013 81103 CULTURE UROGENITAL 06/11/2013 HTT2354 MFM US MIDDLE CEREBRAL ARTERY ECHO 11/02/2013 HFJ1438 MFM US OB FOLLOW UP TRANSABDOMINAL APPROACH 11/02/2013 HJV0797 MFM US UMBILICAL ARTERY ECHO 11/02/2013 UQN1760 MFM US BIOPHYSICAL PROFILE WO NON STRESS TESTING 11/02/2013 RNH1159 ANTIGEN TYPING, RBC, OTHER THAN ABORH 11/21/2013 GBY757 ANTIBODY TITER 11/21/2013 NIT537 ANTIBODY SCREEN 11/21/2013 MMQ713 ABO/RH 11/21/2013 RZD900 ANTIBODY IDENTIFICATION 11/21/2013 FDZ266 ANTIBODY TITER 11/21/2013 UUQ377 ANTIBODY SCREEN 11/21/2013 JSP628 ANTIBODY IDENTIFICATION 11/21/2013 ZUF269 ANTIBODY TITER 11/19/2015 OSS818 ANTIBODY IDENTIFICATION 11/19/2015 DYL0142 LS RATIO 11/19/2015 RJF1108 LAMELLAR BODY COUNTS 11/19/2015 JZM5303 MISCELLANEOUS TEST 11/19/2015 BWJ271 URIC ACID 11/19/2015 LAB20 HEPATIC FUNCTION PANEL 11/19/2015 JZF5978 CANCELLED TEST 11/19/2015 ODT461 CBC AND DIFFERENTIAL 11/19/2015 WYZ410 ANTIBODY IDENTIFICATION 11/19/2015 51H92Y2 EXTRACTION OF POC, LOW CERVICAL, OPEN AP 01/18/2016 [id number] INTRODUCE OTH THERAP SUBST IN EPIDURAL S 01/21/2016 Results Test Result Range ANTIBODY TITER - 10/11/15 16:20 ANTIBODY TITER 0, anti-[place] Complete blood count (CBC) with automated white [...] culture - 06/02/16 00:30 Bacterial urine culture [id number] NRG COLONY COUNT >100,000/ML NRG FTX;REPORTABLE SENSITIVITY REPORTED 06/03/16 7:30 NR Bacterial susceptibility panel - 06/02/16 00:30 Gentamicin [...] test by minimum inhibitory concentration - NRG Streptococcus pyogenes antigen detection - 06/16/16 23:30 [...] culture - 07/10/16 12:32 Bacterial urine culture [id number] NRG COLONY COUNT >100,000/ML NRG FTX;REPORTABLE SENSITIVITY REPORTED AT 1652, 07-11-16 NR FREE TEXT ENTRY 2 UNUSUAL RESISTANT PATTERN DETECTED; NR FREE TEXT ENTRY 3 ESBL IDENTIFIED. [facility] Bacterial susceptibility panel - 07/10/16 [...] culture - 11/25/16 15:16 Bacterial urine culture [id number] NRG COLONY COUNT >100,000/ML NRG FTX;REPORTABLE PLUS, [...] No 1788 83.6 ng/mL 1789 1.36 1790 60244 mIU/mL 1791 3.11 1792 1.69 ng/mL 1793 0.79 1794 518.84 pg/mL 1795 2.56 1796 4034 9624 486 9658 630 1799 Not increased 1800 1:2456 1801 [...] culture - 05/28/17 20:45 Bacterial urine culture [id number] NRG COLONY COUNT <10,000 NRG FTX;REPORTABLE NO [...] culture - 06/05/17 14:15 Bacterial urine culture [id number] NRG COLONY COUNT <10,000 NRG FTX;REPORTABLE SEE COMMENT NRG URINE CULTURE RESULTS PLUS NRG FREE TEXT ENTRY 2 UNUSUAL RESISTANCE PATTERN DETECTED; NRG FREE TEXT ENTRY 3 ESBL IDENTIFIED. NR Bacterial susceptibility panel - 06/05/17 14:15 Gentamicin [...] 11:48 THYROID STIMULATING HORMONE 0.92 u[iU]/mL 0.35-4.94 [id number] - 06/24/17 11:48 Serum or plasma acetaminophen [...] culture - 06/29/17 18:10 Bacterial urine culture [id number] NRG COLONY COUNT 10,000/ML - 100,000/ML NRG [...] 100,000/ML NRG Urine drug screening test - 07/14/17 14:15 Urine phencyclidine detection by screening method [...] automated white blood cell (WBC) differential - 07/14/17 14:30 Blood leukocytes automated count (number/volume) 9.8 10*3/uL 4.3-11.0 Blood erythrocytes automated count (number/volume) 3.94 10*6/uL 4.35-5.85 Venous blood hemoglobin measurement (mass/volume) 10.7 g/dL 11.5-16.0 Blood hematocrit (volume fraction) 32 % 35-52 Automated erythrocyte mean corpuscular volume 82 [foz_us] 80-99 Automated erythrocyte mean corpuscular hemoglobin (mass per erythrocyte) 27 pg 25-34 Automated erythrocyte mean corpuscular hemoglobin concentration measurement ( mass/volume) 33 g/dL 32-36 Automated erythrocyte distribution width ratio 14.3 % 10.0-14.5 Automated blood platelet count (count/volume) 251 10*3/uL 130-400 Automated blood platelet mean volume measurement 10.6 [foz_us] 7.4-10.4 Automated blood neutrophils/100 leukocytes 78 % 42-75 Automated blood lymphocytes/100 leukocytes 17 % 12-44 Blood monocytes/100 leukocytes 5 % 0-12 Automated blood eosinophils/100 leukocytes 1 % 0-10 Automated blood basophils/100 leukocytes 0 % 0-10 Blood neutrophils automated count (number/volume) 7.6 10*3 1.8-7.8 Blood lymphocytes automated count (number/volume) 1.7 10*3 1.0-4.0 Blood monocytes automated count (number/volume) 0.5 10*3 0.0-1.0 Automated eosinophil count 0.1 10*3/uL 0.0-0.3 Automated blood basophil count (count/volume) 0.0 10*3/uL 0.0-0.1 Blood type T Indirect antibody screen panel - 07/14/17 14:30 ABO+Rh group AN NRG Transfusion band number [id number] NRG Blood group antibody screen NEGATIVE NRG K Ag - 07/14/17 14:30 K Ag K NRG [id number] - 07/14/17 14:30 Serum or plasma acetaminophen measurement (mass/volume) Positive NRG Blood drugs identification by screening method Positive NRG Serum or plasma barbiturates detection by screening method Negative NRG Tricyclic antidepressants [presence] in blood by screen method Negative NRG Serum or plasma benzodiazepines measurement by screening method (mass/volume) Negative NRG Screening ethanol detection Negative NRG Serum or plasma salicylates measurement by screening method (mass/volume) Negative NRG Complete blood count (CBC) with automated white blood cell (WBC) differential - 07/15/17 05:10 Blood leukocytes automated count (number/volume) 10.3 10*3/uL 4.3-11.0 Blood erythrocytes automated count (number/volume) 2.97 10*6/uL 4.35-5.85 Venous blood hemoglobin measurement (mass/volume) 7.8 g/dL 11.5-16.0 Blood hematocrit (volume fraction) 25 % 35-52 Automated erythrocyte mean corpuscular volume 84 [foz_us] 80-99 Automated erythrocyte mean corpuscular hemoglobin (mass per erythrocyte) 26 pg 25-34 Automated erythrocyte mean corpuscular hemoglobin concentration measurement ( mass/volume) 32 g/dL 32-36 Automated erythrocyte distribution width ratio 14.1 % 10.0-14.5 Automated blood platelet count (count/volume) 200 10*3/uL 130-400 Automated blood platelet mean volume measurement 10.1 [foz_us] 7.4-10.4 Automated blood neutrophils/100 leukocytes 79 % 42-75 Automated blood lymphocytes/100 leukocytes 15 % 12-44 Blood monocytes/100 leukocytes 5 % 0-12 Automated blood eosinophils/100 leukocytes 1 % 0-10 Automated blood basophils/100 leukocytes 0 % 0-10 Blood neutrophils automated count (number/volume) 8.1 10*3 1.8-7.8 Blood lymphocytes automated count (number/volume) 1.5 10*3 1.0-4.0 Blood monocytes automated count (number/volume) 0.5 10*3 0.0-1.0 Automated eosinophil count 0.1 10*3/uL 0.0-0.3 Automated blood basophil count (count/volume) 0.0 10*3/uL 0.0-0.1 Complete blood count (CBC) with automated white blood cell (WBC) differential - 07/16/17 05:25 Blood leukocytes automated count (number/volume) 10.3 10*3/uL 4.3-11.0 Blood erythrocytes automated count (number/volume) 2.87 10*6/uL 4.35-5.85 Venous blood hemoglobin measurement (mass/volume) 7.7 g/dL 11.5-16.0 Blood hematocrit (volume fraction) 24 % 35-52 Automated erythrocyte mean corpuscular volume 84 [foz_us] 80-99 Automated erythrocyte mean corpuscular hemoglobin (mass per erythrocyte) 27 pg 25-34 Automated erythrocyte mean corpuscular hemoglobin concentration measurement ( mass/volume) 32 g/dL 32-36 Automated erythrocyte distribution width ratio 14.4 % 10.0-14.5 Automated blood platelet count (count/volume) 246 10*3/uL 130-400 Automated blood platelet mean volume measurement 10.5 [foz_us] 7.4-10.4 Automated blood neutrophils/100 leukocytes 75 % 42-75 Automated blood lymphocytes/100 leukocytes 17 % 12-44 Blood monocytes/100 leukocytes 6 % 0-12 Automated blood eosinophils/100 leukocytes 2 % 0-10 Automated blood basophils/100 leukocytes 0 % 0-10 Blood neutrophils automated count (number/volume) 7.8 10*3 1.8-7.8 Blood lymphocytes automated count (number/volume) 1.7 10*3 1.0-4.0 Blood monocytes automated count (number/volume) 0.6 10*3 0.0-1.0 Automated eosinophil count 0.2 10*3/uL 0.0-0.3 Automated blood basophil count (count/volume) 0.0 10*3/uL 0.0-0.1 Encounters ACCT No. Visit Date/Time Discharge Status Pt. Type Provider Facility Loc./Unit Complaint [id number] 06/08/2013 14:23:00 06/08/2013 23:59:59 CLS Outpatient GHADA KABA DO [id number] 04/26/2013 11:10:00 04/26/2013 23:59:59 CLS Outpatient SHARRON HEAD APRN [id number] 07/06/2017 12:01:00 07/06/2017 14:02:00 DIS Outpatient MICHELLE VALERIA ALANIS [facility] WSo ABD PAIN [id number] 06/29/2017 17:58:00 06/29/2017 19:29:00 DIS Outpatient [facility]/ CONTRACTIONS [id number] 06/26/2017 09:35:00 06/26/2017 10:24:00 DIS Outpatient MICHELLE VALERIA ALANIS [facility] WSo CONTRACTIONS [id number] 06/25/2017 13:51:00 06/25/2017 23:59:59 CLS Outpatient GILA GREWAL [facility] LAB[facility] [id number] 06/25/2017 19:27:00 06/25/2017 21:25:00 DIS Outpatient VALERIA MARTINEZ DO [facility] WSo LOW BACK PAIN, DECREASED MOVEMENT [id number] 06/24/2017 10:45:00 06/24/2017 17:50:00 DIS Outpatient GILA GREWAL [facility] BIOPHYSICAL PROFILE [id number] 06/05/2017 14:03:00 06/06/2017 10:56:00 DIS Inpatient VALERIA MARTINEZ DO [facility] LDRP NAUSEA,VOMITING, DIARRHEA [id number] 05/28/2017 20:34:00 05/28/2017 22:00:00 DIS Outpatient VALERIA MARTINEZ DO [facility] WSo BLOOD IN STOOL; CRAMPING;BACK PAIN [id number] 05/13/2017 19:30:00 05/13/2017 20:55:00 DIS Outpatient HELIO GREGORY, MICHAEL Wood [facility] WSo CONTRACTIONS [id number] 12/25/2016 14:09:00 12/25/2016 23:59:59 CLS Outpatient ANGEL GREGORY, RAJESH Gaines [facility] RAD DATING,9 WKS GESTATION Z3A.09 [id number] 11/25/2016 15:13:00 11/25/2016 16:58:00 DIS Emergency SIMON CROOK DO K [facility] ER CP [id number] 07/10/2016 12:29:00 07/10/2016 16:36:00 DIS Emergency DUSTINALYSEP [facility] ER KIDNEY PAIN [id number] 06/16/2016 23:08:00 06/17/2016 00:14:00 DIS Emergency SHARRON MELO DO D [facility] ER SORE THROAT,BODY ACHE, FEVER [id number] 06/02/2016 00:21:00 06/02/2016 02:26:00 DIS Emergency DIONTE GREGORY, MICHAELA Baird [facility] ER BACK PAIN [id number] 04/09/2016 11:41:00 04/09/2016 13:00:00 DIS Emergency STEPHANIE SIMMONS [facility] ER COUGH/CONGESTION RUNNY NOSE [id number] 02/01/2016 12:21:00 02/01/2016 23:59:59 CLS Preadmit GILA GREWAL DO [id number] 01/18/2016 06:03:00 01/21/2016 16:50:00 DIS Inpatient GILA GREWAL DO [facility] LDRP PREVIOUS SECTION [id number] 01/16/2016 12:44:00 01/16/2016 13:30:00 DIS Outpatient GILA GREWAL DO [facility] PREOP PREVIOUS SECTION [id number] 01/13/2016 14:16:00 01/13/2016 15:47:00 DIS Outpatient GILA GREWAL DO [facility] ACUTE K ANTIBODIES, ACUTE D ANTIBODIES [id number] 12/31/2015 02:53:00 12/31/2015 04:47:00 DIS Outpatient HELIO GREGORY, MICHAEL Wood [facility] BODYACHE FROM FALL , N/V [id number] 12/31/2015 02:10:00 12/31/2015 02:46:00 DIS Emergency MASOOD GREGORY, KEO Kelly [facility] ER 36 WKS PREG, N/V, BODY ACHES FROM FALL [id number] 12/02/2015 22:08:00 12/02/2015 23:45:00 DIS Outpatient DEMARCO GREGORY, TYRONE Arriaga [facility] WSo CONTRACTIONS [id number] 08/30/2015 08:33:00 08/30/2015 10:06:00 DIS Emergency VALENTIN GREGORY, MARVIN Jenkins [facility] ER VOMITING/DIARRHEA 19 WKS PREG [id number] 08/18/2015 07:17:00 08/18/2015 10:12:00 DIS Emergency MOO GREGORY, ANGELI Fowler [facility] ER SEVERE LOWER ABD PAIN AT 17 WEEKS [id number] 07/23/2015 23:15:00 07/25/2015 09:15:00 DIS Inpatient GILA GREWAL DO [facility] LDRP GENERALIZED ABD PAIN,UTI ,[place] [id number] 07/20/2015 12:50:00 07/22/2015 09:25:00 DIS Inpatient GILA GREWAL DO [facility] LDRP PYELONEPHRITIS WITH PERSISTENT VOMITING [id number] 07/17/2015 20:53:00 07/18/2015 00:52:00 DIS Emergency SIMON CROOK DO [facility] ER ABD PAIN/11 WEEKS PREG [id number] 06/22/2015 23:02:00 06/23/2015 02:34:00 DIS Emergency DIONTE GREGORY, MICHAELA Baird [facility] ER VOMITING;9 WKS PREG [id number] 05/10/2015 13:03:00 05/10/2015 23:59:59 CLS Outpatient SAHARA GREGORY, DESHAUN Fernandez [facility] RAD INJ LUMBAR SPINE PAIN [id number] 02/17/2015 17:20:00 02/17/2015 17:51:00 DIS Emergency SHARRON MELO DO Brie [facility] ER SORE THROAT/CHEST CONGESTION [id number] 06/22/2014 13:02:00 06/23/2014 17:49:00 DIS Outpatient MINE HURLEY MD [facility] SDC CHOLELITHIASIS [id number] 06/21/2014 09:04:00 06/21/2014 23:59:59 CLS Outpatient GILA GREWAL DO [facility] RAD ABD PAIN, GALL STONES [id number] 06/17/2013 13:43:00 06/17/2013 23:59:59 CLS Outpatient YOGI STILES APRN [facility] RAD DATING [id number] 11/02/2012 09:00:00 11/05/2012 12:30:00 DIS Inpatient GILA GREWAL DO [facility] WS REPEAT SECTION [id number] 07/14/2017 14:10:00 ACT Inpatient GILA GREWAL DO [facility] LDRP PREVIOUS [id number] 04/09/2017 05:25:00 Document Registration [id number] 04/09/2017 05:25:00 Document Registration [id number] 04/09/2017 05:11:00 Document Registration [id number] 04/09/2017 05:11:00 Document Registration [id number] 04/09/2017 05:11:00 Document Registration [id number] 04/09/2017 05:11:00 Document Registration [id number] 04/09/2017 05:11:00 Document Registration [id number] 04/09/2017 05:11:00 Document Registration [id number] 04/09/2017 05:11:00 Document Registration [id number] 04/09/2017 05:11:00 Document Registration [id number] 04/09/2017 05:11:00 Document Registration [id number] 04/09/2017 05:11:00 Document Registration [id number] 04/09/2017 05:11:00 Document Registration [id number] 04/09/2017 05:11:00 Document Registration [id number] 04/09/2017 05:11:00 Document Registration [id number] 04/09/2017 05:11:00 Document Registration [id number] 04/09/2017 05:11:00 Document Registration [id number] 04/09/2017 05:11:00 Document Registration [id number] 04/09/2017 05:11:00 Document Registration [id number] 04/09/2017 05:11:00 Document Registration [id number] 02/17/2015 17:19:00 Document Registration [id number] 09/17/2014 20:25:00 Document Registration [id number] 10/29/2012 11:38:00 Document Registration [id number] 10/26/2012 13:00:00 Document Registration [id number] 10/13/2012 19:51:00 Document Registration [id number] 10/09/2012 13:51:00 Document Registration [id number] 07:40:00 Document Registration [id number] 08/18/2012 10:40:00 Document Registration [id number] 12/10/2011 12:49:00 Document Registration [id number] 05/26/2011 15:07:00 Document Registration [id number] 03/24/2011 21:34:00 Document Registration [id number] 10/22/2010 10:06:00 Document Registration [id number] 10/21/2010 15:02:00 Document Registration [id number] 03/21/2009 05:47:00 Document Registration [id number] 03/14/2009 10:11:00 Document Registration [id number] 01/21/2009 09:35:00 Document Registration [id number] 01/17/2009 16:20:00 Document Registration [id number] 08/25/2007 06:05:00 Document Registration [id number] 08/06/2007 21:31:00 Document Registration [id number] 07/27/2007 18:45:00 Document Registration [id number] 06/09/2007 11:51:00 Document Registration [id number] 06/04/2007 13:13:00 Document Registration [id number] 05/19/2007 11:22:00 Document Registration [id number] 04/13/2017 08:12:28 04/13/2017 23:59:59 CLS Outpatient [place] [facility] [id number] 04/13/2017 07:52:23 04/13/2017 23:59:59 CLS Outpatient DALIA PRADO [place] [facility] [id number] 04/13/2017 07:51:17 04/13/2017 23:59:59 CLS Outpatient [place] [facility] [id number] 03/19/2017 08:05:50 03/19/2017 23:59:59 CLS Outpatient [place] [facility] [id number] 03/19/2017 07:55:22 03/19/2017 23:59:59 CLS Outpatient [place] [facility] [id number] 03/19/2017 07:55:09 03/19/2017 23:59:59 CLS Outpatient KIET SCHROEDERELA [facility] [id number] 02/18/2017 09:15:56 02/18/2017 23:59:59 CLS Outpatient [place] [facility] [id number] 02/18/2017 08:26:14 02/18/2017 23:59:59 CLS Outpatient [place] [facility] [id number] 02/18/2017 08:25:53 02/18/2017 23:59:59 CLS Outpatient DALIA PRADO [facility] [id number] 12/24/2015 13:16:42 12/24/2015 23:59:59 CLS Outpatient [place] [facility] [id number] 12/24/2015 12:53:08 12/24/2015 23:59:59 CLS Outpatient MARIELLA WEST [facility] [id number] 12/13/2015 10:39:10 12/13/2015 23:59:59 CLS Outpatient [place] [facility] [id number] 12/13/2015 10:23:49 12/13/2015 23:59:59 CLS Outpatient MARIELLA WEST [facility] [id number] 11/01/2015 13:11:30 11/01/2015 23:59:59 CLS Outpatient [facility] [id number] 11/01/2015 12:41:57 11/01/2015 23:59:59 CLS Outpatient MARIELLA WEST [facility] [id number] 10/11/2015 17:56:07 Document Registration [id number] 10/11/2015 16:04:34 Document Registration [id number] 10/11/2015 15:00:48 Document Registration [id number] 10/11/2015 14:58:43 Document Registration [id number] 10/27/2013 09:32:46 Document Registration [id number] 10/13/2013 10:13:31 Document Registration [id number] 09/29/2013 07:43:16 Document Registration [id number] 09/15/2013 10:42:33 Document Registration [id number] 09/01/2013 10:44:59 Document Registration [id number] 08/04/2013 11:16:36 Document Registration
[2017-07-20 19:35] LABS: BASOPHILS % (AUTO) 0 % (0-10); EOSINOPHILS # (AUTO) 0.2 10^3/uL (0.0-0.3); EOSINOPHILS % (AUTO) 2 % (0-10); HEMATOCRIT 26 % (35-52); HEMOGLOBIN 8.4 G/DL (11.5-16.0); LYMPHOCYTES # (AUTO) 1.5 X 10^3 (1.0-4.0); LYMPHOCYTES % (AUTO) 21 % (12-44); MEAN CORPUSCULAR HEMOGLOBIN 27 PG (25-34); MEAN CORPUSCULAR HGB CONC 33 G/DL (32-36); MEAN CORPUSCULAR VOLUME 84 FL (80-99); MEAN PLATELET VOLUME 8.7 FL (7.4-10.4); MONOCYTES # (AUTO) 0.4 X 10^3 (0.0-1.0); MONOCYTES % (AUTO) 6 % (0-12); NEUTROPHILS # (AUTO) 5.3 X 10^3 (1.8-7.8); NEUTROPHILS % (AUTO) 71 % (42-75); PLATELET COUNT 467 10^3/uL (130-400); RED BLOOD COUNT 3.07 10^6/uL (4.35-5.85); RED CELL DISTRIBUTION WIDTH 14.4 % (10.0-14.5); WHITE BLOOD COUNT 7.5 10^3/uL (4.3-11.0)
[2017-07-20 19:42] LABS: AMPHETAMINE SCREEN, URINE NEGATIVE (NEGATIVE); BARBITURATE SCREEN URINE NEGATIVE (NEGATIVE); BENZODIAZEPINES SCREEN URINE NEGATIVE (NEGATIVE); CANNABINOID SCREEN, URINE NEGATIVE (NEGATIVE); COCAINE SCREEN URINE NEGATIVE (NEGATIVE); METHADONE STAT NEGATIVE (NEGATIVE); METHAMPHETAMINE SCREEN URINE S NEGATIVE (NEGATIVE); OPIATE SCREEN URINE POSITIVE (NEGATIVE); OXYCODONE STAT NEGATIVE (NEGATIVE); PROPOXYPHENE STAT NEGATIVE (NEGATIVE); TRICYCLIC ANTIDEPRESSANTS SCRE NEGATIVE (NEGATIVE)
--- NOTE | 2017-07-20 19:42 | Diagnostic Imaging Report ---
INDICATION: 6 days with bilateral leg swelling. FINDINGS: There is no focal alveolar consolidation demonstrated. There is no effusion. There is no pneumothorax. There is very slight prominence of the basilar interstitial markings which could relate to mild interstitial edema and volume overload. Heart size appears within normal limits. There is no osseous abnormality. IMPRESSION: 1. Very slight prominence of the basilar interstitial markings, could relate to volume overload and mild interstitial edema. The appearance of the chest is otherwise unremarkable. Dictated by: Dictated on workstation # [id number]
[2017-07-20 19:46] LABS: PROTHROMBIN TIME PATIENT 13.3 SEC (12.2-14.7)
[2017-07-20 19:56] LABS: ALANINE AMINOTRANSFERASE 17 U/L (0-55); ALBUMIN 3.2 GM/DL (3.2-4.5); ALKALINE PHOSPHATASE 168 U/L (40-136); BILIRUBIN,TOTAL 0.2 MG/DL (0.1-1.0); BUN/CREATININE RATIO 15; CALCIUM 8.8 MG/DL (8.5-10.1); CARBON DIOXIDE 24 MMOL/L (21-32); CHLORIDE 107 MMOL/L (98-107); CREATININE SERUM 0.68 MG/DL (0.60-1.30); GFR ESTIMATED > 60; GLUCOSE 82 MG/DL (70-105); MAGNESIUM 1.6 MG/DL (1.8-2.4); SODIUM 142 MMOL/L (135-145); TOTAL PROTEIN 6.8 GM/DL (6.4-8.2)
--- NOTE | 2017-07-20 20:09 | ED General ---
General Chief Complaint: Cardiac/General Problems Stated Complaint: SWELLING BILAT FEET,HEADACHE, 6 DAYS Nursing Triage Note: pt reports she gave 4 days ago at 38 weeks. pt reports she started having soa, pichardo, blurred vision 2 days ago. pt states she thinks she has preeclampsia but did not have any problems while preganant. pt reports the state took her baby today. Nursing Sepsis Screen: No Definite Risk Source of Information: Patient, Old Records History of Present Illness Time Seen by Provider: 18:48 Initial Comments PT ARRIVES VIA POV PT DELIVERED 07/14/17 VIA AT [address] GREWAL, DISMISSED 07/16/17 PT IS AB 2 WITH C-SECTIONS X 6 BOTH PT AND BABY TESTED + FOR METHAMPHETAMINES AT TIME OF DELIVERY CHILD WAS TRANSFERRED TO [facility] TODAY, THE CHILD WAS TAKEN INTO [facility] AND APPARENTLY SOME ALTERCATION TOOK PLACE AT [facility] WHEN THIS OCCURRED AND PT TOLD THEM SHE WAS "GOING TO [facility] AND GET ADMITTED FOR PRE-ECLAMPSIA". THERE IS A QUESTION OF PT HAVING WARRANTS FOR HER ARREST. PT DID NOT HAVE ANY HISTORY OF PRE-ECLAMPSIA DURING THIS OR WITH ANY OF HER PREVIOUS PREGNANCIES PT STATES SHE HAS HAD LEG SWELLING, HEADACHE, DIZZINESS, AND BEING SLEEPY, EYES HURTING FOR THE LAST 2 DAYS SYMPTOMS NO DIFFERENT TODAY HAS NOT ATTEMPTED TO CONTACT DR. GREWAL OR SEEK CARE PRIOR TO NOW FOR THIS PROBLEM PT DENIES FEVER NO COUGH OR SHORTNESS OF BREATH ( DENIES THIS TO ME--TOLD RN SHE WAS SHORT OF BREATH) NO CHEST PAIN NO ABDOMINAL PAIN NO PROBLEMS WITH INCISION NO SIGNIFICANT BLEEDING PT IS PUMPING BREASTMILK WHEN I ENTER ROOM. PT WITH MULTITUDE OF VISITS--52 VISITS SINCE 10/2005 LAST CHILD WAS BORN 01/18/16 PT HAS EXTENSIVE DRUG USE HISTORY AND HAS TESTED + FOR METH/ AMPHETAMINES, THC, COCAINE, BENZO'S, OPIATES DURING PREGNANCIES, INCLUDING THIS --+ FOR AMPHETAMINES 05/13/17, AND + FOR AMPHETAMINES, METHAMPHETAMINES, BENZODIAZEPINES , THC ON 11/25/16 AND HAD POSITIVE TEST AT THAT TIME PCP: DR. SHOEMAKER LUMBER HACKER: DR. GREWAL Allergies and Home Medications Allergies Coded Allergies: sulfamethoxazole (Verified Allergy, Unknown, 09/17/14) tramadol (Verified Allergy, Unknown, 09/17/14) trimethoprim (Verified Allergy, Unknown, 09/17/14) Home Medications Calcium Carbonate 200 Mg Tab.chew, 200 MG PO Q4H, (Reported) Docusate Sodium 100 Mg Capsule, 100 MG PO BID, #60 Prescribed by: GILA GREWAL on 07/16/17 0858 Guaifenesin/Dextromethorphan 5 Ml Syrup, 10 ML PO Q4H PRN for COUGH, #120 Prescribed by: GILA GREWAL on 07/16/17 0858 Hydrocodone/Acetaminophen 1 Each Tablet, 1 EA PO q6hr PRN for PAIN-MODERATE, #30 Prescribed by: GILA GREWAL on 07/16/17 0858 Ibuprofen 600 Mg Tablet, 600 MG PO Q6H, #60 Prescribed by: GILA GREWAL on 07/16/17 0858 Iron Polysaccharide Complex 150 Mg Capsule, 150 MG PO BID WITH MEALS, #120 Ref 1 Prescribed by: GILA GREWAL on 07/16/17 0858 Vit/Iron Fumarate/FA 1 Each Tablet, 1 EACH PO DAILY, (Reported) Constitutional: see HPI, dizziness EENTM: see HPI, eye pain Respiratory: see HPI Cardiovascular: see HPI, No chest pain, edema, No palpitations, No syncope, No vascular heart diseas Gastrointestinal: no symptoms reported, No nausea, No vomiting Genitourinary: see HPI Musculoskeletal: no symptoms reported Skin: see HPI Psychiatric/Neurological: Headache, Denies Numbness, Denies Paresthesia, Denies Seizure Hematologic/Lymphatic: Anemia Past Nrjtewa-Togkwv-Nyrlxx Hx Patient Social History Alcohol Use: Occasionally Uses Recreational Drug Use: Yes (THC, METH/AMPHETAMINES, BENZO'S, COCAINE, OPIATES) Drug of Choice: THC, METH/AMPHETAMINES, COCAINE, BENZO'S, OPIATES Smoking Status: Current Everyday Smoker (1 PPD) Type Used: Cigarettes (1 PPD) Recent Foreign Travel: No Contact w/Someone Who Travel: No Recent Infectious Disease Expo: No Recent Hopitalizations: No Physical Abuse: No Sexual Abuse: No Mistreated: No Fear: No Immunizations Up To Date Tetanus Booster (TDap): More than 5yrs Date of Influenza Vaccine: Jul 16, 2017 Seasonal Allergies Seasonal Allergies: No Surgeries History of Surgeries: Yes ( X 6; LEEP; CLOSED REDUCION OF ANKLE FX) Surgeries: Adenoidectomy, Section, Gallbladder, Orthopedic Respiratory History of Respiratory Disorde: No Cardiovascular History of Cardiac Disorders: No Neurological History of Neurological Disord: No Reproductive System : No Last Menstrual Period: Jul 14, 2017 (DELIVERED 07/14/17) Hx : 8 Hx Para: 6 (HISTORY OF PLACENTAL ABRUPTION WITH PREVIOUS PREGNACY) Hx Total # of Abortions (Spona: 2 (1 ELECTIVE ) Hx Reproductive Disorders: Yes (CERVICAL DYSPLASIA--S/P LEEP) Sexually Transmitted Disease: Yes (CHLAMYDIA, HPV) HIV/AIDS: No Female Reproductive Disorders: Denies Genitourinary History of Genitourinary Disor: Yes Genitourinary Disorders: Bladder Infection, UTI-Chronic Gastrointestinal History of Gastrointestinal Di: Yes Gastrointestinal Disorders: Gastroesophageal Reflux Musculoskeletal History of Musculoskeletal Dis: Yes (SELF-REPORTED BACK PAIN/DEGENERATIVE DISC DISEASE; ANKLE FX) Musculoskeletal Disorders: Degenerate Disk Disease, Chronic Back Pain, Fractures Endocrine History of Endocrine Disorders: No HEENT History of HEENT Disorders: No Cancer History of Cancer: No Psychosocial History of Psychiatric Problem: Yes (POLYSUBSTANCE ABUSE) Behavioral Health Disorders: Anxiety, Depression Suicide Risk Score: 0 Integumentary History of Skin or Integumenta: No Blood Transfusions History of Blood Disorders: Yes (ANEMIA; BLOOD TYPE A NEGATIVE; ANTI TAYLOR AND ANTI D ANTIBODIES) Adverse Reaction to a Blood Tr: No Family Medical History Significant Family History: Cancer, Hypertension Family Medial History: Arthritis (pt's mother) FH: cancer (grandmother) Physical Exam Vital Signs Vital Sign - Last 12Hours 07/20/17 18:49 Temp 98.3 Pulse 86 Resp 20 B/P (MAP) 146/87 (106) Pulse Ox 98 Capillary Refill : Less Than 3 Seconds General Appearance: No Apparent Distress, Obese Neck: Normal Inspection, No JVD Respiratory: Normal Breath Sounds, No Accessory Muscle Use, No Respiratory Distress Cardiovascular: Regular Rate, Rhythm, No JVD, No Murmur, Normal Peripheral Pulses Gastrointestinal: Non Tender, Soft, Other (INCISION CLEAN, DRY, INTACT. NO SIGNS OF INFECTION, NON-TENDER. ) Back: No CVA Tenderness Extremity: Normal Capillary Refill, Normal Range of Motion, Non Tender, Pedal Edema (TRACE TO 1+ EDEMA BILATERALLY) Neurologic/Psychiatric: Alert, Oriented x3, No Motor/Sensory Deficits, jowl trimmer II- XII Norm as Tested Skin: Warm/Dry, Pallor Progress/Results/Core Measures Suspected Sepsis Recent Fever Within 48 Hours: No Infection Criteria Present: None New/Unexplained Altered Menta: No Sepsis Screen: No Definite Risk Sepsis Diagnosis: SIRS Temperature:98.3 Pulse: 86 Respiratory Rate: 20 Laboratory Tests 07/20/17 19:25: White Blood Count 7.5 Blood Pressure 146 /87 Mean: 106 Laboratory Tests 07/20/17 19:25: Creatinine 0.68, INR Comment 1.0, Platelet Count 467H, Total Bilirubin 0.2 Results/Orders Lab Results Laboratory Tests Test 07/20/17 19:20 07/20/17 19:25 Range/Units Urine Opiates Screen POSITIVE H NEGATIVE Urine Oxycodone Screen NEGATIVE NEGATIVE Urine Methadone Screen NEGATIVE NEGATIVE Urine Propoxyphene Screen NEGATIVE NEGATIVE Urine Barbiturates Screen NEGATIVE NEGATIVE Ur Tricyclic Antidepressants Screen NEGATIVE NEGATIVE Urine Phencyclidine Screen NEGATIVE NEGATIVE Urine Amphetamines Screen NEGATIVE NEGATIVE Urine Methamphetamines Screen NEGATIVE NEGATIVE Urine Benzodiazepines Screen NEGATIVE NEGATIVE Urine Cocaine Screen NEGATIVE NEGATIVE Urine Cannabinoids Screen NEGATIVE NEGATIVE White Blood Count 7.5 4.3-11.0 10^3/uL Red Blood Count 3.07 L 4.35-5.85 10^6/uL Hemoglobin 8.4 L 11.5-16.0 G/DL Hematocrit 26 L 35-52 % Mean Corpuscular Volume 84 80-99 FL Mean Corpuscular Hemoglobin 27 25-34 PG Mean Corpuscular Hemoglobin Concent 33 32-36 G/DL Red Cell Distribution Width 14.4 10.0-14.5 % Platelet Count 467 H 130-400 10^3/uL Mean Platelet Volume 8.7 7.4-10.4 FL Neutrophils (%) (Auto) 71 42-75 % Lymphocytes (%) (Auto) 21 12-44 % Monocytes (%) (Auto) 6 0-12 % Eosinophils (%) (Auto) 2 0-10 % Basophils (%) (Auto) 0 0-10 % Neutrophils # (Auto) 5.3 1.8-7.8 X 10^3 Lymphocytes # (Auto) 1.5 1.0-4.0 X 10^3 Monocytes # (Auto) 0.4 0.0-1.0 X 10^3 Eosinophils # (Auto) 0.2 0.0-0.3 10^3/uL Basophils # (Auto) 0.0 0.0-0.1 10^3/uL Prothrombin Time 13.3 12.2-14.7 SEC INR Comment 1.0 0.8-1.4 Activated Partial Thromboplast Time 31 24-35 SEC Sodium Level 142 135-145 MMOL/L Potassium Level 4.0 3.6-5.0 MMOL/L Chloride Level 107 98-107 MMOL/L Carbon Dioxide Level 24 21-32 MMOL/L Anion Gap 11 5-14 MMOL/L Blood Urea Nitrogen 10 7-18 MG/DL Creatinine 0.68 0.60-1.30 MG/DL Estimat Glomerular Filtration Rate > 60 BUN/Creatinine Ratio 15 Glucose Level 82 70-105 MG/DL Calcium Level 8.8 8.5-10.1 MG/DL Magnesium Level 1.6 L 1.8-2.4 MG/DL Total Bilirubin 0.2 0.1-1.0 MG/DL Aspartate Amino Transf (AST/SGOT) 16 5-34 U/L Alanine Aminotransferase (ALT/SGPT) 17 0-55 U/L Alkaline Phosphatase 168 H 40-136 U/L Troponin I < 0.30 <0.30 NG/ML B-Type Natriuretic Peptide 68.0 <100.0 PG/ML Total Protein 6.8 6.4-8.2 GM/DL Albumin 3.2 3.2-4.5 GM/DL My Orders Orders - SIMON CROOK DO Saline Lock/Iv-Start (07/20/17 19:00) Ekg Tracing (07/20/17 19:00) Monitor-Rhythm Ecg Trace Only (07/20/17 19:00) BNP (07/20/17 19:00) Cbc With Automated Diff (07/20/17 19:00) Comprehensive Metabolic Panel (07/20/17 19:00) Drug Screen Stat (Urine) (07/20/17 19:00) Magnesium (07/20/17 19:00) Protime With Inr (07/20/17 19:00) Partial Thromboplastin Time (07/20/17 19:00) Troponin I (07/20/17 19:00) Chest Pa/Lat (2 View) (07/20/17 19:00) Vital Signs/I&O Vital Sign - Last 12Hours 07/20/17 07/20/17 18:49 20:30 Temp 98.3 98.3 Pulse 86 84 Resp 20 20 B/P (MAP) 146/87 (106) Pulse Ox 98 98 Capillary Refill : Less Than 3 Seconds Blood Pressure Mean: 106 Progress Note : Progress Note PT WAS LAUGHING AND JOKING WITH FEMALE IN ROOM AND HAD NO COMPLAINTS FOR ENTIRE ER STAY AND HAD UNEVENTFUL ER STAY UNTIL I REVIEWED TEST RESULTS WITH HER AND GAVE RECOMMENDATIONS TO FOLLOW UP WITH HER LUMBER HACKER, AND OFFERED DOSE OF LASIX FOR HER EDEMA, WHICH PT DECLINED, STATING THAT "SHE DIDN'T CARE ABOUT THE SWELLING" --PT SUDDENLY BECOMES VERY BELLIGERANT AND CURSING, STATES "I KNEW IS SHOULD HAVE NEVER COME TO THIS FUCKIN' PLACE" "YOU'RE THE REASON THEY TOOK MY BABY AWAY" AND PROCEEDED TO CURSE AND DEMAND IV BE REMOVED SO SHE COULD LEAVE BP IN 130'S70'S AT DISMISSAL PT STATES SHE ALREADY HAS AN APPOINTMENT WITH DR. GREWAL ON Thursday07/22/17 ECG Initial ECG Impression Time: 19:04 Initial ECG Rate: 82 Initial ECG Rhythm: Normal Sinus Diagnostic Imaging Comments CXR--VERY SLIGHT INCREASE IN INTERSTITIAL MARKINGS, PER RADIOLOGIST REPORT @ 2008 Reviewed: Reviewed by Me Departure Impression Impression: Primary Impression: edema Additional Impression: RELATED ANEMIA Disposition: HOME, SELF-CARE Condition: Stable Departure-Patient Inst. Referrals: GILA GREWAL DO (PCP) Primary Care Physician DESHAUN SOHEMAKER MD (Family) Primary Care Physician Patient Instructions: ( Delivery) (DC), Dependent Edema (DC) Add. Discharge Instructions: KEEP YOUR APPOINTMENT WITH DR. GREWAL ON THURSDAY SCHEDULED FOLLOW ALL POST INSTRUCTIONS All discharge instructions reviewed with patient and/or family. Voiced understanding. SIMON CROOK DO Jul 20, 2017 20:09
[2017-07-20 20:30] VITALS: BP 135/80
== END 2017-07-20 20:30 | disposition home or self-care (01) ==
LOC: EDUNIT# 17:31 → ER 17:33
DX: O99.89 Other specified diseases and conditions complicating pregnancy, childbirth and the puerperium (principal); R60.0 Localized edema; O99.03 Anemia complicating the puerperium; D64.9 Anemia, unspecified; O99.345 Other mental disorders complicating the puerperium; F41.9 Anxiety disorder, unspecified; F32.9 Major depressive disorder, single episode, unspecified; O99.325 Drug use complicating the puerperium; F15.10 Other stimulant abuse, uncomplicated; F12.10 Cannabis abuse, uncomplicated; F14.10 Cocaine abuse, uncomplicated; O99.335 Smoking (tobacco) complicating the puerperium; F17.210 Nicotine dependence, cigarettes, uncomplicated; Z87.59 Personal history of other complications of pregnancy, childbirth and the puerperium; Z90.89 Acquired absence of other organs; Z87.440 Personal history of urinary (tract) infections; Z98.890 Other specified postprocedural states
CPT/HCPCS: 36415; 71046; 80053; 80306; 83735; 83880; 84484; 85025; 85610; 85730; 93005; 93041

== ENCOUNTER 2017-07-27 00:06 | Emergency (ER) | payer MEDICAID ==
[~2017-07-27] VITALS: Ht 160 cm; Wt 113.4 kg
--- OUTSIDE RECORDS SUMMARY | 2017-07-27 00:12 | XMS REPORT | Clinical Summary ---
Author Author [facility] Address Unknown Phone Unavailable Support Name Relationship [...] other high risk pregnancies, second trimester 02/18/2017 [place] isoimmunization during in second trimester, not applicable or unspecified fetus Prior poor obstetrical history, antepartum, second trimester 02/18/2017 Maternal obesity, antepartum, second trimester 02/18/2017 Currently Estimated Date of Delivery Comments Yes 07/28/2017 Based on Ultrasound Resolved Problems Problem Noted Date Resolved Date 23 weeks gestation of 10/11/2015 02/18/2017 Anti-D antibodies present in , unspecified trimester, other fetus 10/10/2015 02/18/2017 [place] isoimmunization during , unspecified trimester, other fetus [...] Immune Globulin 11/11/2013 Td(adult), adsorbed 04/05/2003 Tdap 07/16/2017, 11/12/2013, 08/18/2012 Family History Medical History Relation [...] Vaccine (#1) 2017 06/08/2013 DTaP,Tdap,and Td Vaccines 07/16/2027 07/16/2017, 11/12/2013, 08/18/2012, (8 - Td) Additional history exists Results Not on filefrom Last 3 Months
--- OUTSIDE RECORDS SUMMARY | 2017-07-27 00:12 | XMS REPORT | Encounter Summary ---
Author Author [facility] Organization [facility] Address Unknown Phone Unavailable Care Team Providers Care Demolitionist Name Role Phone PCP Unavailable Encounter Details Date Type Department Care Team Description 05/05/2017 [facility], [facility] [place], [place] Social History Tobacco Use Types Packs/Day Years Used Date Current Some Day Smoker Cigarettes 0.5 12 Smokeless Tobacco: Never Used Alcohol Use Drinks/Week oz/Week Comments No Sex Assigned at Date Recorded Not on file as of this encounter Plan of Treatment Not on fileas of this encounter Visit Diagnoses Not on filein this encounter
--- OUTSIDE RECORDS SUMMARY | 2017-07-27 00:12 | XMS REPORT | Encounter Summary ---
Author Author [facility] Organization [facility] Address Unknown Phone Unavailable Care Team Providers Care Hot Stone Setter Name Role Phone PCP Unavailable Encounter Details Date Type Department Care Team Description 06/08/2017 [facility] M[facility]LE [facility] Link, [facility] [place], [place] Social History Tobacco Use Types Packs/Day Years Used Date Current Some Day Smoker Cigarettes 0.5 12 Smokeless Tobacco: Never Used Alcohol Use Drinks/Week oz/Week Comments No Sex Assigned at Date Recorded Not on file as of this encounter Plan of Treatment Not on fileas of this encounter Visit Diagnoses Not on filein this encounter
--- OUTSIDE RECORDS SUMMARY | 2017-07-27 00:12 | XMS REPORT | Encounter Summary ---
Author Author [facility] Organization [facility] Address Unknown Phone Unavailable Care Team Providers Care Neurosurgical Nurse Name Role Phone PCP Unavailable Encounter Details Date Type Department Care Team Description 06/17/2017 [facility] M[facility]LE [facility] Link, [facility] [place], [place] Social History Tobacco Use Types Packs/Day Years Used Date Current Some Day Smoker Cigarettes 0.5 12 Smokeless Tobacco: Never Used Alcohol Use Drinks/Week oz/Week Comments No Sex Assigned at Date Recorded Not on file as of this encounter Plan of Treatment Not on fileas of this encounter Visit Diagnoses Not on filein this encounter
--- OUTSIDE RECORDS SUMMARY | 2017-07-27 00:13 | XMS REPORT | Clinical Summary ---
Author Author [facility] Organization [facility] Address Unknown Phone Unavailable Care Team Providers Care Vending Attendant Name Role Phone PCP Unavailable Source Comments Some departments are not documenting in the electronic medical record. If you do not see the information that you expected, contact Release of Information in the Health Information Management department at [phone] for further assistance in locating additional records.[facility] Allergies Active Allergy Reactions Severity [...] Taken Blood Pressure 104/59 09/03/2015 1:49 PM VOLTAGE INSPECTOR Pulse 87 09/03/2015 1:49 PM VOLTAGE INSPECTOR Temperature - - Respiratory Rate - - Oxygen Saturation - - Inhaled Oxygen - - Concentration Weight 82.1 kg (181 lb) 09/03/2015 1:49 PM VOLTAGE INSPECTOR Height 157.5 cm (5' 2") 09/03/2015 1:49 PM VOLTAGE INSPECTOR Body Mass Index 33.11 09/03/2015 1:49 PM VOLTAGE INSPECTOR Plan of Treatment Health Maintenance Due Date Last Done Comments PHYSICAL (COMPREHENSIVE) 1993 EXAM PERTUSSIS VACCINE 1997 TETANUS VACCINE 09/17/2003 CERVICAL CANCER SCREENING 2016 INFLUENZA VACCINE 02/10/2017 Results Not on filefrom Last 3 Months
[2017-07-27] MEDS ORDERED: ONDANSETRON 4 MG/2 ML (SDV) Z0FRAN IVP ONE (00:15)
[2017-07-27] MEDS ORDERED: NS IV 1000 ML 1,000 ML IV STA (00:15)
--- OUTSIDE RECORDS SUMMARY | 2017-07-27 00:21 | XMS REPORT | Continuity of Care Document ---
Author Author Formerly [facility] Address Unknown Phone Unavailable Allergies Active Description Code Type Severity Reaction Onset Reported/Identified Relationship to Patient Clinical Status Yes No Known Drug Allergies [id number] Drug Allergy Mild N/A 01/17/2009 Yes sulfamethoxazole [id number] Drug Allergy Unknown N/A 09/17/2014 Yes tramadol [id number] Drug Allergy Unknown N/A 09/17/2014 Yes trimethoprim [id number] Drug Allergy Unknown N/A 09/17/2014 Yes SULFACETAMIDE 5563 DRUG INGREDI N/A Other 10/10/2015 10/10/2015 Yes SULFACETAMIDE 61158 DRUG INGREDI High Anaphylaxis 10/10/2015 10/10/2015 Yes SULFAMETHOXAZOLE-TRIMETHOPRIM 62600 DRUG INGREDI High Swelling 10/10/2015 Yes SULFAMETHOXAZOLE-TRIMETHOPRIM 72131 DRUG INGREDI Med Swelling 10/10/2015 Yes TRAMADOL 21273 DRUG INGREDI High Swelling 10/10/2015 10/10/2015 Yes TRAMADOL 00826 DRUG INGREDI Med Swelling 10/10/2015 10/10/2015 Medications [...] DESHAUN Fernandez Ot M51.36 06/23/2015 DIONTE GREGORY, MICHALEA Baird Ot 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 06/23/2015 MICHAELA [...] MATERNAL CARE FOR OTH ISOIMMUNIZATION, T 01/13/2016 GLIA GREWAL DO Ot O36.5930 MATERN CARE FOR [...] Ot M51.36 OTHER INTERVERTEBRAL DISC DEGENERATION, 04/09/2016 STEHPANIE SIMMONS Ot J06.9 ACUTE UPPER RESPIRATORY INFECTION, [...] Ot R50.9 FEVER, UNSPECIFIED 07/10/2016 DUSTIN, ALYSE BARLEY STEEPER Ot F17.210 NICOTINE DEPENDENCE, CIGARETTES, UNCOMPL 07/10/2016 DUSTIN, ALYSE BARLEY STEEPER Ot N39.0 URINARY TRACT INFECTION, SITE NOT SPECIF 07/10/2016 DUSTIN, ALYSE BARLEY STEEPER Ot R10.32 LEFT LOWER QUADRANT PAIN 07/11/2016 DUSTIN, ALYSE BARLEY STEEPER Ot F17.210 NICOTINE DEPENDENCE, CIGARETTES, UNCOMPL 07/11/2016 DUSTIN, ALYSE BARLEY STEEPER Ot N39.0 URINARY TRACT INFECTION, SITE NOT SPECIF 07/11/2016 DUSTIN, ALYSE BARLEY STEEPER Ot R10.32 LEFT LOWER QUADRANT PAIN 11/25/2016 [...] PRE- PROCEDURAL LABORATORY EXAMINATION 05/13/2017 YOGI STILES CIVIL PROJECT ENGINEER Ot V28.89 OTHER SPECIFIED SCREENING 05/13/2017 GILA [...] PRE- PROCEDURAL LABORATORY EXAMINATION 05/28/2017 YOGI STILES CIVIL PROJECT ENGINEER Ot V28.89 OTHER SPECIFIED SCREENING 05/28/2017 GILA [...] , THIRD T 06/06/2017 VALERIA MARTINEZ DO S Ot O99.613 DISEASES OF THE DGSTV SYS COMP 06/06/2017 VALERIA MARTINEZ DO S Ot Z3A.32 32 WEEKS GESTATION OF 06/24/2017 GREWAL GILA ALANIS Ot O35.8XX0 MATERNAL CARE FOR OTH ABNORMALITY 06/24/2017 GREWALGILA Pendleton DO Ot Z3A.35 35 WEEKS GESTATION OF 06/25/2017 VALERIA MARTINEZ DO S Ot F19.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, IN R 06/25/2017 VALERIA MARTINEZ DO Ot O47.03 FALSE LABOR BEFORE 37 COMPLETED WEEKS OF 06/25/2017 VALERIA MARTINEZ DO S Ot O99.323 DRUG USE COMPLICATING , THIRD T 06/25/2017 VALERIA MARTINEZ DO S Ot Z3A.35 35 WEEKS GESTATION OF 06/26/2017 MICHAEL CADET MD Ot O47.1 FALSE LABOR AT OR AFTER 37 COMPLETED WEE 06/26/2017 MICHAEL CADET MD Ot Z3A.29 29 WEEKS GESTATION OF 06/26/2017 VALERIA MARTINEZ DO Ot F19.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, IN R 06/26/2017 VALERIA MARTINEZ DO S Ot O34.219 MATERNAL CARE FOR UNSP TYPE SCAR FROM [place] 06/26/2017 VALERIA MARTINEZ DO S Ot O47.03 FALSE LABOR BEFORE 37 COMPLETED WEEKS OF 06/26/2017 VALERIA MARTINEZ DO S Ot O99.323 DRUG USE COMPLICATING , THIRD T 06/26/2017 VALERIA MARTINEZ DO S Ot R10.2 PELVIC AND PERINEAL PAIN 06/26/2017 VALERIA MARTINEZ DO S Ot Z3A.35 35 WEEKS GESTATION OF 06/29/2017 VALERIA MARTINEZ DO S Ot F19.90 OTHER PSYCHOACTIVE SUBSTANCE USE, UNSPEC 06/29/2017 VALERIA MARTINEZ DO S Ot O09.33 SUPRVSN OF PREG W INSUFFICIENT ANTENAT C 06/29/2017 VALERIA MARTINEZ DO S Ot O34.211 MATERN CARE FOR LOW TRANSVERSE SCAR FROM 06/29/2017 MICHELLE ALANISVALERIA Ot O47.03 FALSE LABOR BEFORE 37 COMPLETED WEEKS OF 06/29/2017 MANUELVALERIA DIEHL DO Ot Z3A.35 35 WEEKS GESTATION OF 06/29/2017 MICHELLE ALANISVALERIA Ot Z91.19 [address] [facility] 07/02/2017 GILA GREWAL DO Ot O76 ABNLT IN HEART RATE AND RHYTHM COM 07/02/2017 MICHELLE VALERIA ALANIS Ot F19.90 OTHER PSYCHOACTIVE SUBSTANCE USE, UNSPEC 07/02/2017 MICHELLE VALERIA ALANIS Ot O09.33 SUPRVSN OF PREG W INSUFFICIENT ANTENAT C 07/02/2017 VALERIA MARTINEZ DO Ot O34.211 MATERN CARE FOR LOW TRANSVERSE SCAR FROM 07/02/2017 MICHELLE VALERIA ALANIS Ot O47.03 FALSE LABOR BEFORE 37 COMPLETED WEEKS OF 07/02/2017 MICHELLE VALERIA ALANIS Ot Z3A.35 35 WEEKS GESTATION OF 07/02/2017 VALERIA MARTINEZ DO Ot Z91.19 PATIENT'S NONCOMPLIANCE W [facility] 07/02/2017 GILA GREWAL DO Ot O35.8XX0 MATERNAL CARE FOR OTH ABNORMALITY 07/02/2017 GILA GREWAL DO Ot Z3A.35 35 WEEKS GESTATION OF 07/06/2017 MANUELVALERIA DIEHL DO Ot A59.9 TRICHOMONIASIS, UNSPECIFIED 07/06/2017 VALERIA MARTINEZ DO Ot F19.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, IN R 07/06/2017 VALERIA MARTINEZ DO Ot O34.219 MATERNAL CARE FOR UNSP TYPE SCAR FROM [place] 07/06/2017 VALERIA MARTINEZ DO Ot O47.03 FALSE LABOR BEFORE 37 COMPLETED WEEKS OF 07/06/2017 VALERIA MARTINEZ DO Ot O98.313 OTH INFECT W SEXL MODE OF TRANSMISS COMP 07/06/2017 VALERIA MARTINEZ DO Ot O99.323 DRUG USE COMPLICATING , THIRD T 07/06/2017 VALERIA MARTINEZ DO Ot Z3A.36 36 WEEKS GESTATION OF 07/16/2017 GILA GREWAL DO Ot D62 ACUTE POSTHEMORRHAGIC ANEMIA 07/16/2017 GILA GREWAL DO Ot E66.9 OBESITY, UNSPECIFIED 07/16/2017 GILA GREWAL DO Ot F15.90 OTHER STIMULANT USE, UNSPECIFIED, UNCOMP 07/16/2017 GILA GREWAL DO, Ot F17.210 NICOTINE DEPENDENCE, CIGARETTES, UNCOMPL 07/16/2017 GILA GREWAL DO Ot F32.9 MAJOR DEPRESSIVE DISORDER, SINGLE EPISOD 07/16/2017 GILA GREWAL DO, Ot F41.9 ANXIETY DISORDER, UNSPECIFIED 07/16/2017 GILA GREWAL DO Ot O34.211 MATERN CARE FOR LOW TRANSVERSE SCAR FROM 07/16/2017 GILA GREWAL DO Ot O36.0111 MATERNAL CARE FOR ANTI-D ANTIBODIES, FIR 07/16/2017 GILA GREWAL DO, Ot O36.0931 MATERNAL CARE FOR OTH RHESUS ISOIMMUN, T 07/16/2017 GILA GREWAL DO, Ot O69.2XX0 LABOR AND DEL COMP BY OT CORD ENTANGLE, 07/16/2017 GILA GREWAL DO, Ot O72.2 DELAYED AND SECONDARY HEMORRH 07/16/2017 GILA GREWAL DO, Ot O76 ABNLT IN HEART RATE AND RHYTHM COM 07/16/2017 GILA GREWAL DO Ot O98.813 OTH MATERNAL INFEC/PARASTC DISEASES COMP 07/16/2017 GILA GREWAL DO Ot O99.03 ANEMIA COMPLICATING THE PUERPERIUM 07/16/2017 GILA GREWAL DO Ot O99.213 OBESITY COMPLICATING , THIRD TR 07/16/2017 GILA GREWAL DO Ot O99.333 SMOKING (TOBACCO) COMPLICATING 07/16/2017 GILA GREWAL DO, Ot O99.343 OT MENTAL DISORDERS COMPLICATING PREGNA 07/16/2017 GILA GREWAL DO Ot Z23 ENCOUNTER FOR IMMUNIZATION 07/16/2017 GILA GREWAL DO Ot Z37.0 SINGLE LIVE 07/16/2017 GILA GREWAL DO, Ot Z3A.38 38 WEEKS GESTATION OF 07/16/2017 GILA GREWAL DO, Ot Z68.41 BODY MASS INDEX (BMI) 40.0-44.9, ADULT 07/16/2017 GILA GREWAL DO, Ot Z80.41 FAMILY HISTORY OF MALIGNANT NEOPLASM OF 07/16/2017 GILA GREWAL DO, Ot Z87.440 PERSONAL HISTORY OF URINARY (TRACT) INFE 07/16/2017 GILA GREWAL DO Ot Z87.898 PERSONAL HISTORY OF OTHER SPECIFIED COND 07/16/2017 GILA GREWAL DO Ot O76 ABNLT IN HEART RATE AND RHYTHM COM Procedures Code Description Performed By Performed On 74.1 LOW CERVICAL 08/25/2007 99.77 APPL/ADMIN OF AN ADHESION BARRIER SUBSTA 08/25/2007 72.79 VACUUM EXTRACT DEL NEC 03/21/2009 74.1 LOW CERVICAL 03/21/2009 74.1 LOW CERVICAL 11/02/2012 99.77 APPL/ADMIN OF AN ADHESION BARRIER SUBSTA 11/02/2012 95842 ROUTINE VENIPUNCTURE 06/08/2013 69034 UA OB DIP 06/08/2013 76127 URINE TEST (IN- HOUSE) 06/08/2013 05838 TRICHOMONAS (IN-HOUSE) 06/08/2013 91666 URINE DRUG SCREEN (IN-HOUSE ) 06/08/2013 94401 CBC 06/08/2013 75553 TSH 06/08/2013 46741 HIV ANTIBODIES (RML) 06/09/2013 27001 BLOOD TYPE/Rh FACTOR 06/09/2013 8844857 ANTIBODY SCREEN (RESULT ONLY) 06/09/2013 92414 DIRECT VESTA 06/09/2013 88029 RUBELLA ANTIBODY, IGG 06/09/2013 79155 ANTIBODY IDENTIFICATION 06/09/2013 36338 CULTURE, URINE 06/09/2013 79802 US OB - EARLY <14 WEEKS 06/10/2013 33866 SYPHILLIS-STATE LAB 06/10/2013 29708 HEP B ANTIBODY ([facility] LAB) 06/10/2013 68129 ANTIBODY SCREEN (order) 06/10/2013 44818 GC/CHLAM PROBE (STATE) 06/10/2013 74281 PAP SMEAR 06/10/2013 Q0091 PAP SMEAR OBTAIN SMEAR 06/10/2013 61621 CULTURE UROGENITAL 06/11/2013 [id number] MF US MIDDLE CEREBRAL ARTERY ECHO 11/02/2013 [id number] MF US OB FOLLOW UP TRANSABDOMINAL APPROACH 11/02/2013 [id number] MFM US UMBILICAL ARTERY ECHO 11/02/2013 [id number] MF US BIOPHYSICAL PROFILE WO NON STRESS TESTING 11/02/2013 [id number] ANTIGEN TYPING, RBC, OTHER THAN ABORH 11/21/2013 EWP660 ANTIBODY TITER 11/21/2013 CTE791 ANTIBODY SCREEN 11/21/2013 HMM248 ABO/RH 11/21/2013 YOF537 ANTIBODY IDENTIFICATION 11/21/2013 IJW929 ANTIBODY TITER 11/21/2013 KFQ094 ANTIBODY SCREEN 11/21/2013 MLS640 ANTIBODY IDENTIFICATION 11/21/2013 OWE518 ANTIBODY TITER 11/19/2015 PPN526 ANTIBODY IDENTIFICATION 11/19/2015 VSL3287 LS RATIO 11/19/2015 [id number] LAMELLAR BODY COUNTS 11/19/2015 QEL8173 MISCELLANEOUS TEST 11/19/2015 UCC727 URIC ACID 11/19/2015 LAB20 HEPATIC FUNCTION PANEL 11/19/2015 [id number] CANCELLED TEST 11/19/2015 DSQ777 CBC AND DIFFERENTIAL 11/19/2015 HLO952 ANTIBODY IDENTIFICATION 11/19/2015 16W28W9 EXTRACTION OF POC, LOW CERVICAL, OPEN AP 01/18/2016 [id number] INTRODUCE OTH THERAP SUBST IN EPIDURAL S 01/21/2016 [id number] RESECTION OF BILATERAL FALLOPIAN TUBES, 07/14/2017 43S55P9 EXTRACTION OF POC, LOW CERVICAL, OPEN AP 07/14/2017 Results Test Result Range ANTIBODY TITER - 10/11/15 16:20 ANTIBODY TITER 0, anti-[place] Complete blood count (CBC) with automated white [...] culture - 06/02/16 00:30 Bacterial urine culture [id number] NRG COLONY COUNT >100,000/ML NRG FTX;REPORTABLE SENSITIVITY [...] culture - 07/10/16 12:32 Bacterial urine culture [id number] NRG COLONY COUNT >100,000/ML NRG FTX;REPORTABLE SENSITIVITY REPORTED AT 1652, 07-11-16 NR FREE TEXT ENTRY 2 UNUSUAL RESISTANT PATTERN DETECTED; [facility] FREE TEXT ENTRY 3 ESBL IDENTIFIED. [facility] Bacterial susceptibility panel - 07/10/16 [...] culture - 11/25/16 15:16 Bacterial urine culture [id number] NRG COLONY COUNT >100,000/ML NRG FTX;REPORTABLE PLUS, [...] No 1788 83.6 ng/mL 1789 1.36 1790 60992 mIU/mL 1791 3.11 1792 1.69 ng/mL 1793 0.79 1794 518.84 pg/mL 1795 2.56 1796 4034 4271 480 4123 630 1799 Not increased 1800 1:2456 1801 [...] culture - 05/28/17 20:45 Bacterial urine culture [id number] NRG COLONY COUNT <10,000 NRG FTX;REPORTABLE NO [...] culture - 06/05/17 14:15 Bacterial urine culture [id number] NRG COLONY COUNT <10,000 NRG FTX;REPORTABLE SEE COMMENT NR URINE CULTURE RESULTS PLUS NRG FREE TEXT ENTRY 2 UNUSUAL RESISTANCE PATTERN DETECTED; NR FREE TEXT ENTRY 3 ESBL IDENTIFIED. [facility] Bacterial susceptibility panel - 06/05/17 [...] 11:48 THYROID STIMULATING HORMONE 0.92 u[iU]/mL 0.35-4.94 [id number] - 06/24/17 11:48 Serum or plasma acetaminophen [...] culture - 06/29/17 18:10 Bacterial urine culture [id number] NRG COLONY COUNT 10,000/ML - 100,000/ML NRG [...] ABO+Rh group AN NRG Transfusion band number [id number] NRG Blood group antibody screen NEGATIVE NRG K Ag - 07/14/17 14:30 K Ag K NRG [id number] - 07/14/17 14:30 Serum or plasma acetaminophen [...] blood basophil count (count/volume) 0.0 10*3/uL 0.0-0.1 Urine drug screening test - 07/20/17 19:20 Urine phencyclidine detection by screening method NEGATIVE [...] automated white blood cell (WBC) differential - 07/20/17 19:25 Blood leukocytes automated count (number/volume) 7.5 10*3/uL 4.3-11.0 Blood erythrocytes automated count (number/volume) 3.07 10*6/uL 4.35-5.85 Venous blood hemoglobin measurement (mass/volume) 8.4 g/dL 11.5-16.0 Blood hematocrit (volume fraction) 26 % 35-52 Automated erythrocyte mean corpuscular volume 84 [foz_us] 80-99 Automated erythrocyte mean corpuscular hemoglobin (mass per erythrocyte) 27 pg 25-34 Automated erythrocyte mean corpuscular hemoglobin concentration measurement ( mass/volume) 33 g/dL 32-36 Automated erythrocyte distribution width ratio 14.4 % 10.0-14.5 Automated blood platelet count (count/volume) 467 10*3/uL 130-400 Automated blood platelet mean volume measurement 8.7 [foz_us] 7.4-10.4 Automated blood neutrophils/100 leukocytes 71 % 42-75 Automated blood lymphocytes/100 leukocytes 21 % 12-44 Blood monocytes/100 leukocytes 6 % 0-12 Automated blood eosinophils/100 leukocytes 2 % 0-10 Automated blood basophils/100 leukocytes 0 % 0-10 Blood neutrophils automated count (number/volume) 5.3 10*3 1.8-7.8 Blood lymphocytes automated count (number/volume) 1.5 10*3 1.0-4.0 Blood monocytes automated count (number/volume) 0.4 10*3 0.0-1.0 Automated eosinophil count 0.2 10*3/uL 0.0-0.3 Automated blood basophil count (count/volume) 0.0 10*3/uL 0.0-0.1 PT panel in platelet poor plasma by coagulation assay - 07/20/17 19:25 Prothrombin time (PT) in platelet poor plasma by coagulation assay 13.3 s 12.2-14.7 INR in platelet poor plasma or blood by coagulation assay 1.0 0.8-1.4 Activated partial thromboplastin time (aPTT) in platelet poor plasma bycoagulation assay - 07/20/17 19:25 Activated partial thromboplastin time (aPTT) in platelet poor plasma bycoagulation assay 31 s 24-35 Comprehensive metabolic panel - 07/20/17 19:25 Serum or plasma sodium measurement (moles/volume) 142 mmol/L 135-145 Serum or plasma potassium measurement (moles/volume) 4.0 mmol/L 3.6-5.0 Serum or plasma chloride measurement (moles/volume) 107 mmol/L 98-107 Carbon dioxide 24 mmol/L 21-32 Serum or plasma anion gap determination (moles/volume) 11 mmol/L 5-14 Serum or plasma urea nitrogen measurement (mass/volume) 10 mg/dL 7-18 Serum or plasma creatinine measurement (mass/volume) 0.68 mg/dL 0.60-1.30 Serum or plasma urea nitrogen/creatinine mass ratio 15 NRG Serum or plasma creatinine measurement with calculation of estimated glomerular filtration rate > NRG Serum or plasma glucose measurement (mass/volume) 82 mg/dL 70-105 Serum or plasma calcium measurement (mass/volume) 8.8 mg/dL 8.5-10.1 Serum or plasma total bilirubin measurement (mass/volume) 0.2 mg/dL 0.1-1.0 Serum or plasma alkaline phosphatase measurement (enzymatic activity/volume) 168 U/L 40-136 Serum or plasma aspartate aminotransferase measurement (enzymatic activity/ volume) 16 U/L 5-34 Serum or plasma alanine aminotransferase measurement (enzymatic activity/volume ) 17 U/L 0-55 Serum or plasma protein measurement (mass/volume) 6.8 g/dL 6.4-8.2 Serum or plasma albumin measurement (mass/volume) 3.2 g/dL 3.2-4.5 Magnesium - 07/20/17 19:25 Magnesium 1.6 mg/dL 1.8-2.4 Serum or plasma troponin i.cardiac measurement (mass/volume) - 07/20/17 19:25 Serum or plasma troponin i.cardiac measurement (mass/volume) < ng/ mL <0.30 Serum or plasma lithium measurement (moles/volume) - 07/20/17 19:25 BNP level 68.0 pg/mL <100.0 Encounters ACCT No. Visit Date/Time Discharge Status Pt. Type Provider Facility Loc./Unit Complaint [id number] 06/08/2013 14:23:00 06/08/2013 23:59:59 CLS Outpatient GHADA KABA DO [place] [id number] 04/26/2013 11:10:00 04/26/2013 23:59:59 CLS Outpatient SHARRON HEAD APRN [id number] 07/20/2017 17:33:00 07/20/2017 20:30:00 DIS Emergency ARMAAN SIMON ALANIS [facility] ER SWELLING BILAT FEET, HEADACHE, 6 DAYS [id number] 07/14/2017 14:10:00 07/16/2017 09:45:00 DIS Inpatient GILA GREWAL DO [facility] LDRP PREVIOUS [id number] 07/06/2017 12:01:00 07/06/2017 14:02:00 DIS Outpatient VALERIA MARTINEZ DO [facility] WSo ABD PAIN [id number] 06/29/2017 17:58:00 06/29/2017 19:29:00 DIS Outpatient VALERIA MARTINEZ DO [facility] WSo LEAKING FLUID/ CONTRACTIONS [id number] 06/26/2017 09:35:00 06/26/2017 10:24:00 DIS Outpatient VALER[facility]Z DO [facility] CONTR[facility] [id number] 06/25/2017 13:51:00 06/25/2017 23:59:59 CLS Outpatient CARMINA ALANIS GILA Owen [facility] LABOR [id number] 06/25/2017 19:27:00 06/25/2017 21:25:00 DIS Outpatient VALERIA MARTINEZ DO [facility] LOW BACK PAIN, DECREASED MOVEMENT [id number] 06/24/2017 10:45:00 06/24/2017 17:50:00 DIS Outpatient CARMINA GILA [facility] BIOPHYSICAL PROFILE [id number] 06/05/2017 14:03:00 06/06/2017 10:56:00 DIS Inpatient VALERIA MARTINEZ DO [facility] LDRP NAUSEA,VOMITING, DIARRHEA [id number] 05/28/2017 20:34:00 05/28/2017 22:00:00 DIS Outpatient VALERIA MARTINEZ DO [facility] BLOOD IN STOOL; CRAMPING;BACK PAIN [id number] 05/13/2017 19:30:00 05/13/2017 20:55:00 DIS Outpatient HELIO GREGORY, MICHAEL Wood [facility] CONTRACTIONS [id number] 12/25/2016 14:09:00 12/25/2016 23:59:59 CLS Outpatient ANGEL GREGORY, RAJESH Gaines [facility] RAD DATING,9 WKS GESTATION Z3A.09 [id number] 11/25/2016 15:13:00 11/25/2016 16:58:00 DIS Emergency SIMON CROOK DO [facility] ER CP [id number] 07/10/2016 12:29:00 07/10/2016 16:36:00 DIS Emergency ALYSE CHAN [facility] ER KIDNEY PAIN [id number] 06/16/2016 23:08:00 06/17/2016 00:14:00 DIS Emergency SHARRON MELO DO [facility] ER SORE THROAT,BODY ACHE, FEVER [id number] 06/02/2016 00:21:00 06/02/2016 02:26:00 DIS Emergency MICHAELA RAPP MD [facility] ER BACK PAIN [id number] 04/09/2016 11:41:00 04/09/2016 13:00:00 DIS Emergency STEPHANIE SIMMONS [facility] ER COUGH/CONGESTION RUNNY NOSE [id number] 02/01/2016 12:21:00 02/01/2016 23:59:59 CLS Preadmit GILA GREWAL DO [id number] 01/18/2016 06:03:00 01/21/2016 16:50:00 DIS Inpatient GILA GREWAL DO [facility] LDRP PREVIOUS SECTION [id number] 01/16/2016 12:44:00 01/16/2016 13:30:00 DIS Outpatient GILA GREWAL DO [facility] PREOP PREVIOUS SECTION [id number] 01/13/2016 14:16:00 01/13/2016 15:47:00 DIS Outpatient GILA GREWAL DO [facility] ACUTE K ANTIBODIES, ACUTE D ANTIBODIES [id number] 12/31/2015 02:53:00 12/31/2015 04:47:00 DIS Outpatient MICHAEL CADET MD [facility] BODYACHE FROM FALL , N/V [id number] 12/31/2015 02:10:00 12/31/2015 02:46:00 DIS Emergency KEO CORREIA MD [facility] ER 36 WKS PREG, N/V, BODY ACHES FROM FALL [id number] 12/02/2015 22:08:00 12/02/2015 23:45:00 DIS Outpatient TYRONE PAL MD [facility] CONTRACTIONS [id number] 08/30/2015 08:33:00 08/30/2015 10:06:00 DIS Emergency MARVIN HANSON MD [facility] ER VOMITING/DIARRHEA 19 WKS PREG [id number] 08/18/2015 07:17:00 08/18/2015 10:12:00 DIS Emergency MOO GREGORY, ANGELI S [facility] ER SEVERE LOWER ABD PAIN AT 17 WEEKS [id number] 07/23/2015 23:15:00 07/25/2015 09:15:00 DIS Inpatient GILA GREWAL DO [facility] LDRP GENERALIZED ABD PAIN,[place]I ,[place] [id number] 07/20/2015 12:50:00 07/22/2015 09:25:00 DIS Inpatient GILA GREWAL DO [facility] LDRP PYELONEPHRITIS WITH PERSISTENT VOMITING [id number] 07/17/2015 20:53:00 07/18/2015 00:52:00 DIS Emergency SIMON CROOK DO [facility] ER ABD PAIN/11 WEEKS PREG [id number] 06/22/2015 23:02:00 06/23/2015 02:34:00 DIS Emergency MICHAELA RAPP MD [facility] ER VOMITING;9 WKS PREG [id number] 05/10/2015 13:03:00 05/10/2015 23:59:59 CLS Outpatient SAHARA GREGORY, DESHAUN Fernandez [facility] RAD INJ LUMBAR SPINE PAIN [id number] 02/17/2015 17:20:00 02/17/2015 17:51:00 DIS Emergency SHARRON MELO DO [facility] ER SORE THROAT/CHEST CONGESTION [id number] 06/22/2014 13:02:00 06/23/2014 17:49:00 DIS Outpatient XAVI GREGORY, MINE Berger [facility] SDC CHOLELITHIASIS [id number] 06/21/2014 09:04:00 06/21/2014 23:59:59 CLS Outpatient GILA GREWAL DO [facility] RAD ABD PAIN, GALL STONES [id number] 06/17/2013 13:43:00 06/17/2013 23:59:59 CLS Outpatient YOGI STILES APRN [facility] RAD DATING [id number] 11/02/2012 09:00:00 11/05/2012 12:30:00 DIS Inpatient GILA GREWAL DO [facility] WS REPEAT SECTION [id number] 07/27/2017 00:08:00 ACT Emergency MICHAELA RAPP MD [facility] ER BLEEDING [id number] 04/09/2017 05:25:00 Document Registration [id number] 04/09/2017 05:25:00 Document Registration [id number] 04/09/2017 05:11:00 Document Registration [id number] 04/09/2017 05:11:00 Document Registration [id number] 04/09/2017 05:11:00 Document Registration [id number] 04/09/2017 05:11:00 Document Registration [id number] 04/09/2017 05:11:00 Document Registration [id number] 04/09/2017 05:11:00 Document Registration [id number] 04/09/2017 05:11:00 Document Registration [id number] 04/09/2017 05:11:00 Document Registration [id number] 04/09/2017 05:11:00 Document Registration [id number] 04/09/2017 05:11:00 Document Registration [id number] 04/09/2017 05:11:00 Document Registration [id number] 04/09/2017 05:11:00 Document Registration [id number] 04/09/2017 05:11:00 Document Registration [id number] 04/09/2017 05:11:00 Document Registration [id number] 04/09/2017 05:11:00 Document Registration [id number] 04/09/2017 05:11:00 Document Registration [id number] 04/09/2017 05:11:00 Document Registration [id number] 04/09/2017 05:11:00 Document Registration [id number] 02/17/2015 17:19:00 Document Registration [id number] 09/17/2014 20:25:00 Document Registration [id number] 10/29/2012 11:38:00 Document Registration [id number] 10/26/2012 13:00:00 Document Registration [id number] 10/13/2012 19:51:00 Document Registration [id number] 10/09/2012 13:51:00 Document Registration [id number] 07:40:00 Document Registration [id number] 08/18/2012 10:40:00 Document Registration [id number] 12/10/2011 12:49:00 Document Registration [id number] 05/26/2011 15:07:00 Document Registration [id number] 03/24/2011 21:34:00 Document Registration [id number] 10/22/2010 10:06:00 Document Registration [id number] 10/21/2010 15:02:00 Document Registration [id number] 03/21/2009 05:47:00 Document Registration [id number] 03/14/2009 10:11:00 Document Registration [id number] 01/21/2009 09:35:00 Document Registration [id number] 01/17/2009 16:20:00 Document Registration [id number] 08/25/2007 06:05:00 Document Registration [id number] 08/06/2007 21:31:00 Document Registration [id number] 07/27/2007 18:45:00 Document Registration [id number] 06/09/2007 11:51:00 Document Registration [id number] 06/04/2007 13:13:00 Document Registration [id number] 05/19/2007 11:22:00 Document Registration [id number] 04/13/2017 08:12:28 04/13/2017 23:59:59 CLS Outpatient [facility] [id number] 04/13/2017 07:52:23 04/13/2017 23:59:59 CLS Outpatient DALIA PRADO [facility] [id number] 04/13/2017 07:51:17 04/13/2017 23:59:59 CLS Outpatient [facility] [id number] 03/19/2017 08:05:50 03/19/2017 23:59:59 CLS Outpatient [facility] [id number] 03/19/2017 07:55:22 03/19/2017 23:59:59 CLS Outpatient [facility] [id number] 03/19/2017 07:55:09 03/19/2017 23:59:59 CLS Outpatient DIONE SCHROEDER [facility] [id number] 02/18/2017 09:15:56 02/18/2017 23:59:59 CLS Outpatient [facility] [id number] 02/18/2017 08:26:14 02/18/2017 23:59:59 CLS Outpatient [facility] [id number] 02/18/2017 08:25:53 02/18/2017 23:59:59 CLS Outpatient DALIA PRADO [facility] [id number] 12/24/2015 13:16:42 12/24/2015 23:59:59 CLS Outpatient [facility] [id number] 12/24/2015 12:53:08 12/24/2015 23:59:59 CLS Outpatient [facility] [facility] [id number] 12/13/2015 10:39:10 12/13/2015 23:59:59 CLS Outpatient [facility] [facility] [id number] 12/13/2015 10:23:49 12/13/2015 23:59:59 CLS Outpatient [facility] [id number] 11/01/2015 13:11:30 11/01/2015 23:59:59 CLS Outpatient [facility] [id number] 11/01/2015 12:41:57 11/01/2015 23:59:59 CLS Outpatient MARIELLA [facility] [id number] 10/11/2015 17:56:07 Document Registration [id number] 10/11/2015 16:04:34 Document Registration [id number] 10/11/2015 15:00:48 Document Registration [id number] 10/11/2015 14:58:43 Document Registration [id number] 10/27/2013 09:32:46 Document Registration [id number] 10/13/2013 10:13:31 Document Registration [id number] 09/29/2013 07:43:16 Document Registration [id number] 09/15/2013 10:42:33 Document Registration [id number] 09/01/2013 10:44:59 Document Registration [id number] 08/04/2013 11:16:36 Document Registration
--- NOTE | 2017-07-27 00:28 | ED Abdominal Pain ---
General Chief Complaint: -Female Stated Complaint: BLEEDING Source of Information: Patient, EMS Exam Limitations: No Limitations History of Present Illness Time Seen By Provider: 00:10 Initial Comments Here with report of significant vaginal bleeding with large clots for the last 2 days. Apparently had and post hemorrhage. This apparently improved and patient was discharged. Seen on 07/20/17 and had hemoglobin of 8.4 at that time. Complains of menstrual type cramping but states it's much worse and any menstrual that she has had and complains of back pain associated with this. States that that is better right now. Reports soaking multiple pads today. There was some question about police being involved was about something and she reported the vaginal bleeding and pain and ultimately was transported by EMS. She reports being upset about her baby being placed in states custody because of an accurate lab test done here showing methamphetamine. 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 Reports nausea currently but states pain is better with the Tylenol that she took earlier. Timing/Duration: 2-3 Days Severity/Quality: Moderate, Severe, Cramping Location: Suprapubic Radiation: Back Activities at Onset: None Modifying Factors: Improves With Resting Associated Symptoms: Back Pain, No Chest Pain, No Fever/Chills, Fatigue, Nausea /Vomiting, Weakness Allergies and Home Medications Allergies Coded Allergies: sulfamethoxazole (Verified Allergy, Unknown, 09/17/14) tramadol (Verified Allergy, Unknown, 09/17/14) trimethoprim (Verified Allergy, Unknown, 09/17/14) Home Medications Calcium Carbonate 200 Mg Tab.chew, 200 MG PO Q4H, (Reported) Docusate Sodium 100 Mg Capsule, 100 MG PO BID, #60 Prescribed by: GILA GREWAL on 07/16/17 0858 Guaifenesin/Dextromethorphan 5 Ml Syrup, 10 ML PO Q4H PRN for COUGH, #120 Prescribed by: GILA GREWAL on 07/16/17 0858 Hydrocodone/Acetaminophen 1 Each Tablet, 1 EA PO q6hr PRN for PAIN-MODERATE, #30 Prescribed by: GILA GREWAL on 07/16/17 0858 Ibuprofen 600 Mg Tablet, 600 MG PO Q6H, #60 Prescribed by: GILA GREWAL on 07/16/17 0858 Iron Polysaccharide Complex 150 Mg Capsule, 150 MG PO BID WITH MEALS, #120 Ref 1 Prescribed by: GILA GREWAL on 07/16/17 0858 Vit/Iron Fumarate/FA 1 Each Tablet, 1 EACH PO DAILY, (Reported) Review of Systems Constitutional: see HPI, No chills, No fever, malaise EENTM: No Symptoms Reported Respiratory: No Symptoms Reported Cardiovascular: No Symptoms Reported Gastrointestinal: See HPI, Abdominal Pain, Nausea, Denies Vomiting Genitourinary: See HPI, Pain Musculoskeletal: no symptoms reported All Other Systems Reviewed Negative Unless Noted: Yes Past Mhdlqao-Qgwznn-Edjrtj Hx Patient Social History Alcohol Use: Denies Use Recreational Drug Use: No (States that she is clean but does have history) Drug of Choice: THC, METH/AMPHETAMINES, COCAINE, BENZO'S, OPIATES Smoking Status: Current Everyday Smoker Type Used: Cigarettes Recent Hopitalizations: No Immunizations Up To Date Tetanus Booster (TDap): More than 5yrs Date of Influenza Vaccine: Jul 16, 2017 Seasonal Allergies Seasonal Allergies: No Surgeries History of Surgeries: Yes ( X 6; LEEP; CLOSED REDUCION OF ANKLE FX) Surgeries: Adenoidectomy, Section, Gallbladder, Orthopedic Respiratory History of Respiratory Disorde: No Cardiovascular History of Cardiac Disorders: No Neurological History of Neurological Disord: No Reproductive System Hx Reproductive Disorders: Yes (CERVICAL DYSPLASIA--S/P LEEP) Sexually Transmitted Disease: Yes (CHLAMYDIA, HPV) HIV/AIDS: No Female Reproductive Disorders: Denies Genitourinary History of Genitourinary Disor: Yes Genitourinary Disorders: Bladder Infection, UTI-Chronic Gastrointestinal History of Gastrointestinal Di: Yes Gastrointestinal Disorders: Gastroesophageal Reflux Musculoskeletal History of Musculoskeletal Dis: Yes (SELF-REPORTED BACK PAIN/DEGENERATIVE DISC DISEASE; ANKLE FX) Musculoskeletal Disorders: Degenerate Disk Disease, Chronic Back Pain, Fractures Endocrine History of Endocrine Disorders: No HEENT History of HEENT Disorders: No Cancer History of Cancer: No Psychosocial History of Psychiatric Problem: Yes (POLYSUBSTANCE ABUSE) Behavioral Health Disorders: Anxiety, Depression Integumentary History of Skin or Integumenta: No Blood Transfusions History of Blood Disorders: Yes (ANEMIA; BLOOD TYPE A NEGATIVE; ANTI TAYLOR AND ANTI D ANTIBODIES) Adverse Reaction to a Blood Tr: No Reviewed Nursing Assessment Reviewed/Agree w Nursing PMH: Yes Family Medical History Significant Family History: Cancer, Hypertension Family Medial History: Arthritis (pt's mother) FH: cancer (grandmother) Physical Exam Vital Signs VS - Last 72 Hours, by Label 07/27/17 00:07 Temp 98.7 Pulse 83 Resp 20 B/P (MAP) 131/90 (104) Pulse Ox 96 O2 Delivery Room Air Capillary Refill : General Appearance: WD/WN, no apparent distress HEENT: PERRL/EOMI, pharynx normal Neck: full range of motion, supple Respiratory: lungs clear, normal breath sounds Cardiovascular: regular rate, rhythm, no murmur Peripheral Pulses: 2+ Dorsalis Pedis (R), 2+ Left Dors-Pedis (L), 2+ Radial Pulses (R), 2+ Radial Pulses (L) Gastrointestinal: soft, tenderness (Suprapubic), other ( postoperative wound is clean, dry and intact without signs of infection or other concerns. Appears to be healing well.) Extremities: non-tender, normal inspection Back: normal inspection, no CVA tenderness, no vertebral tenderness Neurologic/Psychiatric: no motor/sensory deficits, alert, oriented x 3 Skin: normal color, warm/dry, No pallor Progress/Results/Core Measures Results/Orders Lab Results Laboratory Tests Test 07/27/17 00:24 Range/Units White Blood Count 8.4 4.3-11.0 10^3/uL Red Blood Count 3.49 L 4.35-5.85 10^6/uL Hemoglobin 9.2 L 11.5-16.0 G/DL Hematocrit 29 L 35-52 % Mean Corpuscular Volume 83 80-99 FL Mean Corpuscular Hemoglobin 26 25-34 PG Mean Corpuscular Hemoglobin Concent 32 32-36 G/DL Red Cell Distribution Width 14.5 10.0-14.5 % Platelet Count 519 H 130-400 10^3/uL Mean Platelet Volume 8.8 7.4-10.4 FL Neutrophils (%) (Auto) 74 42-75 % Lymphocytes (%) (Auto) 19 12-44 % Monocytes (%) (Auto) 5 0-12 % Eosinophils (%) (Auto) 2 0-10 % Basophils (%) (Auto) 1 0-10 % Neutrophils # (Auto) 6.2 1.8-7.8 X 10^3 Lymphocytes # (Auto) 1.6 1.0-4.0 X 10^3 Monocytes # (Auto) 0.4 0.0-1.0 X 10^3 Eosinophils # (Auto) 0.2 0.0-0.3 10^3/uL Basophils # (Auto) 0.1 0.0-0.1 10^3/uL Sodium Level 140 135-145 MMOL/L Potassium Level 3.4 L 3.6-5.0 MMOL/L Chloride Level 104 98-107 MMOL/L Carbon Dioxide Level 23 21-32 MMOL/L Anion Gap 13 5-14 MMOL/L Blood Urea Nitrogen 12 7-18 MG/DL Creatinine 0.71 0.60-1.30 MG/DL Estimat Glomerular Filtration Rate > 60 BUN/Creatinine Ratio 17 Glucose Level 94 70-105 MG/DL Calcium Level 9.5 8.5-10.1 MG/DL Total Bilirubin 0.2 0.1-1.0 MG/DL Aspartate Amino Transf (AST/SGOT) 14 5-34 U/L Alanine Aminotransferase (ALT/SGPT) 13 0-55 U/L Alkaline Phosphatase 111 40-136 U/L Total Protein 7.1 6.4-8.2 GM/DL Albumin 3.7 3.2-4.5 GM/DL My Orders Orders - MICHAELA RAPP MD Cbc With Automated Diff (07/27/17 00:15) Comprehensive Metabolic Panel (07/27/17 00:15) Type And Screen (07/27/17 00:15) Ondansetron Injection (Zofran Injectio (07/27/17 00:15) Ns Iv 1000 Ml (Sodium Chloride 0.9%) (07/27/17 00:15) Saline Lock/Iv-Start (07/27/17 00:15) Medications Given in ED Current Medications Medications Dose Ordered Sig/Cadence Route Start Time Stop Time Status Last Admin Dose Admin Ondansetron HCl 4 mg ONCE ONCE IVP 07/27/17 00:15 07/27/17 00:20 DC 07/27/17 01:04 4 MG Vital Signs/I&O Vital Sign - Last 12Hours 07/27/17 00:07 Temp 98.7 Pulse 83 Resp 20 B/P (MAP) 131/90 (104) Pulse Ox 96 O2 Delivery Room Air Progress Note : Progress Note Seen and evaluated. For this reviewed. IV, labs, normal saline 1 L bolus and Zofran 4 mg IV. Patient declined pain medicine. Type and screen ordered and we will initiate type and cross if hemoglobin has worsened. Monitor patient. 0220: Hemoglobin has improved to 9.2 now. Overall feels better after Zofran. She is going to see Dr. Grewal the morning and so we will defer pelvic exam until seen at the clinic. Zofran go pack given. Discharged home with return precautions. Patient verbalize understanding instructions and agreement with plan. Copy of chart to Dr. Grewal. Departure Impression Impression: Primary Impression: Nausea and vomiting Qualified Codes: R11.2 - Nausea with vomiting, unspecified Additional Impression: bleeding Qualified Codes: O72.1 - Other immediate hemorrhage Disposition: HOME, SELF-CARE Condition: Improved Departure-Patient Inst. Decision time for Depature: 02:30 Referrals: GILA GREWAL DO (PCP) Primary Care Physician DESHAUN SHOEMAKER MD (Family) Primary Care Physician Patient Instructions: Nausea and Vomiting, Adult (DC) Add. Discharge Instructions: All discharge instructions reviewed with patient and/or family. Voiced understanding. Clear liquid diet for 24 hours and then advance as tolerated. Follow-up with Dr. Grewal in the morning. Return for worse pain, fever, vomiting, weakness, breathing problems or other concerns as needed. Take medications as directed. Copy Copies To 1: GILA GREWAL TIMOTHY D MD Jul 27, 2017 00:28
[2017-07-27 00:34] LABS: BASOPHILS # (AUTO) 0.1 10^3/uL (0.0-0.1); BASOPHILS % (AUTO) 1 % (0-10); EOSINOPHILS # (AUTO) 0.2 10^3/uL (0.0-0.3); EOSINOPHILS % (AUTO) 2 % (0-10); HEMATOCRIT 29 % (35-52); HEMOGLOBIN 9.2 G/DL (11.5-16.0); LYMPHOCYTES # (AUTO) 1.6 X 10^3 (1.0-4.0); LYMPHOCYTES % (AUTO) 19 % (12-44); MEAN CORPUSCULAR HEMOGLOBIN 26 PG (25-34); MEAN CORPUSCULAR HGB CONC 32 G/DL (32-36); MEAN CORPUSCULAR VOLUME 83 FL (80-99); MEAN PLATELET VOLUME 8.8 FL (7.4-10.4); MONOCYTES # (AUTO) 0.4 X 10^3 (0.0-1.0); MONOCYTES % (AUTO) 5 % (0-12); NEUTROPHILS # (AUTO) 6.2 X 10^3 (1.8-7.8); NEUTROPHILS % (AUTO) 74 % (42-75); PLATELET COUNT 519 10^3/uL (130-400); RED BLOOD COUNT 3.49 10^6/uL (4.35-5.85); RED CELL DISTRIBUTION WIDTH 14.5 % (10.0-14.5); WHITE BLOOD COUNT 8.4 10^3/uL (4.3-11.0)
[2017-07-27 00:55] LABS: ALANINE AMINOTRANSFERASE 13 U/L (0-55); ALBUMIN 3.7 GM/DL (3.2-4.5); ALKALINE PHOSPHATASE 111 U/L (40-136); BILIRUBIN,TOTAL 0.2 MG/DL (0.1-1.0); BUN/CREATININE RATIO 17; CALCIUM 9.5 MG/DL (8.5-10.1); CARBON DIOXIDE 23 MMOL/L (21-32); CHLORIDE 104 MMOL/L (98-107); CREATININE SERUM 0.71 MG/DL (0.60-1.30); GFR ESTIMATED > 60; GLUCOSE 94 MG/DL (70-105); POTASSIUM 3.4 MMOL/L (3.6-5.0); SODIUM 140 MMOL/L (135-145); TOTAL PROTEIN 7.1 GM/DL (6.4-8.2)
[2017-07-27] MEDS ORDERED: RX-ONDANSETRON 4 MG ODT (ZOFRAN) PPK #4 PO STA (02:32)
[2017-07-27 02:40] VITALS: BP 136/77
== END 2017-07-27 02:40 | disposition home or self-care (01) ==
LOC: EDUNIT# 00:06 → ER 00:08
DX: O72.1 Other immediate postpartum hemorrhage (principal); O99.89 Other specified diseases and conditions complicating pregnancy, childbirth and the puerperium; R11.2 Nausea with vomiting, unspecified; O99.345 Other mental disorders complicating the puerperium; F32.9 Major depressive disorder, single episode, unspecified; F41.9 Anxiety disorder, unspecified; O99.325 Drug use complicating the puerperium; F12.10 Cannabis abuse, uncomplicated; F15.10 Other stimulant abuse, uncomplicated; F14.10 Cocaine abuse, uncomplicated; O99.335 Smoking (tobacco) complicating the puerperium; F17.210 Nicotine dependence, cigarettes, uncomplicated; Z86.19 Personal history of other infectious and parasitic diseases; Z90.89 Acquired absence of other organs; Z87.59 Personal history of other complications of pregnancy, childbirth and the puerperium
CPT/HCPCS: 36415; 80053; 85025; 86850; 86900; 86901; 96361; 96374

== ENCOUNTER 2017-08-25 15:27 | Emergency (ER) | payer MEDICAID ==
[~2017-08-25] VITALS: Ht 157.5 cm; Wt 98.9 kg
[~2017-08-25 15:27] MED LIST changes: +HYDR-34 PO; -HYDR-3816 PO
[2017-08-25 15:30] VITALS: BP 139/90
--- NOTE | 2017-08-25 15:42 | ED EENT ---
History of Present Illness General Stated Complaint: FEVER, BODY ACHES Source: patient, other Exam Limitations: no limitations History of Present Illness Date Seen by Provider: Aug 25, 2017 Time Seen by Provider: 15:29 Initial Comments Patient presents to ER by private conveyance with a significant other a chief complaint for 2-3 days she's had progressively worsening symptoms of ears feeling full, nasal congestion, sore throat, dry nonproductive cough. She smokes about half pack a day and she says she relapsed and methamphetamine about 2 days ago. No known flu exposure. She's had a fever maximum this morning 102.4F. She took some Motrin around noon and she says that helped a little bit with her fever. Body aches and malaise. No nausea, dysuria, discharge, diarrhea. She denies a history of COPD, asthma or other lung disease. Allergies and Home Medications Allergies Coded Allergies: sulfamethoxazole (Verified Allergy, Unknown, 09/17/14) tramadol (Verified Allergy, Unknown, 09/17/14) trimethoprim (Verified Allergy, Unknown, 09/17/14) Home Medications Benzonatate 100 Mg Capsule, 100 MG PO Q6H PRN for COUGH, #30 Ref 0 Prescribed by: SANTANA TAYLOR on 08/25/17 1546 Calcium Carbonate 200 Mg Tab.chew, 200 MG PO Q4H, (Reported) Docusate Sodium 100 Mg Capsule, 100 MG PO BID, #60 Prescribed by: GILA GREWAL on 07/16/17 0858 Guaifenesin/Dextromethorphan 5 Ml Syrup, 10 ML PO Q4H PRN for COUGH, #120 Prescribed by: GILA GREWAL on 07/16/17 0858 Hydrocodone/Acetaminophen 1 Each Tablet, 1 EA PO q6hr PRN for PAIN-MODERATE, #30 Prescribed by: GILA GREWAL on 07/16/17 0858 Ibuprofen 600 Mg Tablet, 600 MG PO Q6H, #60 Prescribed by: GILA GREWAL on 07/16/17 0858 Iron Polysaccharide Complex 150 Mg Capsule, 150 MG PO BID WITH MEALS, #120 Ref 1 Prescribed by: GILA GREWAL on 07/16/17 0858 Vit/Iron Fumarate/FA 1 Each Tablet, 1 EACH PO DAILY, (Reported) Review of Systems Constitutional: chills, diaphoresis, fever, malaise Eyes: Denies Blindness, Denies Blurred Vision Ears: Dizziness, Denies Bloody Discharge, Denies Clear Discharge Nose: denies clots, congestion, denies epistaxis, denies pain Mouth: denies clots, denies loose teeth, denies pain, denies swelling Throat: pain, swelling, denies hoarse, difficulty with fluids Respiratory: cough, No phlegm, No short of breath, No wheezing Cardiovascular: No chest pain, No palpitations Gastrointestinal: No abdominal pain, No constipation, No diarrhea, No nausea, No vomiting : No (tubes are tied) Past Tygisoh-Obcolj-Ugupdu Hx Patient Social History Drug of Choice: THC, METH/AMPHETAMINES, COCAINE, BENZO'S, OPIATES Type Used: Cigarettes Recent Foreign Travel: No Contact w/Someone Who Travel: No Recent Hopitalizations: No Immunizations Up To Date Tetanus Booster (TDap): More than 5yrs Date of Influenza Vaccine: Jul 16, 2017 Seasonal Allergies Seasonal Allergies: No Surgeries History of Surgeries: Yes ( X 6; LEEP; CLOSED REDUCION OF ANKLE FX) Surgeries: Adenoidectomy, Section, Gallbladder, Orthopedic Respiratory History of Respiratory Disorde: No Cardiovascular History of Cardiac Disorders: No Neurological History of Neurological Disord: No Reproductive System Hx Reproductive Disorders: Yes (CERVICAL DYSPLASIA--S/P LEEP) Sexually Transmitted Disease: Yes (CHLAMYDIA, HPV) HIV/AIDS: No Female Reproductive Disorders: Denies Genitourinary History of Genitourinary Disor: Yes Genitourinary Disorders: Bladder Infection, UTI-Chronic Gastrointestinal History of Gastrointestinal Di: Yes Gastrointestinal Disorders: Gastroesophageal Reflux Musculoskeletal History of Musculoskeletal Dis: Yes (SELF-REPORTED BACK PAIN/DEGENERATIVE DISC DISEASE; ANKLE FX) Musculoskeletal Disorders: Degenerate Disk Disease, Chronic Back Pain, Fractures Endocrine History of Endocrine Disorders: No HEENT History of HEENT Disorders: No Cancer History of Cancer: No Psychosocial History of Psychiatric Problem: Yes (POLYSUBSTANCE ABUSE) Behavioral Health Disorders: Anxiety, Depression Integumentary History of Skin or Integumenta: No Blood Transfusions History of Blood Disorders: Yes (ANEMIA; BLOOD TYPE A NEGATIVE; ANTI TAYLOR AND ANTI D ANTIBODIES) Adverse Reaction to a Blood Tr: No Family Medical History Significant Family History: Cancer, Hypertension Family Medial History: Arthritis (pt's mother) FH: cancer (grandmother) Physical Exam Vital Signs Vital Signs - First Documented 08/25/17 15:30 Temp 100.2 Pulse 116 Resp 18 B/P (MAP) 139/90 (106) Pulse Ox 98 General Appearance: WD/WN, mild distress Eyes: bilateral eye normal inspection, bilateral eye PERRL, bilateral eye EOMI Ears: bilateral ear auricle normal, bilateral ear canal normal, bilateral ear TM normal Nose: normal inspection, No active bleeding, No discharge Mouth/Throat: No dental tenderness, tonsillar swelling (1+), other (tonsillar erythema without exudate) Neck: non-tender, full range of motion, supple, normal inspection Cardiovascular: normal peripheral pulses, regular rate, rhythm, no edema Respiratory: chest non-tender, lungs clear, normal breath sounds, no respiratory distress, no accessory muscle use Gastrointestinal: non tender, soft Neurologic/Psychiatric: no motor/sensory deficits, alert, normal mood/affect, oriented x 3 Skin: normal color, warm/dry Progress/Results/Core Measures Results/Orders Lab Results Laboratory Tests Test 08/25/17 15:35 Range/Units Group A Streptococcus Screen NEGATIVE NEGATIVE Micro Results Microbiology 08/25/17 Influenza Types A,B Antigen (TRACEY) - Final, Complete My Orders Orders - SANTANA TAYLOR Ketorolac Injection (Toradol Injection) (08/25/17 15:45) Influenza A And B Antigens (08/25/17 15:34) Rapid Strep A Screen (08/25/17 15:34) Medications Given in ED Current Medications Medications Dose Ordered Sig/Cadence Route Start Time Stop Time Status Last Admin Dose Admin Ketorolac Tromethamine 30 mg ONCE ONCE IM 08/25/17 15:45 08/25/17 15:46 DC 08/25/17 15:50 30 MG Vital Signs/I&O Vital Sign - Last 12Hours 08/25/17 15:30 Temp 100.2 Pulse 116 Resp 18 B/P (MAP) 139/90 (106) Pulse Ox 98 Progress Note : Time: 15:43 Progress Note Flulike symptoms. We discussed conservative management. We'll give her a cough suppressant as well as instructions to take NSAIDs and Tylenol. Ketorolac IM Departure Impression Impression: Primary Impression: Influenza Disposition: 01 HOME, SELF-CARE Condition: Stable Departure-Patient Inst. Decision time for Depature: 16:13 Referrals: DESHAUN SHOEMAKER MD (PCP/Family) Primary Care Physician Patient Instructions: Flu, Adult (DC) Add. Discharge Instructions: Drink lots of fluids. Sports drinks like Gatorade or Powerade would be appropriate. Tylenol 1000 mg every 8 hours and addition to ibuprofen 800 mg every 8 hours. You may also use Aleve or Naprosyn 2 capsules twice a day instead of ibuprofen. You may use [id number] remedies as you see fit just make sure that you're counting how much Tylenol is included in those remedies. I 'll send a prescription for Tessalon Perle to be taken 1 capsule every 6 hours as needed for cough. Use a humidifier, vapor rubs such as Vicks and salt water gargles for sore throat and congestion. Scripts Benzonatate (Tessalon Perle) 100 Mg Capsule 100 MG PO Q6H Y for COUGH, #30 CAP 0 Refills Prov: SANTANA TAYLOR 08/25/17 Copy Copies To 1: DESHAUN SHOEMAKER MD, TITUS J Aug 25, 2017 15:41
[2017-08-25] MEDS ORDERED: KETOROLAC 30 MG/ML VIAL IM ONE (15:45)
[2017-08-25] MEDS ORDERED: BENZ-13 PO (15:46)
--- OUTSIDE RECORDS SUMMARY | 2017-08-27 14:20 | XMS REPORT | Clinical Summary ---
Author Author [facility] Organization [facility] Address Unknown Phone Unavailable Care Team Providers Care Program Rep Name Role Phone Rader, Marc Unavailable Fernando Boone MD Unavailable No Pcp, Na PCP Unavailable Source Comments Some departments are not documenting in the electronic medical record. If you do not see the information that you expected, contact Release of Information in the Health Information Management department at [phone] for further assistance in locating additional records.[facility] Allergies Active Allergy Reactions Severity Noted Date [...] during in second 09/03/2015 trimester Overview: Anti [place], anti-D H/O: 09/03/2015 Overview: 4 prior CS. 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
--- OUTSIDE RECORDS SUMMARY | 2017-08-27 14:20 | XMS REPORT | Encounter Summary ---
Author Author [facility] Organization [facility] Address Unknown Phone Unavailable Care Team Providers Care Continuity Writer Name Role Phone PCP Unavailable Encounter Details Date Type Department Care Team Description 06/17/2017 [facility] Link, [facility] [place], [place] Social History Tobacco Use Types Packs/Day Years Used Date Current Some Day Smoker Cigarettes 0.5 12 Smokeless Tobacco: Never Used Alcohol Use Drinks/Week oz/Week Comments No Sex Assigned at Date Recorded Not on file as of this encounter Plan of Treatment Not on fileas of this encounter Visit Diagnoses Not on filein this encounter
--- OUTSIDE RECORDS SUMMARY | 2017-08-27 14:20 | XMS REPORT | Encounter Summary ---
Author Author [facility] Organization [facility] Address Unknown Phone Unavailable Care Team Providers Care Massage Coordinator Name Role Phone PCP Unavailable Encounter Details Date Type Department Care Team Description 06/08/2017 [facility] MULT[facility]LE TEST[facility] Link, [facility] [place], [place] Social History Tobacco Use Types Packs/Day Years Used Date Current Some Day Smoker Cigarettes 0.5 12 Smokeless Tobacco: Never Used Alcohol Use Drinks/Week oz/Week Comments No Sex Assigned at Date Recorded Not on file as of this encounter Plan of Treatment Not on fileas of this encounter Visit Diagnoses Not on filein this encounter
--- OUTSIDE RECORDS SUMMARY | 2017-08-27 14:20 | XMS REPORT | Clinical Summary ---
Author Author [facility] Organization [facility] Address Unknown Phone Unavailable Care Team Providers Care Coach Name Role Phone PP Unavailable Allergies Active Allergy Reactions Severity Noted Date [...] other high risk pregnancies, second trimester 02/18/2017 [place] isoimmunization during in second trimester, not applicable or unspecified fetus Prior poor obstetrical history, antepartum, second trimester 02/18/2017 Maternal obesity, antepartum, second trimester 02/18/2017 Currently Estimated Date of Delivery Comments Yes 07/28/2017 Based on Ultrasound Resolved Problems Problem Noted Date Resolved Date 23 weeks gestation of 10/11/2015 02/18/2017 Anti-D antibodies present in , unspecified trimester, other fetus 10/10/2015 02/18/2017 [place]ud[place]ila isoimmunization during , unspecified trimester, other fetus 02/18/2017 History of delivery, currently 10/10/2015 02/18/2017 , incidental 11/11/2013 11/12/2013 Previous delivery affecting 11/11/2013 11/12/2013 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
--- OUTSIDE RECORDS SUMMARY | 2017-08-27 14:27 | XMS REPORT | Continuity of Care Document ---
Author Author [facility] of [facility] Address Unknown Phone Unavailable Allergies Active Description Code Type Severity Reaction Onset Reported/Identified Relationship to Patient Clinical Status Yes No Known Drug Allergies [id number] Drug Allergy Mild N/A 01/17/2009 Yes sulfamethoxazole [id number] Drug Allergy Unknown N/A 09/17/2014 Yes tramadol [id number] Drug Allergy Unknown N/A 09/17/2014 Yes trimethoprim [id number] Drug Allergy Unknown N/A 09/17/2014 Yes SULFACETAMIDE 5563 DRUG INGREDI N/A Other 10/10/2015 10/10/2015 Yes SULFACETAMIDE 02778 DRUG INGREDI High Anaphylaxis 10/10/2015 10/10/2015 Yes SULFAMETHOXAZOLE-TRIMETHOPRIM 89293 DRUG INGREDI High Swelling 10/10/2015 Yes SULFAMETHOXAZOLE-TRIMETHOPRIM 67786 DRUG INGREDI Med Swelling 10/10/2015 Yes TRAMADOL 54146 DRUG INGREDI High Swelling 10/10/2015 10/10/2015 Yes TRAMADOL 31153 DRUG INGREDI Med Swelling 10/10/2015 10/10/2015 Medications [...] Z3A.12 12 WEEKS GESTATION OF 08/18/2015 MOO GREGROY, ANGELI Fowler Ot F17.210 NICOTINE DEPENDENCE, CIGARETTES, [...] Ot R50.9 FEVER, UNSPECIFIED 07/10/2016 DUSTIN, ALYSE DIRECTOR OF TECHNOLOGY Ot F17.210 NICOTINE DEPENDENCE, CIGARETTES, UNCOMPL 07/10/2016 DUSTIN, ALYSE DIRECTOR OF TECHNOLOGY Ot N39.0 URINARY TRACT INFECTION, SITE NOT SPECIF 07/10/2016 DUSTIN, AYLSE DIRECTOR OF TECHNOLOGY Ot R10.32 LEFT LOWER QUADRANT PAIN 07/11/2016 DUSTIN, ALYSE DIRECTOR OF TECHNOLOGY Ot F17.210 NICOTINE DEPENDENCE, CIGARETTES, UNCOMPL 07/11/2016 DUSTIN, ALYSE DIRECTOR OF TECHNOLOGY Ot N39.0 URINARY TRACT INFECTION, SITE NOT SPECIF 07/11/2016 DUSTIN, ALYSE DIRECTOR OF TECHNOLOGY Ot R10.32 LEFT LOWER QUADRANT PAIN 11/25/2016 [...] PRE- PROCEDURAL LABORATORY EXAMINATION 05/13/2017 YOGI STILES PARTS CASTING MACHINE OPERATOR Ot V28.89 OTHER SPECIFIED SCREENING 05/13/2017 GILA [...] PRE- PROCEDURAL LABORATORY EXAMINATION 05/28/2017 YOGI STILES PARTS CASTING MACHINE OPERATOR Ot V28.89 OTHER SPECIFIED SCREENING 05/28/2017 GILA [...] PSYCHOACTIVE SUBSTANCE ABUSE, IN R 06/25/2017 VALERIA MATRINEZ DO Ot O47.03 FALSE LABOR BEFORE 37 [...] MATERNAL CARE FOR UNSP TYPE SCAR FROM [place] 06/26/2017 VALERIA MARTINEZ DO S Ot O47.03 [...] MICHELLE ALANISVALERIA Ot Z91.19 PATIENT'S NONCOMPLIANCE W [facility] 07/02/2017 GILA GREWAL DO Ot [...] MARTINEZ DO Ot Z91.19 PATIENT'S NONCOMPLIANCE W 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, IN R 07/06/2017 VALERIA MARTINEZ DO Ot O34.219 MATERNAL CARE FOR UNSP TYPE SCAR FROM [place] 07/06/2017 VALERIA MARTINEZ DO Ot O47.03 FALSE [...] FAMILY HISTORY OF MALIGNANT NEOPLASM OF 07/16/2017 GREWAL DO, GILA C Ot Z87.440 PERSONAL HISTORY OF URINARY (TRACT) INFE 07/16/2017 GILA GREWAL DO Ot Z87.898 PERSONAL HISTORY OF OTHER SPECIFIED COND 07/16/2017 GILA GREWAL DO Ot O76 ABNLT IN HEART RATE AND RHYTHM COM 07/20/2017 ARMAAN SIMON Ot D64.9 ANEMIA, UNSPECIFIED 07/20/2017 [place] [facility] PATRICE AALNISA Gregory Ot F12.10 CANNABIS ABUSE, UNCOMPLICATED 07/20/2017 [facility] F14.10 COCAINE ABUSE, UNCOMPLICATED 07/20/2017 [facility], SIMON K Ot F15.10 OTHER STIMULANT ABUSE, UNCOMPLICATED 07/20/2017 [facility] SIMON K Ot F17.210 NICOTINE DEPENDENCE, CIGARETTES, UNCOMPL 07/20/2017 ARMAAN DO SIMON K Ot F32.9 MAJOR DEPRESSIVE DISORDER, SINGLE EPISOD 07/20/2017 ARMAAN PATRICEA K Ot F41.9 ANXIETY DISORDER, UNSPECIFIED 07/20/2017 [facility] SIMON K Ot O99.03 ANEMIA COMPLICATING THE PUERPERIUM 07/20/2017 ARMAAN DO SIMON K Ot O99.325 DRUG USE COMPLICATING THE PUERPERIUM 07/20/2017 ARMAAN DO SIMON K Ot O99.335 SMOKING (TOBACCO) COMPLICATING THE PUERP 07/20/2017 ARMAAN DO SIMON K Ot O99.345 OTHER MENTAL DISORDERS COMPLICATING THE 07/20/2017 [place] [facility] SIMON K Ot O99.89 OTH DISEASES AND CONDITIONS COMPL PREG/C 07/20/2017 [place] [facility] PATRICE ALANISA Gregory Ot R60.0 LOCALIZED EDEMA 07/20/2017 ARMAAN DO SIMON K Ot Z87.440 PERSONAL HISTORY OF URINARY (TRACT) INFE 07/20/2017 ARMAAN PATRICE ALANISA Gregory Ot Z87.59 PERSONAL HISTORY OF COMP OF PREG, CHLDBR 07/20/2017 [facility] Ot Z90.89 ACQUIRED ABSENCE OF OTHER ORGANS 07/20/2017 ARMAAN DO SIMON K Ot Z98.890 OTHER SPECIFIED POSTPROCEDURAL STATES 07/27/2017 DIONTE GREGORY, MICHAELA Baird Ot F12.10 CANNABIS ABUSE, UNCOMPLICATED 07/27/2017 MICHAELA RAPP MD Ot F14.10 COCAINE ABUSE, UNCOMPLICATED 07/27/2017 MICHAELA RAPP MD Ot F15.10 OTHER STIMULANT ABUSE, UNCOMPLICATED 07/27/2017 MICHAELA RAPP MD Ot F17.210 NICOTINE DEPENDENCE, CIGARETTES, UNCOMPL 07/27/2017 MICHAELA RAPP MD Ot F32.9 MAJOR DEPRESSIVE DISORDER, SINGLE EPISOD 07/27/2017 MICHAELA RAPP MD Ot F41.9 ANXIETY DISORDER, UNSPECIFIED 07/27/2017 MICHAELA RAPP MD Ot N93.9 ABNORMAL UTERINE AND VAGINAL BLEEDING, U 07/27/2017 MICHAELA RAPP MD Ot O72.1 OTHER IMMEDIATE HEMORRHAGE 07/27/2017 MICHAELA RAPP MD Ot O99.325 DRUG USE COMPLICATING THE PUERPERIUM 07/27/2017 MICHAELA RAPP MD Ot O99.335 SMOKING (TOBACCO) COMPLICATING THE PUERP 07/27/2017 MICHAELA RAPP MD Ot O99.345 OTHER MENTAL DISORDERS COMPLICATING THE 07/27/2017 MICHAELA RAPP MD Ot O99.89 OTH DISEASES AND CONDITIONS COMPL PREG/C 07/27/2017 MICHAELA RAPP MD Ot R11.2 NAUSEA WITH VOMITING, UNSPECIFIED 07/27/2017 MICHAELA RAPP MD Ot Z86.19 PERSONAL HISTORY OF OTHER INFECTIOUS AND 07/27/2017 MICHAELA RAPP MD Ot Z87.59 PERSONAL HISTORY OF COMP OF PREG, CHLDBR 07/27/2017 MICHAELA RAPP MD Ot Z90.89 ACQUIRED ABSENCE OF OTHER ORGANS Procedures Code Description Performed By Performed On 74.1 LOW CERVICAL 08/25/2007 99.77 APPL/ADMIN OF AN ADHESION BARRIER SUBSTA 08/25/2007 72.79 VACUUM EXTRACT DEL NEC 03/21/2009 74.1 LOW CERVICAL 03/21/2009 74.1 LOW CERVICAL 11/02/2012 99.77 APPL/ADMIN OF AN ADHESION BARRIER SUBSTA 11/02/2012 43628 ROUTINE VENIPUNCTURE 06/08/2013 80573 UA OB DIP 06/08/2013 29371 URINE TEST (IN- HOUSE) 06/08/2013 29362 TRICHOMONAS (IN-HOUSE) 06/08/2013 45623 URINE DRUG SCREEN (IN-HOUSE ) 06/08/2013 22650 CBC 06/08/2013 19905 TSH 06/08/2013 95537 HIV ANTIBODIES (RML) 06/09/2013 67207 BLOOD TYPE/Rh FACTOR 06/09/2013 [id number] ANTIBODY SCREEN (RESULT ONLY) 06/09/2013 92265 DIRECT VESTA 06/09/2013 85254 RUBELLA ANTIBODY, IGG 06/09/2013 19360 ANTIBODY IDENTIFICATION 06/09/2013 31397 CULTURE, URINE 06/09/2013 53106 US OB - EARLY <14 WEEKS 06/10/2013 41674 SYPHILLIS-[facility] 06/10/2013 05708 HEP B ANTIBODY ([facility]) 06/10/2013 65110 ANTIBODY SCREEN (order) 06/10/2013 20052 GC/CHLAM PROBE ([facility]) 06/10/2013 66528 PAP SMEAR 06/10/2013 Q0091 PAP SMEAR OBTAIN SMEAR 06/10/2013 52740 CULTURE UROGENITAL 06/11/2013 [id number] MFM US MIDDLE CEREBRAL ARTERY ECHO 11/02/2013 ULR7474 MFM US OB FOLLOW UP TRANSABDOMINAL APPROACH 11/02/2013 WUN6664 MFM US UMBILICAL ARTERY ECHO 11/02/2013 GBJ3457 MFM US BIOPHYSICAL PROFILE WO NON STRESS TESTING 11/02/2013 FMP1849 ANTIGEN TYPING, RBC, OTHER THAN ABORH 11/21/2013 TNZ796 ANTIBODY TITER 11/21/2013 AYE039 ANTIBODY SCREEN 11/21/2013 TYT758 ABO/RH 11/21/2013 HIW070 ANTIBODY IDENTIFICATION 11/21/2013 OVI629 ANTIBODY TITER 11/21/2013 SKK812 ANTIBODY SCREEN 11/21/2013 CYV604 ANTIBODY IDENTIFICATION 11/21/2013 YYL050 ANTIBODY TITER 11/19/2015 FMK627 ANTIBODY IDENTIFICATION 11/19/2015 KUM4205 LS RATIO 11/19/2015 YTQ9673 LAMELLAR BODY COUNTS 11/19/2015 ZBN1917 MISCELLANEOUS TEST 11/19/2015 UJD594 URIC ACID 11/19/2015 LAB20 HEPATIC FUNCTION PANEL 11/19/2015 JSN6480 CANCELLED TEST 11/19/2015 TAS283 CBC AND DIFFERENTIAL 11/19/2015 UZE353 ANTIBODY IDENTIFICATION 11/19/2015 64S85N6 EXTRACTION OF POC, LOW CERVICAL, OPEN AP 01/18/2016 [id number] INTRODUCE OTH THERAP SUBST IN EPIDURAL S 01/21/2016 9GM24IP RESECTION OF BILATERAL FALLOPIAN TUBES, 07/14/2017 26B34Y7 EXTRACTION OF POC, LOW CERVICAL, OPEN AP 07/14/2017 Results Test Result Range ANTIBODY TITER - 10/11/15 16:20 ANTIBODY TITER 0, anti-Lyudmila Complete blood count (CBC) with automated white [...] culture - 06/02/16 00:30 Bacterial urine culture [id number] NRG COLONY COUNT >100,000/ML NRG FTX;REPORTABLE SENSITIVITY [...] culture - 07/10/16 12:32 Bacterial urine culture [id number] NRG COLONY COUNT >100,000/ML NRG FTX;REPORTABLE SENSITIVITY REPORTED AT 1652, 07-11-16 NRG FREE TEXT ENTRY 2 UNUSUAL RESISTANT PATTERN DETECTED; NRG FREE TEXT ENTRY 3 ESBL IDENTIFIED. NR Bacterial susceptibility panel - 07/10/16 12:32 Gentamicin [...] culture - 11/25/16 15:16 Bacterial urine culture [id number] NRG COLONY COUNT >100,000/ML NRG FTX;REPORTABLE PLUS, [...] No 1788 83.6 ng/mL 1789 1.36 1790 96614 mIU/mL 1791 3.11 1792 1.69 ng/mL 1793 0.79 1794 518.84 pg/mL 1795 2.56 1796 4034 3590 783 2735 630 1799 Not increased 1800 1:2456 1801 [...] culture - 05/28/17 20:45 Bacterial urine culture [id number] NRG COLONY COUNT <10,000 NRG FTX;REPORTABLE NO [...] culture - 06/05/17 14:15 Bacterial urine culture [id number] NRG COLONY COUNT <10,000 NRG FTX;REPORTABLE SEE COMMENT NRG URINE CULTURE RESULTS PLUS NRG FREE TEXT ENTRY 2 UNUSUAL RESISTANCE PATTERN DETECTED; NRG FREE TEXT ENTRY 3 ESBL IDENTIFIED. [facility] Bacterial susceptibility panel - 06/05/17 14:15 Gentamicin [...] 11:48 THYROID STIMULATING HORMONE 0.92 u[iU]/mL 0.35-4.94 [id number] - 06/24/17 11:48 Serum or plasma acetaminophen [...] culture - 06/29/17 18:10 Bacterial urine culture [id number] NRG COLONY COUNT 10,000/ML - 100,000/ML NRG [...] NEGATIVE NEGATIVE Urine propoxyphene detection NEGATIVE NEGATIVE * Reference lab test name - 07/14/17 14:15 * Reference lab test results DRUG SCRN CONF NRG Complete blood count (CBC) with automated [...] ABO+Rh group AN NRG Transfusion band number [id number] NRG Blood group antibody screen NEGATIVE NRG K Ag - 07/14/17 14:30 K Ag K NRG [id number] - 07/14/17 14:30 Serum or plasma acetaminophen [...] 07/20/17 19:25 BNP level 68.0 pg/mL <100.0 Complete blood count (CBC) with automated white blood cell (WBC) differential - 07/27/17 00:24 Blood leukocytes automated count (number/volume) 8.4 10*3/uL 4.3-11.0 Blood erythrocytes automated count (number/volume) 3.49 10*6/uL 4.35-5.85 Venous blood hemoglobin measurement (mass/volume) 9.2 g/dL 11.5-16.0 Blood hematocrit (volume fraction) 29 % 35-52 Automated erythrocyte mean corpuscular volume 83 [foz_us] 80-99 Automated erythrocyte mean corpuscular hemoglobin (mass per erythrocyte) 26 pg 25-34 Automated erythrocyte mean corpuscular hemoglobin concentration measurement ( mass/volume) 32 g/dL 32-36 Automated erythrocyte distribution width ratio 14.5 % 10.0-14.5 Automated blood platelet count (count/volume) 519 10*3/uL 130-400 Automated blood platelet mean volume measurement 8.8 [foz_us] 7.4-10.4 Automated blood neutrophils/100 leukocytes 74 % 42-75 Automated blood lymphocytes/100 leukocytes 19 % 12-44 Blood monocytes/100 leukocytes 5 % 0-12 Automated blood eosinophils/100 leukocytes 2 % 0-10 Automated blood basophils/100 leukocytes 1 % 0-10 Blood neutrophils automated count (number/volume) 6.2 10*3 1.8-7.8 Blood lymphocytes automated count (number/volume) 1.6 10*3 1.0-4.0 Blood monocytes automated count (number/volume) 0.4 10*3 0.0-1.0 Automated eosinophil count 0.2 10*3/uL 0.0-0.3 Automated blood basophil count (count/volume) 0.1 10*3/uL 0.0-0.1 Comprehensive metabolic panel - 07/27/17 00:24 Serum or plasma sodium measurement (moles/volume) 140 mmol/L 135-145 Serum or plasma potassium measurement (moles/volume) 3.4 mmol/L 3.6-5.0 Serum or plasma chloride measurement (moles/volume) 104 mmol/L 98-107 Carbon dioxide 23 mmol/L 21-32 Serum or plasma anion gap determination (moles/volume) 13 mmol/L 5-14 Serum or plasma urea nitrogen measurement (mass/volume) 12 mg/dL 7-18 Serum or plasma creatinine measurement (mass/volume) 0.71 mg/dL 0.60-1.30 Serum or plasma urea nitrogen/creatinine mass ratio 17 NRG Serum or plasma creatinine measurement with calculation of estimated glomerular filtration rate > NRG Serum or plasma glucose measurement (mass/volume) 94 mg/dL 70-105 Serum or plasma calcium measurement (mass/volume) 9.5 mg/dL 8.5-10.1 Serum or plasma total bilirubin measurement (mass/volume) 0.2 mg/dL 0.1-1.0 Serum or plasma alkaline phosphatase measurement (enzymatic activity/volume) 111 U/L 40-136 Serum or plasma aspartate aminotransferase measurement (enzymatic activity/ volume) 14 U/L 5-34 Serum or plasma alanine aminotransferase measurement (enzymatic activity/volume ) 13 U/L 0-55 Serum or plasma protein measurement (mass/volume) 7.1 g/dL 6.4-8.2 Serum or plasma albumin measurement (mass/volume) 3.7 g/dL 3.2-4.5 Blood type T Indirect antibody screen panel - 07/27/17 00:24 ABO+Rh group AN NRG Transfusion band number [id number] NRG Blood group antibody screen NEGATIVE NRG Encounters ACCT No. Visit Date/Time Discharge Status Pt. Type Provider Facility Loc./Unit Complaint [id number] 06/08/2013 14:23:00 06/08/2013 23:59:59 CLS Outpatient GHADA KABA DO [id number] 04/26/2013 11:10:00 04/26/2013 23:59:59 CLS Outpatient SHARRON HEAD APRN [id number] 07/27/2017 00:08:00 07/27/2017 02:40:00 DIS Emergency MICHAELA RAPP MD [facility] ER BLEEDING [id number] 07/20/2017 17:33:00 07/20/2017 20:30:00 DIS Emergency SIMON CROOK DO [facility] ER SWELLING BILAT FEET, HEADACHE, 6 DAYS [id number] 07/14/2017 14:10:00 07/16/2017 09:45:00 DIS Inpatient GILA GREWAL DO [facility] LDRP PREVIOUS [id number] 07/06/2017 12:01:00 07/06/2017 14:02:00 DIS Outpatient VALERIA MARTINEZ DO [facility] ABD PAIN [id number] 06/29/2017 17:58:00 06/29/2017 19:29:00 DIS Outpatient VALERIA MARTINEZ DO [facility] LEAKING FLUID/ CONTRACTIONS [id number] 06/26/2017 09:35:00 06/26/2017 10:24:00 DIS Outpatient VALERIA MARTINEZ DO [facility] CONTRACTIONS [id number] 06/25/2017 13:51:00 06/25/2017 23:59:59 CLS Outpatient CARMINA GILA [facility] LABOR [id number] 06/25/2017 19:27:00 06/25/2017 21:25:00 DIS Outpatient VALERIA MARTINEZ DO [facility] LOW BACK PAIN, DECREASED MOVEMENT [id number] 06/24/2017 10:45:00 06/24/2017 17:50:00 DIS Outpatient GILA GREWAL DO [facility] BIOPHYSICAL PROFILE [id number] 06/05/2017 14:03:00 06/06/2017 10:56:00 DIS Inpatient [facility] DIARRHEA [id number] 05/28/2017 20:34:00 05/28/2017 22:00:00 DIS Outpatient VALERIA MARTINEZ DO [facility] BLOOD IN STOOL; CRAMPING;BACK PAIN [id number] 05/13/2017 19:30:00 05/13/2017 20:55:00 DIS Outpatient HELIO GREGORY, MICHAEL Wood [facility] CONTRACTIONS [id number] 12/25/2016 14:09:00 12/25/2016 23:59:59 CLS Outpatient ANGEL GREGORY, RAJESH Gaines [facility] RAD DATING,9 WKS GESTATION Z3A.09 [id number] 11/25/2016 15:13:00 11/25/2016 16:58:00 DIS Emergency SIMON CROOK DO [facility] ER CP [id number] 07/10/2016 12:29:00 07/10/2016 16:36:00 DIS Emergency ALYSE CHAN [facility] ER KIDNEY PAIN [id number] 06/16/2016 23:08:00 06/17/2016 00:14:00 DIS Emergency KAMERON DOSHARRON [facility] ER SORE THROAT,BODY ACHE, FEVER [id number] 06/02/2016 00:21:00 06/02/2016 02:26:00 DIS Emergency MICHAELA RAPP MD [facility] ER BACK PAIN [id number] 04/09/2016 11:41:00 04/09/2016 13:00:00 DIS Emergency STEPHANIE SIMMONS [facility] ER COUGH/CONGESTION RUNNY NOSE [id number] 02/01/2016 12:21:00 02/01/2016 23:59:59 CLS Preadmit GILA GREWAL DO [id number] 01/18/2016 06:03:00 01/21/2016 16:50:00 DIS Inpatient GILA GREWAL DO [facility] LDRP PREVIOUS SECTION [id number] 01/16/2016 12:44:00 01/16/2016 13:30:00 DIS Outpatient GILA GREWAL DO [facility] PREOP PREVIOUS SECTION [id number] 01/13/2016 14:16:00 01/13/2016 15:47:00 DIS Outpatient GILA GREWAL DO [facility] ACUTE K ANTIBODIES, ACUTE D ANTIBODIES [id number] 12/31/2015 02:53:00 12/31/2015 04:47:00 DIS Outpatient MICHAEL CADET MD [facility] BODYACHE FROM FALL , N/V [id number] 12/31/2015 02:10:00 12/31/2015 02:46:00 DIS Emergency KEO CORREIA MD [facility] ER 36 WKS PREG, N/V, BODY ACHES FROM FALL [id number] 12/02/2015 22:08:00 12/02/2015 23:45:00 DIS Outpatient DEMARCO GREGORY, TYRONE Arriaga [facility] WSo CONTRACTIONS [id number] 08/30/2015 08:33:00 08/30/2015 10:06:00 DIS Emergency VALENTIN GREGORY, MARVIN Jenkins [facility] ER VOMITING/DIARRHEA 19 WKS PREG [id number] 08/18/2015 07:17:00 08/18/2015 10:12:00 DIS Emergency MOO GREGORY, ANGELI Fowler [facility] ER SEVERE LOWER ABD PAIN AT 17 WEEKS [id number] 07/23/2015 23:15:00 07/25/2015 09:15:00 DIS Inpatient GILA GREWAL DO [facility] LDRP GENERALIZED ABD PAIN,UTI ,[place] [id number] 07/20/2015 12:50:00 07/22/2015 09:25:00 DIS Inpatient GILA GREWAL DO [facility] LDRP PYELONEPHRITIS WITH PERSISTENT VOMITING [id number] 07/17/2015 20:53:00 07/18/2015 00:52:00 DIS Emergency SIMON CROOK DO [facility] ER ABD PAIN/11 WEEKS PREG [id number] 06/22/2015 23:02:00 06/23/2015 02:34:00 DIS Emergency MICHAELA RAPP MD [facility] ER VOMITING;9 WKS PREG [id number] 05/10/2015 13:03:00 05/10/2015 23:59:59 CLS Outpatient SAHARA GREGORY, DESHAUN Fernandez [facility] RAD INJ LUMBAR SPINE PAIN [id number] 02/17/2015 17:20:00 02/17/2015 17:51:00 DIS Emergency SHARRON MELO DO [facility] ER SORE THROAT/CHEST CONGESTION [id number] 06/22/2014 13:02:00 06/23/2014 17:49:00 DIS Outpatient XAVI GREGORY, MINE Berger [facility] SDC CHOLELITHIASIS [id number] 06/21/2014 09:04:00 06/21/2014 23:59:59 CLS Outpatient GILA GREWAL DO [facility] RAD ABD PAIN, GALL STONES [id number] 06/17/2013 13:43:00 06/17/2013 23:59:59 CLS Outpatient YOGI STILES PARTS CASTING MACHINE OPERATOR [facility] RAD DATING [id number] 11/02/2012 09:00:00 11/05/2012 12:30:00 DIS Inpatient GILA GREWAL DO Brayden [facility] WS REPEAT SECTION [id number] 04/09/2017 05:25:00 Document Registration [id number] 04/09/2017 05:25:00 Document Registration [id number] 04/09/2017 05:11:00 Document Registration [id number] 04/09/2017 05:11:00 Document Registration [id number] 04/09/2017 05:11:00 Document Registration [id number] 04/09/2017 05:11:00 Document Registration [id number] 04/09/2017 05:11:00 Document Registration [id number] 04/09/2017 05:11:00 Document Registration [id number] 04/09/2017 05:11:00 Document Registration [id number] 04/09/2017 05:11:00 Document Registration [id number] 04/09/2017 05:11:00 Document Registration [id number] 04/09/2017 05:11:00 Document Registration [id number] 04/09/2017 05:11:00 Document Registration [id number] 04/09/2017 05:11:00 Document Registration [id number] 04/09/2017 05:11:00 Document Registration [id number] 04/09/2017 05:11:00 Document Registration [id number] 04/09/2017 05:11:00 Document Registration [id number] 04/09/2017 05:11:00 Document Registration [id number] 04/09/2017 05:11:00 Document Registration [id number] 04/09/2017 05:11:00 Document Registration [id number] 02/17/2015 17:19:00 Document Registration [id number] 09/17/2014 20:25:00 Document Registration [id number] 10/29/2012 11:38:00 Document Registration [id number] 10/26/2012 13:00:00 Document Registration [id number] 10/13/2012 19:51:00 Document Registration [id number] 10/09/2012 13:51:00 Document Registration [id number] 07:40:00 Document Registration [id number] 08/18/2012 10:40:00 Document Registration [id number] 12/10/2011 12:49:00 Document Registration [id number] 05/26/2011 15:07:00 Document Registration [id number] 03/24/2011 21:34:00 Document Registration [id number] 10/22/2010 10:06:00 Document Registration [id number] 10/21/2010 15:02:00 Document Registration [id number] 03/21/2009 05:47:00 Document Registration [id number] 03/14/2009 10:11:00 Document Registration [id number] 01/21/2009 09:35:00 Document Registration [id number] 01/17/2009 16:20:00 Document Registration [id number] 08/25/2007 06:05:00 Document Registration [id number] 08/06/2007 21:31:00 Document Registration [id number] 07/27/2007 18:45:00 Document Registration [id number] 06/09/2007 11:51:00 Document Registration [id number] 06/04/2007 13:13:00 Document Registration [id number] 05/19/2007 11:22:00 Document Registration [id number] 04/13/2017 08:12:28 04/13/2017 23:59:59 CLS Outpatient [facility] [id number] 04/13/2017 07:52:23 04/13/2017 23:59:59 CLS Outpatient DALIA PRADO [facility] [id number] 04/13/2017 07:51:17 04/13/2017 23:59:59 CLS Outpatient [facility] [id number] 03/19/2017 08:05:50 03/19/2017 23:59:59 CLS Outpatient [facility] [id number] 03/19/2017 07:55:22 03/19/2017 23:59:59 CLS Outpatient [facility] [id number] 03/19/2017 07:55:09 03/19/2017 23:59:59 CLS Outpatient DIONE SCHROEDER [facility] [id number] 02/18/2017 09:15:56 02/18/2017 23:59:59 CLS Outpatient [facility] [id number] 02/18/2017 08:26:14 02/18/2017 23:59:59 CLS Outpatient [facility] [id number] 02/18/2017 08:25:53 02/18/2017 23:59:59 CLS Out[facility]ALIA [facility] [id number] 12/24/2015 13:16:42 12/24/2015 23:59:59 CLS Outpatient [facility] [id number] 12/24/2015 12:53:08 12/24/2015 23:59:59 CLS Outpatient MARIELLA [facility] [id number] 12/13/2015 10:39:10 12/13/2015 23:59:59 CLS Outpatient [facility] [facility] [id number] 12/13/2015 10:23:49 12/13/2015 23:59:59 CLS Outpatient MARIELLA [facility] [id number] 11/01/2015 13:11:30 11/01/2015 23:59:59 CLS Outpatient [place] [facility] [id number] 11/01/2015 12:41:57 11/01/2015 23:59:59 CLS Outpatient [facility] [id number] 10/11/2015 17:56:07 Document Registration [id number] 10/11/2015 16:04:34 Document Registration [id number] 10/11/2015 15:00:48 Document Registration [id number] 10/11/2015 14:58:43 Document Registration [id number] 10/27/2013 09:32:46 Document Registration [id number] 10/13/2013 10:13:31 Document Registration [id number] 09/29/2013 07:43:16 Document Registration [id number] 09/15/2013 10:42:33 Document Registration [id number] 09/01/2013 10:44:59 Document Registration [id number] 08/04/2013 11:16:36 Document Registration
== END 2017-08-25 16:27 | disposition home or self-care (01) ==
LOC: EDUNIT# 15:27 → ER 15:28
DX: J11.1 Influenza due to unidentified influenza virus with other respiratory manifestations (principal); K21.9 Gastro-esophageal reflux disease without esophagitis; F41.9 Anxiety disorder, unspecified; F32.9 Major depressive disorder, single episode, unspecified; F12.10 Cannabis abuse, uncomplicated; F15.10 Other stimulant abuse, uncomplicated; F14.10 Cocaine abuse, uncomplicated; Z86.19 Personal history of other infectious and parasitic diseases; Z87.440 Personal history of urinary (tract) infections; Z87.59 Personal history of other complications of pregnancy, childbirth and the puerperium; Z90.89 Acquired absence of other organs; Z88.2 Allergy status to sulfonamides; Z88.8 Allergy status to other drugs, medicaments and biological substances
CPT/HCPCS: 87430; 87804; 96372; 99284

== ENCOUNTER 2017-10-12 09:45 | Emergency (ER) | payer MEDICAID ==
[~2017-10-12] VITALS: Ht 162.6 cm; Wt 90.7 kg
[~2017-10-12 09:45] MED LIST changes: +BENZ-13 PO
--- OUTSIDE RECORDS SUMMARY | 2017-10-12 09:50 | XMS REPORT | Clinical Summary ---
Author Author [facility] Organization [facility] Address Unknown Phone Unavailable Care Team Providers Care Hr Generalist Name Role Phone PP Unavailable Allergies Active [...] 10/06/2013 11/12/2013 , status unknown 08/21/2013 11/12/2013 [place] isoimmunization in 08/04/2013 11/12/2013 Placental abruption, antepartum 08/04/2013 11/12/2013 abnormality suspected, antepartum condition 08/04/2013 11/12/2013 Immunizations Name Dates Previously Given Next Due [...] Series) CERVICAL CANCER SCREENING 09/17/2007 Influenza Vaccine (Season 03/13/2018 06/08/2013 Ended) DTaP,Tdap,and Td Vaccines 07/16/2027 07/16/2017, 11/12/2013, 08/18/2012, (8 - Td) Additional history exists Results Not on filefrom Last 3 Months
[2017-10-12 10:09] LABS: BILIRUBIN,URINE NEGATIVE (NEGATIVE); CLARITY,URINE CLEAR; COLOR,URINE YELLOW; GLUCOSE, URINE (UA) NEGATIVE (NEGATIVE); KETONES,URINE NEGATIVE (NEGATIVE); LEUKOCYTE ESTERASE ,URINE 1+ (NEGATIVE); NITRITE,URINE NEGATIVE (NEGATIVE); PH,URINE 7 (5-9); PROTEIN,URINE NEGATIVE (NEGATIVE); UROBILINOGEN,URINE NORMAL (NORMAL)
[2017-10-12 10:17] LABS: BACTERIA,URINE NEGATIVE /HPF
[2017-10-12 10:28] LABS: BASOPHILS % (AUTO) 0 % (0-10); EOSINOPHILS # (AUTO) 0.1 10^3/uL (0.0-0.3); EOSINOPHILS % (AUTO) 2 % (0-10); HEMATOCRIT 34 % (35-52); HEMOGLOBIN 10.2 G/DL (11.5-16.0); LYMPHOCYTES # (AUTO) 0.9 X 10^3 (1.0-4.0); LYMPHOCYTES % (AUTO) 17 % (12-44); MEAN CORPUSCULAR HEMOGLOBIN 24 PG (25-34); MEAN CORPUSCULAR HGB CONC 30 G/DL (32-36); MEAN CORPUSCULAR VOLUME 78 FL (80-99); MEAN PLATELET VOLUME 9.6 FL (7.4-10.4); MONOCYTES # (AUTO) 0.5 X 10^3 (0.0-1.0); MONOCYTES % (AUTO) 10 % (0-12); NEUTROPHILS # (AUTO) 3.6 X 10^3 (1.8-7.8); NEUTROPHILS % (AUTO) 71 % (42-75); PLATELET COUNT 313 10^3/uL (130-400); RED BLOOD COUNT 4.34 10^6/uL (4.35-5.85); RED CELL DISTRIBUTION WIDTH 15.3 % (10.0-14.5); WHITE BLOOD COUNT 5.1 10^3/uL (4.3-11.0)
[2017-10-12 10:58] LABS: ALANINE AMINOTRANSFERASE 29 U/L (0-55); ALBUMIN 4.1 GM/DL (3.2-4.5); ALKALINE PHOSPHATASE 74 U/L (40-136); BILIRUBIN,TOTAL 0.2 MG/DL (0.1-1.0); BUN/CREATININE RATIO 14; CALCIUM 9.4 MG/DL (8.5-10.1); CARBON DIOXIDE 26 MMOL/L (21-32); CHLORIDE 108 MMOL/L (98-107); CREATININE SERUM 0.73 MG/DL (0.60-1.30); GFR ESTIMATED > 60; GLUCOSE 87 MG/DL (70-105); SODIUM 139 MMOL/L (135-145); TOTAL PROTEIN 7.4 GM/DL (6.4-8.2)
[2017-10-12 11:03] LABS: AMPHETAMINE SCREEN, URINE NEGATIVE (NEGATIVE); BARBITURATE SCREEN URINE NEGATIVE (NEGATIVE); BENZODIAZEPINES SCREEN URINE NEGATIVE (NEGATIVE); CANNABINOID SCREEN, URINE POSITIVE (NEGATIVE); COCAINE SCREEN URINE NEGATIVE (NEGATIVE); METHADONE STAT NEGATIVE (NEGATIVE); METHAMPHETAMINE SCREEN URINE S NEGATIVE (NEGATIVE); OPIATE SCREEN URINE NEGATIVE (NEGATIVE); OXYCODONE STAT NEGATIVE (NEGATIVE); PROPOXYPHENE STAT NEGATIVE (NEGATIVE); TRICYCLIC ANTIDEPRESSANTS SCRE NEGATIVE (NEGATIVE)
[2017-10-12 11:18] LABS: TSH (THYROID ANALYZER) 0.81 UIU/ML (0.35-4.94)
[2017-10-12] MEDS ORDERED: SCOPOLAMINE 1.5 MG (TRANSDERM-SCOP) PATCH TD ONE (11:30)
[2017-10-12] MEDS ORDERED: MECLIZINE 25 MG (ANTIVERT) TAB PO ONE (11:30)
--- NOTE | 2017-10-12 11:35 | Diagnostic Imaging Report ---
PROCEDURE: CT head without contrast. TECHNIQUE: Multiple contiguous axial images were obtained through the brain without the use of intravenous contrast. INDICATION: Headache and blurred vision. COMPARISON: 06/16/2009. FINDINGS: No acute intracranial hemorrhage, mass effect or edema is demonstrated. The kramer-white junction is preserved. The ventricles appear normal. No focal abnormalities demonstrated. The paranasal sinuses and mastoids are clear as visualized. IMPRESSION: No acute intracranial abnormality. Dictated by: Dictated on workstation # [id number]
[2017-10-12] MEDS ORDERED: MECL-106 PO (11:54)
[2017-10-12] MEDS ORDERED: SCOP1PAT11 TD (11:54)
--- NOTE | 2017-10-12 11:54 | ED General ---
General Chief Complaint: General Problems/Pain Stated Complaint: LIGHT-HEADED,DIZZY,COLD Nursing Triage Note: c/o feeling dizzy and cold. Currently on Keflex for a UTI. Reports symptoms x 2-3 weeks. Pt in no acute distress. Nursing Sepsis Screen: No Definite Risk Source of Information: Patient, Old Records History of Present Illness Date Seen by Provider: Oct 12, 2017 Time Seen by Provider: 09:58 Initial Comments PT ARRIVES VIA POV--FRIEND DROVE HER HERE C/O DIZZINESS --FIRST STATES IT HAS BEEN ONGOING FOR A FEW WEEKS, THEN LATER STATES ONGOING FOR A MONTH OR TWO STATES SHE HAS NOT SOUGHT CARE FOR DIZZINESS AT ANY TIME, AND SYMPTOMS ARE NO DIFFERENT TODAY IN ANY WAY PT STATES SHE HAS HAD THE SAME MULTIPLE TIMES STATES SHE HAS BEEN ANEMIC IN THE PAST AND HAS HAD BLOOD TRANSFUSION STATES SHE HAS BEEN HAVING THE CHILLS/FEELING COLD ALL THE TIME FOR SEVERAL WEEKS TO A MONTH OR TWO STATES SHE HAS BEEN EATING ICE FOR THE LAST 2 MONTHS NO NAUSEA/VOMITING C/O BLURRY VISION FOR 1-2 WEEKS--HAS NOT SEEN EYE DR FOR THIS PROBLEM OR SOUGHT CARE BY ANYONE FOR THIS PROBLEM PT ALSO STATES SHE WAS SEEN IN ER IN [place], [place] LAST THURSDAY AND THURSDAY FOR UTI--WAS FIRST PLACED ON CIPRO, THEN SWITCHED TO KEFLEX. SHE STATES THOSE SYMPTOMS HAVE RESOLVED PT DELIVERED 07/14/17. PT REPEATEDLY TESTED + FOR MULTIPLE DRUGS THROUGHOUT AND BOTH PT AND BABY TESTED + FOR METHAMPHETAMINES AT TIME OF DELIVERY CHILD WAS TAKEN INTO [facility] 07/20/17 PT WITH MULTITUDE OF VISITS HERE--EXTENSIVE DRUG ABUSE HISTORY AND HAS TESTED POSITIVE FOR A MULTITUDE OF DRUGS AT VARIOUS TIMES, INCLUDING DURING PREGNANCIES PT ALWAYS CLAIMS "THIS HOSPITAL SCREWED UP AND IT SAID I POPPED POSITIVE FOR DRUGS AND I'M CLEAN" --DESPITE MULTIPLE POSITIVE DRUG SCREENS PCP: DR. SHOEMAKER ENGINEERING RECRUITER: DR. GREWAL Allergies and Home Medications Allergies Coded Allergies: sulfamethoxazole (Verified Allergy, Unknown, 09/17/14) tramadol (Verified Allergy, Unknown, 09/17/14) trimethoprim (Verified Allergy, Unknown, 09/17/14) Home Medications Benzonatate 100 Mg Capsule, 100 MG PO Q6H PRN for COUGH Prescribed by: SANTANA TAYLOR on 08/25/17 1546 Calcium Carbonate 200 Mg Tab.chew, 200 MG PO Q4H, (Reported) Docusate Sodium 100 Mg Capsule, 100 MG PO BID Prescribed by: GILA GREWAL on 07/16/17857 Guaifenesin/Dextromethorphan 5 Ml Syrup, 10 ML PO Q4H PRN for COUGH Prescribed by: GILA GREWAL on 07/16/17857 Hydrocodone/Acetaminophen 1 Each Tablet, 1 EA PO q6hr PRN for PAIN-MODERATE Prescribed by: GILA GREWAL on 07/16/17 08 Ibuprofen 600 Mg Tablet, 600 MG PO Q6H Prescribed by: GILA GREWAL on 07/16/17 08 Iron Polysaccharide Complex 150 Mg Capsule, 150 MG PO BID WITH MEALS Prescribed by: GILA GREWAL on 07/16/17 08 Meclizine HCl 25 Mg Tablet, 25-50 MG PO Q6H Prescribed by: SIMON CROOK on 10/12/17 1154 Vit/Iron Fumarate/FA 1 Each Tablet, 1 EACH PO DAILY, (Reported) Scopolamine 1 Each Patch.td72, 1 EACH TD Q72 HOURS Prescribed by: SIMON CROOK on 10/12/17 1154 Patient Home Medication List Home Medication List Reviewed: Yes Constitutional: chills, dizziness, No fever, No malaise, No weakness EENTM: see HPI, blurred vision Respiratory: no symptoms reported, No short of breath Cardiovascular: no symptoms reported, No chest pain Gastrointestinal: no symptoms reported, No abdominal pain, No loss of appetite , No nausea, No vomiting Genitourinary: no symptoms reported : No Musculoskeletal: no symptoms reported Skin: no symptoms reported Psychiatric/Neurological: See HPI (DIZZINESS), Denies Headache, Denies Numbness , Denies Paresthesia, Denies Seizure, Denies Tingling, Denies Tremors, Denies Weakness Hematologic/Lymphatic: No Symptoms Reported Immunological/Allergic: no symptoms reported Past Kowmyzm-[id number] Hx Patient Social History Alcohol Use: Occasionally Uses Recreational Drug Use: Yes Drug of Choice: THC, METH/AMPHETAMINES, COCAINE, BENZO'S, OPIATES Smoking Status: Current Everyday Smoker (1 PPD) Type Used: Cigarettes (1 PPD) Recent Foreign Travel: No Contact w/Someone Who Travel: No Recent Infectious Disease Expo: No Recent Hopitalizations: No Immunizations Up To Date Tetanus Booster (TDap): More than 5yrs Date of Influenza Vaccine: Jul 16, 2017 Seasonal Allergies Seasonal Allergies: No Surgeries History of Surgeries: Yes ( X 6; LEEP; CLOSED REDUCION OF ANKLE FX) Surgeries: Adenoidectomy, Section, Gallbladder, Orthopedic Respiratory History of Respiratory Disorde: No Cardiovascular History of Cardiac Disorders: No Neurological History of Neurological Disord: No Reproductive System Hx : 8 Hx Para: 6 (HISTORY OF PLACETAL ABRUPTION WITH PREVIOUS ) Hx Total # of Abortions (Spona: 2 (1 ELECTIVE ) Hx Reproductive Disorders: Yes (CERVICAL DYSPLASIA--S/P LEEP) Sexually Transmitted Disease: Yes (CHLAMYDIA, HPV) HIV/AIDS: No Female Reproductive Disorders: Denies Genitourinary History of Genitourinary Disor: Yes Genitourinary Disorders: Bladder Infection, UTI-Chronic Gastrointestinal History of Gastrointestinal Di: Yes Gastrointestinal Disorders: Gastroesophageal Reflux Musculoskeletal History of Musculoskeletal Dis: Yes (SELF-REPORTED BACK PAIN/DEGENERATIVE DISC DISEASE; ANKLE FX) Musculoskeletal Disorders: Degenerate Disk Disease, Chronic Back Pain, Fractures Endocrine History of Endocrine Disorders: No HEENT History of HEENT Disorders: No Cancer History of Cancer: No Psychosocial History of Psychiatric Problem: Yes (POLYSUBSTANCE ABUSE) Behavioral Health Disorders: Anxiety, Depression Integumentary History of Skin or Integumenta: No Blood Transfusions History of Blood Disorders: Yes (ANEMIA; BLOOD TYPE A NEGATIVE; ANTI TAYLOR AND ANTI D ANTIBODIES) Adverse Reaction to a Blood Tr: No Family Medical History Significant Family History: Cancer, Hypertension Family Medial History: Arthritis (pt's mother) FH: cancer (grandmother) Physical Exam Vital Signs Vital Signs - First Documented 10/12/17 10:05 Temp 96.9 Pulse 70 Resp 16 B/P (MAP) 122/75 (91) Pulse Ox 98 O2 Delivery Room Air Capillary Refill : Less Than 3 Seconds General Appearance: WD/WN, Other (PT VERY HOSTILE FROM ARRIVAL . SPEECH SLIGHTLY SLOW/THICK TONGUED--APPEARS TO BE UNDER THE INFLUENCE OF SOME SUBSTANCE /S) HEENT: PERRL/EOMI, TMs Normal (EXCEPT MILDLY SCLEROTIC BILATERALLAY), Normal ENT Inspection, Pharynx Normal Neck: Full Range of Motion, Normal Inspection, Non Tender, Supple Respiratory: Normal Breath Sounds, No Accessory Muscle Use, No Respiratory Distress Cardiovascular: Regular Rate, Rhythm, No Edema, No JVD, No Murmur, Normal Peripheral Pulses Gastrointestinal: Normal Bowel Sounds, No Organomegaly, No Pulsatile Mass, Non Tender, Soft Back: Normal Inspection, No CVA Tenderness, No Vertebral Tenderness Extremity: Normal Capillary Refill, Normal Inspection, Normal Range of Motion, Non Tender, No Calf Tenderness, No Pedal Edema Neurologic/Psychiatric: Alert, Oriented x3, No Motor/Sensory Deficits, deputy clerk II- XII Norm as Tested Skin: Normal Color, Warm/Dry, Other (EXTENSIVE SORES/SCABS/SCARS TO FACE) Progress/Results/Core Measures Suspected Sepsis Recent Fever Within 48 Hours: No Infection Criteria Present: Documented Infection New/Unexplained Altered Menta: No Sepsis Screen: No Definite Risk Sepsis Diagnosis: SIRS Temperature:96.9 Pulse: 70 Respiratory Rate: 16 Laboratory Tests 10/12/17 10:20: White Blood Count 5.1 Blood Pressure 122 /75 Mean: 91 Laboratory Tests 10/12/17 10:20: Creatinine 0.73, Platelet Count 313, Total Bilirubin 0.2 Results/Orders Lab Results Laboratory Tests Test 10/12/17 09:55 10/12/17 10:20 Range/Units Urine Color YELLOW Urine Clarity CLEAR Urine pH 7 5-9 Urine Specific [place] 1.010 L 1.016-1.022 Urine Protein NEGATIVE NEGATIVE Urine Glucose (UA) NEGATIVE NEGATIVE Urine Ketones NEGATIVE NEGATIVE Urine Nitrite NEGATIVE NEGATIVE Urine Bilirubin NEGATIVE NEGATIVE Urine Urobilinogen NORMAL NORMAL MG/DL Urine Leukocyte Esterase 1+ H NEGATIVE Urine RBC (Auto) NEGATIVE NEGATIVE Urine RBC NONE /HPF Urine WBC 2-5 /HPF Urine Squamous Epithelial Cells 5-10 /HPF Urine Crystals NONE /LPF Urine Bacteria NEGATIVE /HPF Urine Casts NONE /LPF Urine Mucus NEGATIVE /LPF Urine Culture Indicated NO Urine Opiates Screen NEGATIVE NEGATIVE Urine Oxycodone Screen NEGATIVE NEGATIVE Urine Methadone Screen NEGATIVE NEGATIVE Urine Propoxyphene Screen NEGATIVE NEGATIVE Urine Barbiturates Screen NEGATIVE NEGATIVE Ur Tricyclic Antidepressants Screen NEGATIVE NEGATIVE Urine Phencyclidine Screen NEGATIVE NEGATIVE Urine Amphetamines Screen NEGATIVE NEGATIVE Urine Methamphetamines Screen NEGATIVE NEGATIVE Urine Benzodiazepines Screen NEGATIVE NEGATIVE Urine Cocaine Screen NEGATIVE NEGATIVE Urine Cannabinoids Screen POSITIVE H NEGATIVE White Blood Count 5.1 4.3-11.0 10^3/uL Red Blood Count 4.34 L 4.35-5.85 10^6/uL Hemoglobin 10.2 L 11.5-16.0 G/DL Hematocrit 34 L 35-52 % Mean Corpuscular Volume 78 L 80-99 FL Mean Corpuscular Hemoglobin 24 L 25-34 PG Mean Corpuscular Hemoglobin Concent 30 L 32-36 G/DL Red Cell Distribution Width 15.3 H 10.0-14.5 % Platelet Count 313 130-400 10^3/uL Mean Platelet Volume 9.6 7.4-10.4 FL Neutrophils (%) (Auto) 71 42-75 % Lymphocytes (%) (Auto) 17 12-44 % Monocytes (%) (Auto) 10 0-12 % Eosinophils (%) (Auto) 2 0-10 % Basophils (%) (Auto) 0 0-10 % Neutrophils # (Auto) 3.6 1.8-7.8 X 10^3 Lymphocytes # (Auto) 0.9 L 1.0-4.0 X 10^3 Monocytes # (Auto) 0.5 0.0-1.0 X 10^3 Eosinophils # (Auto) 0.1 0.0-0.3 10^3/uL Basophils # (Auto) 0.0 0.0-0.1 10^3/uL Sodium Level 139 135-145 MMOL/L Potassium Level 4.0 3.6-5.0 MMOL/L Chloride Level 108 H 98-107 MMOL/L Carbon Dioxide Level 26 21-32 MMOL/L Anion Gap 5 5-14 MMOL/L Blood Urea Nitrogen 10 7-18 MG/DL Creatinine 0.73 0.60-1.30 MG/DL Estimat Glomerular Filtration Rate > 60 BUN/Creatinine Ratio 14 Glucose Level 87 70-105 MG/DL Calcium Level 9.4 8.5-10.1 MG/DL Magnesium Level 2.0 1.8-2.4 MG/DL Total Bilirubin 0.2 0.1-1.0 MG/DL Aspartate Amino Transf (AST/SGOT) 19 5-34 U/L Alanine Aminotransferase (ALT/SGPT) 29 0-55 U/L Alkaline Phosphatase 74 40-136 U/L Total Protein 7.4 6.4-8.2 GM/DL Albumin 4.1 3.2-4.5 GM/DL TSH [place] Testing 0.81 0.35-4.94 UIU/ML My Orders Orders - SIMON CROOK DO Urine Bedside (10/12/17 10:01) Ua Culture If Indicated (10/12/17 10:01) Saline Lock/Iv-Start (10/12/17 10:06) Cbc With Automated Diff (10/12/17 10:06) Comprehensive Metabolic Panel (10/12/17 10:06) Drug Screen Stat (Urine) (10/12/17 10:06) Magnesium (10/12/17 10:06) Thyroid Analyzer (10/12/17 10:06) Ct Head Wo (10/12/17 11:14) Scopolamine Patch (Transderm-Scop Patch) (10/12/17 11:30) Meclizine Tablet (Antivert Tablet) (10/12/17 11:30) Vital Signs/I&O Vital Sign - Last 12Hours 10/12/17 10:05 Temp 96.9 Pulse 70 Resp 16 B/P (MAP) 122/75 (91) Pulse Ox 98 O2 Delivery Room Air Capillary Refill : Less Than 3 Seconds Blood Pressure Mean: 91 Point of Care Testing Urine -Bedside: Negative Progress Note : Progress Note SLEPT VERY SOUNDLY THROUGHOUT ENTIRE ER STAY IS VERY BELLIGERANT/HOSTILE SOON SHE IS WAKEN UP, AND THREATENS THAT SHE "WILL THERESA YOU IF I FALL DOWN" PT AMBULATED IN AND OUT OF ER ON HER OWN WITHOUT ANY DIFFICULTY Diagnostic Imaging Comments CT HEAD--NO ACUTE PROCESS, PER RADIOLOGIST REPORT @ 1151 Reviewed: Reviewed by Me Departure Impression Impression: Primary Impression: Dizziness Additional Impressions: Illicit drug use Chronic anemia Disposition: HOME, SELF-CARE Condition: Stable Departure-Patient Inst. Referrals: DESHAUN SHOEMAKER MD (PCP/Family) Primary Care Physician Patient Instructions: Anemia Caused by Low Iron, Adult (DC), Dizziness, Nonvertigo, (DC) Add. Discharge Instructions: LOTS OF CLEAR LIQUIDS SLOW POSITION CHANGES TAKE MULTIVITAMIN WITH IRON EVERY DAY FOLLOW UP WITH DR. SHOEMAKER THIS WEEK FOR FURTHER CARE All discharge instructions reviewed with patient and/or family. Voiced understanding. Scripts Scopolamine (Transderm-Scop) 1 Each Patch.td72 1 EACH TD Q72 HOURS for Dizziness, #3 PATCH Prov: SIMON CROOK DO 10/12/17 Meclizine HCl (Meclizine HCl) 25 Mg Tablet 25-50 MG PO Q6H for Dizziness, #30 TAB Prov: ARMAANSIMON DO 10/12/17 SIMON CROOK DO Oct 12, 2017 11:54
[2017-10-12 12:02] VITALS: BP 152/86
== END 2017-10-12 12:02 | disposition home or self-care (01) ==
LOC: EDUNIT# 09:45 → ER 09:47
DX: R42 Dizziness and giddiness (principal); D64.9 Anemia, unspecified; K21.9 Gastro-esophageal reflux disease without esophagitis; F41.9 Anxiety disorder, unspecified; F32.9 Major depressive disorder, single episode, unspecified; F12.10 Cannabis abuse, uncomplicated; F15.10 Other stimulant abuse, uncomplicated; F14.10 Cocaine abuse, uncomplicated; F17.210 Nicotine dependence, cigarettes, uncomplicated; Z87.59 Personal history of other complications of pregnancy, childbirth and the puerperium; Z87.440 Personal history of urinary (tract) infections; Z88.2 Allergy status to sulfonamides; Z88.6 Allergy status to analgesic agent; Z88.8 Allergy status to other drugs, medicaments and biological substances
CPT/HCPCS: 36415; 70450; 80053; 80306; 81000; 83735; 84443; 84703; 85025